=== PATIENT | female | born 1985 | race Two or more races ===

== ENCOUNTER 2024-11-30 10:13 | Outpatient (AMB) | payer OTHER, SELFPAY ==
--- NOTE | 2024-11-30 10:15 | A.OFFPC_ITS ---
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 Artist Color Separation Required: No Accompanied by: Self / Same As Patient Allergies No Known Allergies Allergy (Verified 11/30/24 10:16) Medication List - Last Reconciled 11/30/24 by Elier Borrero MD losartan 25 mg PO DAILY omeprazole 20 mg PO DAILY tramadol 100 mg PO Q6H PRN Tobacco use date assessed: 11/30/24 Dental Screening Dental Screen Date: 11/30/24 Did you have a dental visit in the last 12 months?: No Did you have a dental problem in the last 6 months where you did not have access to dental care?: No Was dental information given to patient?: No HPI HPI Comments History of Present Illness Details History of Present Illness The patient is a 39-year-old female presenting with chronic pain management and referral for neurosurgery. Cauda equina syndrome: - Diagnosed in 2020, with subsequent teddy k-to-back surgeries including L4-L5 fusion and C1-T1 repair. - Symptoms include worsening numbness an d tingling in the neck, with recent imaging suggesting possible nerve impingement. - Previous interventions include multipl e surgeries, with the last surgery exacerbating symptoms. - Recent imaging performed in [facility], awaiting records transfer for further evaluation. Hypertension: - Blood pressure recorded at 136/88 mmHg , managed with Losartan 25 mg. - Elevated blood pressure attributed to chronic pain. Vitamin D deficiency: - Previously prescribed Vitamin D, now t aking vxwi-sen-omaeslm supplements. Health Maintenance - Mammogram performed annually due to nik craft history of breast cancer. - Pap smear last performed in the previo us year, next due in January. Review of Systems - Neurological: Reports worsening numbne ss and tingling in the neck, arms falling asleep, and paresthesias. - Cardiovascular: Denies chest pain or p alpitations. - Respiratory: Denies dyspnea or cough. - Gastrointestinal: Denies abdominal licha n or changes in bowel habits. 10-point ROS reviewed and negative excep t as noted in HPI Allergies Medications - Losartan 25 mg for hypertension - Tramadol for pain management Medication History - Vitamin D prescribed previously, now t aking bwdp-cja-vliszli supplements. Current Substance Use - Smokes 3-4 cigarettes per day, started in 2019. Substance Use History - Began smoking in 2019 following surger ies and personal stressors. 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 - with two children, is from [place]. Physical Exam General: No apparent distress. Alert and oriented x 3. Head: Normocephalic, atraumatic Eyes: Pupils equal, round, and reactive to light. Extraocular movements intact Throat: Oropharynx clear. No tonsillar enlargement. ropharynx clear. Mucus membranes moist Neck: Supple. No lymphadenopathy. Thyroid non-tender. eft anterior descending artery distention. No jugular vein distention. No bruit. Cardiovascular: Regular rate and rhythm. Normal S1 and S2. No murmurs. murmurs, rubs, or gallops Lungs: Clear to auscultation bilaterally. Breath sounds equal bilaterally. No rales, ronchi, or wheezes. Abdomen: Non-tender. Non-distended. Bowel sounds auscultated. No hepatosplenomegaly. hepatosplenomegaly. No mass/rebound/guarding Extremities: No clubbing, cyanosis, or edema. lubbing, cyanosis, and edema. 2+ pulses Neuro: Central nerves II-XII grossly intact. Motor/sensory intact. Reflexes 2+. Gait normal. Reports tingling and paresthesias in arms. Skin: Warm, dry, and intact. No rash. Discussion Notes I discussed the patient's chronic pain management and the need for a neurosurgery referral. We reviewed the importance of obtaining previous imaging records for further evaluation. I also addressed the patient's hypertension management with Losartan and discussed the potential impact of chronic pain on blood pressure. We talked about the patient's Vitamin D deficiency and the current supplementation regimen. I encouraged the patient to consider smoking cessation and offered support for this. We planned follow-up appointments to review lab results and referrals. Plan 1. Cauda equina syndrome G83.4 H CC 72 - Referral to neurosurgery for further e valuation and management. Awaiting transfer of previous imaging records from [place] for comprehensive assessment. 2. Essential (primary) hypertension I10 - Continue management with Losartan 25 m g. Monitor blood pressure regularly, considering the impact of chronic pain on hypertension. 3. Vitamin D deficiency, unspecified E55.9 - Continue qtjp-dje-jaqbnoi Vitamin D rios pplementation. Monitor levels as part of routine lab work. Treatment Summary Anticapatory Guidance Patient Instructions - Continue taking Losartan 25 mg for blo od pressure management. - Take lnku-msg-hwyxuhx Vitamin D supple ments as directed. - Follow up with neurosurgery and physic al therapy as scheduled. - Consider smoking cessation options and discuss with the doctor if interested. - Return for follow-up in 1-2 weeks to akbar carbajal lab results and referrals. [facility] Surgical History (Updated 11/30/24 @ 10:42 by Elier Borrero MD) History of back surgery Family History (Updated 11/30/24 @ 10:25 by Carolyn Leal MA) Father Prostate cancer Mother Breast cancer Social History 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 1. Little interest or pleasure in doing things: several days 2. Feeling down, depressed, or hopeless: not at all 3. Trouble falling or staying asleep, or sleeping too much: more than half the days 4. Feeling tired or having little energy: nearly every day 5. Poor appetite or overeating: not at all 6. Feeling bad about yourself - or that you are a failure or have let yourself or your family down: not at all 7. Trouble concentrating on things, such as reading the newspaper or watching television: not at all 8. Moving or speaking so slowly that other people could have noticed. Or the opposite - being so fidgety or restless that you have been moving around a lot more than usual: not at all 9. Thoughts that you would be better off or of hurting yourself in some way: not at all Total score: 6 Depression Screening Interpretation: Positive Depression Screening Done: Yes 39260 - PHQ-9 Billing: Yes Source: Developed by Drs. Phu Sanders, Jasson Leiva and colleagues, with an educational letha from [employer]. Thrive Questionnaire Date Thrive assessed: 11/30/24 I am a: Patient What is your living situation today?: I have a steady place to live Within the past 12 months, did the food you bought not last and you didn't have the money to get more?: Never true Within the past 12 months, did you worry whether your food would run out before you got money to buy more?: Never true Do you have trouble paying for medicines?: No Do you have trouble getting transportation to medical appointments?: No Do you have trouble paying your heating and electricity bill?: No Do you have trouble taking care of your child, family member or friend?: No Are you currently unemployed and looking for a job?: No Are you interested in more education?: No Please select the resources that you would like help with: None Currently or been in a relationship where the following occur: I choose not to answer THRIVE Score: 0 AUDIT C Alcohol Use Questionnaire (AUDIT-C) 1. How often do you have a drink containing alcohol?: Never 3. How often do you have six or more drinks on one occasion?: Never Total Score: 0 EUGENIO-7 AMB Questionnaire EUGENIO-7 Date EUGENIO - 7 assessed: 11/30/24 Feeling nervous, anxious, or on edge: 0 = Not at all Not being able to stop or control worryin = Not at all Worrying too much about different things: 0 = Not at all Trouble relaxin = Not at all Being so restless that it is hard to sit still: 0 = Not at all Becoming easily annoyed or irritable: 0 = Not at all Feeling afraid as if something awful might happen: 0 = Not at all Total EUGENIO-7 score (0-4 normal; 5-9 mild; 10-14 moderate; 15-21 severe): 0 Source: Developed by Darcy Wade Kurt Kroenke and colleagues, with an educational letha from [employer]. Physical exam (Primary Care) Depression Screening Interpretation: Positive Currently or been in a relationship where the following occur: I choose not to answer Coding Level of Care Code New Pt Level 3 (35601) Diagnoses Encounter to establish care with new provider Z76.89 Routine lab draw Z01.89 Counseling, unspecified Z71.9 Screening for depression Z13.31 Encounter for screening, unspecified Z13.9 Screening for diabetes mellitus Z13.1 Screening for lipoid disorders Z13.220 Screening for HIV (human immunodeficiency virus) Z11.4 Adjustment disorder with depressed mood F43.21 Chronic lower back pain M54.50; G89.29 History of back surgery Z98.890 Low vitamin D level R79.89 Elevated alkaline phosphatase level R74.8 Cauda equina syndrome G83.4 Primary hypertension I10 Hypertension type: primary hypertension Nicotine use Z72.0 Additional Codes PHQ-9 - 72018 - PHQ-9 Billing: Yes ([id number]) Assessment & Plan Assessment & Plan (1) Encounter to establish care with new provider: Code(s): Z76.89 - Persons encountering health services in other specified circumstances (2) Routine lab draw: Code(s): Z01.89 - Encounter for other specified special examinations (3) Counseling, unspecified: Code(s): Z71.9 - Counseling, unspecified (4) Screening for depression: Code(s): Z13.31 - Encounter for screening for depression (5) Encounter for screening, unspecified: Code(s): Z13.9 - Encounter for screening, unspecified (6) Screening for diabetes mellitus: Code(s): Z13.1 - Encounter for screening for diabetes mellitus (7) Screening for lipoid disorders: Code(s): Z13.220 - Encounter for screening for lipoid disorders (8) Screening for HIV (human immunodeficiency virus): Code(s): Z11.4 - Encounter for screening for human immunodeficiency virus [HIV] (9) Adjustment disorder with depressed mood: Code(s): F43.21 - Adjustment disorder with depressed mood (10) Chronic lower back pain: Code(s): M54.50 - Low back pain, unspecified; G89.29 - Other chronic pain (11) History of back surgery: Code(s): Z98.890 - Other specified postprocedural states Category: Medical (12) Low vitamin D level: Code(s): R79.89 - Other specified abnormal findings of blood chemistry (13) Elevated alkaline phosphatase level: Code(s): R74.8 - Abnormal levels of other serum enzymes (14) Cauda equina syndrome: Code(s): G83.4 - Cauda equina syndrome (15) Hypertension: Code(s): I10 - Essential (primary) hypertension Qualifiers: Hypertension type: primary hypertension Qualified Code(s): I10 - Essential (primary) hypertension (16) Nicotine use: Code(s): Z72.0 - Tobacco use Plan Orders: Orders Hepatitis B Surface Antigen Today Z13.9 - Encounter for screening, unspecified, Z76.89 - Persons encountering health services in other specified circumstances HIV Ab/Ag Today Z13.9 - Encounter for screening, unspecified, Z76.89 - Persons encountering health services in other specified circumstances UA CC w/rflx Micro + Cult Today Z13.9 - Encounter for screening, unspecified, Z76.89 - Persons encountering health services in other specified circumstances Drug Screen Urine Today Z13.9 - Encounter for screening, unspecified, Z76.89 - Persons encountering health services in other specified circumstances Chlamydia Species Ab Panel Today Z13.9 - Encounter for screening, unspecified, Z76.89 - Persons encountering health services in other specified circumstances CT NG by PCR Urine Today Z13.9 - Encounter for screening, unspecified, Z76.89 - Persons encountering health services in other specified circumstances Syphilis Screen Today Z13.9 - Encounter for screening, unspecified, Z76.89 - Persons encountering health services in other specified circumstances Complete Blood Count Auto Diff Today Z13.9 - Encounter for screening, unspecified, Z76.89 - Persons encountering health services in other specified circumstances Comprehensive Met. Panel Today Z13.9 - Encounter for screening, unspecified, Z76.89 - Persons encountering health services in other specified circumstances Hemoglobin A1c Today Z13.9 - Encounter for screening, unspecified, Z76.89 - Persons encountering health services in other specified circumstances Hepatitis B Surface Antibody Today Z13.9 - Encounter for screening, unspecified, Z76.89 - Persons encountering health services in other specified circumstances Hepatitis C Antibody Today Z13.9 - Encounter for screening, unspecified, Z76.89 - Persons encountering health services in other specified circumstances Lipid Panel Today Z13.9 - Encounter for screening, unspecified, Z76.89 - Persons encountering health services in other specified circumstances Vitamin D 1,25 dihydroxy Today Z13.9 - Encounter for screening, unspecified, Z76.89 - Persons encountering health services in other specified circumstances Microalbumin, Random (w Creat) Today I10 - Essential (primary) hypertension PT Evaluation and Treatment Today G89.29 - Other chronic pain, M54.50 - Low back pain, unspecified, Z98.890 - Other specified postprocedural states Referrals Pain Management Referral G89.29 - Other chronic pain, M54.50 - Low back pain, unspecified, Z13.9 - Encounter for screening, unspecified, Z76.89 - Persons enco untering health services in other specified circumstances, Z98.890 - Other specified postprocedural states Neurosurgery Referral G89.29 - Other chronic pain, M54.50 - Low back pain, unspecified, Z98.890 - Other specified postprocedural states
[2024-11-30 10:26] VITALS: BP 136/88; PULSE 96; RESP 16; TEMP 36.8; O2SAT 98; BMI 35.7
== END 2024-11-30 11:00 | disposition home or self-care (01) ==
LOC: HO.HMCFMS 10:14
PROVIDERS: PCP Student in an Organized Health Care Education/Training Program; Visit Provider Student in an Organized Health Care Education/Training Program
DX: M54.50 Low back pain, unspecified (principal); G89.29 Other chronic pain; F43.21 Adjustment disorder with depressed mood; G83.4 Cauda equina syndrome; R79.89 Other specified abnormal findings of blood chemistry; R74.8 Abnormal levels of other serum enzymes; I10 Essential (primary) hypertension; Z72.0 Tobacco use

== ENCOUNTER 2024-11-30 10:13 | Outpatient (REF) | payer OTHER, SELFPAY ==
--- OUTSIDE RECORDS SUMMARY | 2024-11-30 15:24 | XMS_ITS | Encounter Summary ---
Author Organization [facility] Address [facility] [place] [address] Care Team Providers Care Damper Fitter Name Role Phone Grant Ac MD Primary Care Provider [phone] Encounter Details Date Type Department Care Team ([facility] st Contact Info) Description 10/16/2024 Results Follow-Up Primary Care at [address] [address] Jeni Butler, REAL ESTATE OPERATIONS MANAGER [address] [place] [address] CT Head wo Contrast (Standard), Vitamin D, 25-Hydroxy, Comprehensive metabolic panel Fasting required, MRI Brain wwo Contrast (Standard) Social History Tobacco Use Types Packs/Day Years Used Date Smoking Tobacco: Every Day Cigarettes Passive Smoke Exposure: Never Smokeless Tobacco: Never Alcohol Use Standard Drinks/Week Comments Never 1 (1 standard drink = 0.6 oz pur e alcohol) Overall Financial Resource Strain (CARDIA) Answe r Date Recorded How hard is it for you to pa y for the very basics like food, housing, medical care, and heating? Not hard at all 04/12/2022 Exercise Vital Sign Answer Date Recorde d On average, how many days pe r week do you engage in moderate to strenuous exercise (like a brisk walk)? 0 days 04/12/2022 On average, how many minutes do you engage in exercise at this level? 0 min 04/12/2022 Hunger Vital Sign Answer Date Recorded Within the past 12 months, y ou worried that your food would run out before you got the money to buy more. Never true 04/12/19 23 Within the past 12 months, t he food you bought just didn't last and you didn't have money to get more. Never true 04/12/2022 PRAPARE - Transportation Answer Date Re corded In the past 12 months, has l ack of transportation kept you from medical appointments or from getting medications? No 03/19 In the past 12 months, has l ack of transportation kept you from meetings, work, or from getting things needed for daily living? No 04/12/2022 Housing Stability Vital Sign Answer Raúl e Recorded In the last 12 months, was t here a time when you were not able to pay the mortgage or rent on time? No 04/12/2022 In the last 12 months, how many places have you lived? 1 04/12/2022 In the last 12 months, was t here a time when you did not have a steady place to sleep or slept in a long term (including now)? No 04/12/2022 DH IPV Inpatient Questions Answer Date Recorded Does Anyone Try to Keep You From Having Contact with Others or Doing Things Outside Your Home? no 03/14/2024 Feels Threatened by Someone no 02/16 Feels Unsafe at Home or Work/School no 03/14/2024 Physical Signs of Abuse Present no 03/14/2024 Comments No Sex and Gender Information Value Date Recorded Sex Assigned at Not on file Legal Sex Female 2:32 PM EDT Gender Identity Not on file Sexual Orientation Not on file documented as of this encounter Plan of Treatment Upcoming Encounters Date Type Department Care Team (Late st Contact Info) Description 02/01/2025 3:30 PM EST Office Visit Ophthalmology at [address] [address] Umair Chavez MD [address] [place] [address] [place] [address] documented as of this encounter Results * Vitamin B12 (10/16/2024 10:18 AM EDT) Vitamin B12 746 232 - 1,245 pg/mL 10/16/2024 4:26 PM EDT [facility] Blood VENOUS BLOOD SPECIMEN / Unknown Venipuncture / Unknown 10/16/2024 10:18 AM EDT 10/16/2024 10:18 AM EDT us Jeni Butler REAL ESTATE OPERATIONS MANAGER CHEMISTRY ORDERABLES Ivette l Result [facility] [address] [place] [address] documented in this encounter Visit Diagnoses Diagnosis Facial twitching- Primary Other facial nerve disorders Numbness Disturbance of skin sensation documented in this encounter Care Teams Damper Fitter Relationship Specialty Start Date End Date Grant Ac MD [address] [place] [address] PCP - General Family Medicine 07/02/17 documented as of this encounter
--- OUTSIDE RECORDS SUMMARY | 2024-11-30 15:24 | XMS_ITS | Encounter Summary ---
Author Organization [facility] [place] [address] Care Team Providers Care Manager Hematology Name Role Phone Grant Ac MD Primary Care Provider [phone]- [phone] Reason for Visit * Reason Onset Date Comments Medication Refill 02/10/2022 Encounter Details Date Type Department Care Team (Late Contact Info) Description 02/10/2022 Refill Primary Care at [address] [phone] Grant Ac MD [address] [place] [address] Social History Tobacco Use Types Packs/Day Years Used Date Smoking Tobacco: Every Day Cigarettes Smokeless Tobacco: Never Alcohol Use Standard Drinks/Week Comments Never 1 (1 standard drink = 0.6 oz pur e alcohol) Comments No Sex and Gender Information Value Date Recorded Sex Assigned at Not on file Legal Sex Female 2:32 PM EDT Gender Identity Not on file Sexual Orientation Not on file documented as of this encounter Plan of Treatment Upcoming Encounters Date Type Department Care Team (Late Contact Info) Description 02/01/2025 3:30 PM EST Office Visit Ophthalmology at [facility] [address] [place] [address] Umair Chavez MD [address] [facility] [place] [address] documented as of this encounter Visit Diagnoses Not on filedocumented in this encounter Additional Health Concerns Infection Onset Date Last Indicated Resolved Time Rule Out COVID-19 03/14/2024 03/14/2024 03/15/2024 12:01 AM EST documented as of this encounter Care Teams Manager Hematology Relationship Specialty Start Date End Date Grant Ac MD [address] [facility] [place] [address] PCP - General Family Medicine 07/02/17 documented as of this encounter
--- OUTSIDE RECORDS SUMMARY | 2024-11-30 15:24 | XMS_ITS | Encounter Summary ---
Author Organization [facility] [place] [address] Care Team Providers Care Auto Body Shop Manager Name Role Phone Grant Ac MD Primary Care Provider [phone]- [phone] Encounter Details Date Type Department Care Team (Late Contact Info) Description 08/15/2021 Refill Primary Care at [address] [phone] Grant Ac MD [address] [place] [address] Social History Tobacco Use Types Packs/Day Years Used Date Smoking Tobacco: Former Cigarettes Q uit: 03/01/2021 Smokeless Tobacco: Never Alcohol Use Standard Drinks/Week [...] 3:30 PM EST Office Visit Ophthalmology at [facility] [address] [place] [address] Umair Chavez MD [address] [facility] [place] [address] documented as of this encounter Visit Diagnoses Not on filedocumented in this encounter Additional Health Concerns Infection Onset Date Last Indicated Resolved Time Rule Out Respiratory 08/16/2021 08/16/20212 022 1:13 AM EDT Rule Out COVID-19 08/16/2021 08/16/2021 08/17/2021 1:13 AM EDT Rule Out COVID-19 03/14/2024 03/14/2024 03/15/2024 12:01 AM EST documented as of this encounter Care Teams Auto Body Shop Manager Relationship Specialty Start Date End Date Grant Ac MD [address] [place] [address] PCP - General Family Medicine 07/02/17 documented as of this encounter
--- OUTSIDE RECORDS SUMMARY | 2024-11-30 15:24 | XMS_ITS | Encounter Summary ---
Author Organization [facility] One [facility] [place] [address] Care Team Providers Care Pbx Teacher Name Role Phone Grant Ac MD Primary Care Provider [phone]- [phone] Reason for Visit * Reason Onset Date Comments Neck And Arm Pain 09/09/2024 Encounter Details Date Type Department Care Team (Late st Contact Info) Description 09/09/2024 Nurse Triage Primary Care at [address] [place] [address] Seth Rodríguez RN Neck And Arm Pain Social History Tobacco Use Types Packs/Day Years [...] place to sleep or slept in a usp (including now)? No 04/12/2022 [facility] IP[facility] Inpatient [...] on file documented as of this encounter Miscellaneous Notes * Telephone Encounter - Seth Rodríguez RN - 09/10/2024 1:49 PM EDT Left message to call back. [facility] Please send message for Team B nursing response, advise patient to be near phone with ringer and we will attempt to call back as soon as possible. * Telephone Encounter - Seth Rodríguez RN - 09/10/2024 1:49 PM EDT Copied from [facility] #[id number]. Topic: Generic Non-Symptom Based - Generic Call >> Sep 10, 2024 12:48 PM Osiel Christine wrote: Reason: patient calling back PCP: GRANT AC Reason for Call: patient is returning from nurse . Please call back with further assistance. * Telephone Encounter - Seth Rodríguez RN - 09/09/2024 5:22 PM EDT This is an ongoing concern for the patient, she was referred to PT in November 2023 for symptoms, did initial appt and no follow ups after, doing PT exercises at home. Left message to call back. [facility] Please send message for Team B nursing response, advise patient to be near phone with ringer and we will attempt to call back as soon as possible. Message sent to patient via [facility]. * Telephone Encounter - Seth Rodríguez RN - 09/09/2024 5:22 PM EDT Appointment Request From: Ivonne Andrade With Provider: Grant Ac MD [[facility] [place]] Preferred Date Range: 09/10/2024 - 09/14/2024 Preferred Times: Any Reason for visit: Neck and arms pain Health Maintenance Topic: Comments: Hello there I am really in lot of pain my neck and my arms are hurting so badly there getting numb more and more I can???t even vacuum one room with out being so much in pain I have been doing PT every morning and is not getting better my legs are weak now my arms two I am really struggling to get my personal tasks done. documented in this encounter Plan of Treatment Upcoming Encounters Date Type Department Care Team ([facility] st Contact Info) Description 02/01/2025 3:30 PM EST Office Visit Ophthalmology at [address] [phone] Umair Chavez MD [address] [place] [address] [place] [address] documented as of this encounter Visit Diagnoses Not on filedocumented in this encounter Care Teams Pbx Teacher Relationship Specialty Start Date End Date Grant Ac MD [address] [place] [id number] PCP - General Family Medicine 07/02/17 documented as of this encounter
--- OUTSIDE RECORDS SUMMARY | 2024-11-30 15:24 | XMS_ITS | Encounter Summary ---
Author Organization [facility] [place] [address] Care Team Providers Care Ditch Rider Name Role Phone Grant Ac MD Primary Care Provider +1- [phone] Reason for Visit * Reason Onset Date Comments Medication Refill 06/23/2021 Encounter Details Date Type Department Care Team (Late Contact Info) Description 06/23/2021 Refill Primary Care at [address] [phone] Grant Ac MD [address] [place] [address] Social History Tobacco Use Types Packs/Day Years Used Date Smoking Tobacco: Former Cigarettes Smokeless Tobacco: Never Alcohol Use Standard [...] 3:30 PM EST Office Visit Ophthalmology at [facility] [address] [place] [address] Umair Chavez MD [address] [facility] [address] documented as of this encounter Visit Diagnoses Not on filedocumented in this encounter Additional Health Concerns Infection Onset Date Last Indicated Resolved Time Rule Out Respiratory 08/16/2021 08/16/202108/17/2 022 1:13 AM EDT Rule Out COVID-19 08/16/2021 08/16/2021 08/17/2021 1:13 AM EDT Rule Out COVID-19 03/14/2024 03/14/2024 03/15/2024 12:01 AM EST documented as of this encounter Care Teams Ditch Rider Relationship Specialty Start Date End Date Grant Ac MD [address] [place] [address] [place] [address] PCP - General Family Medicine 07/02/17 documented as of this encounter
--- OUTSIDE RECORDS SUMMARY | 2024-11-30 15:24 | XMS_ITS | Encounter Summary ---
Author Organization [facility] Address [facility] [place] [address] Care Team Providers Care Crossing Gateman Name Role Phone Grant Ac MD Primary Care Provider +1- [phone] Reason for Visit * Reason Comments Medication Refill Encounter Details Date Type Department Care Team ([facility] Contact Info) Description 2022 Refill Otolaryngology at [address] [phone] Ninfa Julian PA [address] [place] [id number] Nasal obstruction; Chronic allergic rhinitis Social History Tobacco Use Types Packs/Day Years [...] place to sleep or slept in a correction (including now)? No 04/12/2022 Comments No Sex and Gender Information Value Date Recorded Sex Assigned at Not on file Legal Sex Female 2:32 PM EDT Gender Identity Not on file Sexual Orientation Not on file documented as of this encounter Plan of Treatment Upcoming Encounters Date Type Department Care Team ([facility] st Contact Info) Description 02/01/2025 3:30 PM EST Office Visit Ophthalmology at [address] [phone] Umair Chavez MD [address] [place] [address] [place] [address] documented as of this encounter Visit Diagnoses Diagnosis Nasal obstruction Other diseases of nasal cavity and sinuses Chronic allergic rhinitis Allergic rhinitis, cause unspecified documented in this encounter Additional Health Concerns Infection Onset Date Last Indicated Resolved Time Rule Out COVID-19 03/14/2024 03/14/2024 03/15/2024 12:01 AM EST documented as of this encounter Care Teams Crossing Gateman Relationship Specialty Start Date End Date Grant Ac MD [address] [place] [id number] PCP - General Family Medicine 07/02/17 documented as of this encounter
--- OUTSIDE RECORDS SUMMARY | 2024-11-30 15:24 | XMS_ITS | Clinical Summary ---
Author Organization [facility] Address [facility] [place] [address] Care Team Providers Care Finding Fastener Name Role Phone Grant Ac MD Primary Care Provider [phone] Allergies Active Allergy Reactions Criticality Noted Date Comments Lisinopril Other (See Comments) 02/28/2023 Cough Medications fluticasone propionate (Flonase) 50 mcg/actuation [place], SuspensionIndica tions:Acute non-recurrent frontal sinusitis 2 sprays by Each Nare route daily. 16 mL 11 01/20/2023 Active losartan (Cozaar) 25 mg tabletIndication s:Hypertension, unspecified type TAKE 1 TABLET BY MOUTH EVERY DAY 90 tablet 3 03/17/2024 Active venlafaxine XR (Effexor-XR) 150 mg ER 24 hr capsule Take 1 capsule by mouth daily. 90 capsule 3 04/07/2024 Active omeprazole (PriLOSEC) [address] capsule TAKE 1 CAPSULE BY MOUTH EVERY DAY 30 capsule 5 06/08/2024 Active traMADoL (Ultram) 50 mg tabletIndication s:Other chronic pain,Recurrent low back pain Take 2 tablets by mouth every 6 hours as needed for Pain. Must last 14 days 112 tablet 12/04/2024 Active Active Problems Patient Care Coordination No te Formatting of this note migh t be different from the original. CSA-OA with Dr. 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 Agreement Review/Update every year. Risk assessment completed on: 10/19/2019 ORT Risk Assessment: This SmartLink cannot be used in this activity. DAST-10 Risk Assessment: This SmartLink cannot be used in this activity. Urine Drug Screen (UDS): Yearly or at provider discretion- none on file Assessment & Plan (05/23/2020 2:16 PM EST): Patient Controlled Drug Refill Request Date of last controlled substance refill: 04/28/20 Controlled Substance Agreement on file yes. Is medication due: no- due 05/26/20 Last Urine Drug Screen: none Urine Consistent: none PDMP Consistent: yes Office visit within 6 months: Last visit with authorizing provider: Office Visit: 02/02/20 Next visits with authorizing provider: Visit date not found Assessment & Plan (04/26/2020 10:57 AM EST): Patient Controlled Drug Refill Request Date of last controlled substance refill: 03/31/20 Controlled Substance Agreement on file yes. Is medication due: no- due 04/28/20 Last Urine Drug Screen: none Urine Consistent: none PDMP Consistent: yes Office visit within 6 months: Last visit with authorizing provider: Office Visit: 02/02/20 Next visits with authorizing provider: Visit date not found Assessment & Plan (02/26/2020 4:01 PM EST): Patient Controlled Drug Refill Request Date of last controlled substance refill: 02/04/20 Controlled Substance Agreement on file yes. Is medication due: no- due 03/03/20 Last Urine Drug Screen: none Urine Consistent: none PDMP Consistent: yes Office visit within 6 months: Last visit with authorizing provider: Office Visit: 02/02/20 Next visits with authorizing provider: 03/01/2020 Assessment & Plan (01/04/2020 2:00 PM EDT): Patient Controlled Drug Refill Request Date of last controlled substance refill: 12/10/19 Controlled Substance Agreement on file yes. Is medication due: no- due 01/07/20 Last Urine Drug Screen: none Urine Consistent: none PDMP Consistent: yes Office visit within 6 months: Last visit with authorizing provider: Office Visit: 10/07/19 Next visits with authorizing provider: 01/08/2020 Assessment & Plan (12/07/2019 8:45 AM EDT): Patient Controlled Drug Refill Request Date of last controlled substance refill: 11/12/19 Controlled Substance Agreement on file yes. Is medication due: no- due 12/10/19 Last Urine Drug Screen: none Urine Consistent: none PDMP Consistent: yes Office visit within 6 months: Last visit with authorizing provider: Office Visit: 10/07/19 Next visits with authorizing provider: 01/08/2020 Lower extremity weakness 09/14/2019 s/p revision L4-L5 discectom y for cauda equina 04/21/19 (Dr. Cruz) 04/21/2019 Cauda equina syndrome s/p L4 -L5 laminectomy L4-L5 diskectomy 04/13/2019 (Dr. Cruz) 04/13/2019 Recurrent low back pain 03/22/2019 Plantar fasciitis of left foot 12/18/2017 Plantar wart 12/18/2017 Overview (12/18/2017): Right hallux Encounters Date Type Department Care Team Description 11/27/2024 Refill Primary Care at [address] [phone] Grant Ac MD Other chronic pain; Recurrent low back pain 11/16/2024 Refill Primary Care at [address] [phone] Grant Ac MD Other chronic pain; Recurrent low back pain 10/28/2024 Refill Primary Care at [address] [phone] Brian Horne PA Other chronic pain; Recurrent low back pain 10/23/2024 Telephone Primary Care at [address] [phone] Marcelle Lockhart LPN 10/19/2024 Refill Primary Care at [address] [phone] Grant Ac MD Other chronic pain; Recurrent low back pain; 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 10/17/2024 1:54 PM EDT - 10/17/2024 11:59 PM EDT Hospital Encounter MRI at [address] [phone] Jeni Butler APRN Slurred speech; Generalized weakness Discharge Disposition: Home 10/16/2024 10:30 AM EDT Laboratory Appointment Lab at [address] [address] Encounter for vitamin deficiency screening; Slurred speech; Generalized weakness; Vitamin D deficiency; Numbness; Facial twitching 10/16/2024 10:00 AM EDT - 10/16/2024 11:59 PM EDT Hospital Encounter CAT Scan at [address] [phone] Jeni Butler APRN Slurred speech; Generalized weakness Discharge Disposition: Home 10/16/2024 9:35 AM EDT Office Visit Primary Care at [address] [phone] Jeni Butler APRN Recurrent low back pain; Slurred speech; Facial twitching; Generalized weakness; Numbness; Encounter for vitamin deficiency screening 10/16/2024 Legacy Encounter Primary Care at [address] [phone] Jeni Butler APRN 10/16/2024 Results Follow-Up Primary Care at [address] [phone] Jeni Butler, ELECTRIC MOTOR AND GENERATOR ASSEMBLER CT Head wo Contrast (Standard), Vitamin D, 25-Hydroxy, Comprehensive metabolic panel Fasting required, MRI Brain wwo Contrast (Standard) 10/16/2024 Travel 10/05/2024 Telephone Primary Care at [address] [phone] Gali Carlson RN 10/04/2024 Refill Primary Care at [address] [phone] Grant Ac MD Other chronic pain; Recurrent low back pain 09/21/2024 Refill Primary Care at [address] [phone] Grant Ac MD Other chronic pain; Recurrent low back pain 09/09/2024 Nurse Triage Primary Care at [address] [phone] Seth Rodríguez RN Neck And Arm Pain 09/07/2024 Refill Primary Care at [address] [phone] Grant Ac MD Other chronic pain; Recurrent low back pain from Last 3 Months Immunizations Immunization Administration Dates Next Due Covid-19 Monovalent (Pfizer Comirnaty purple cap) 12yrs+ (5165-2255) 05/17/2020 Influenza Quadrivalent, Preservative Free 2022,03/13/2019 Influenza Trivalent, Preservative Free 2,12/26/2017 Pneumococcal 20-Valent Conjugate (Prevnar 20) Pneumococcal 23-Valent Polysaccharide (Pneumovax 23) 10/10/2020 Td Adult 12/30/2017 Tdap (Adacel, Boostrix) 10/10/2020 Family History Medical History Relation Comments Breast Cancer Maternal Aunt Breast Cancer Maternal Grandmother Ovarian Cancer Neg Hx Uterine Cancer Neg Hx Relation Status Comments Maternal Aunt Maternal Grandmother Social History Tobacco Use Types Packs/Day Years Used Date Smoking Tobacco: Every Day Cigarettes Passive Smoke Exposure: Never Smokeless Tobacco: Never Tobacco Cessation:Ready to Q uit: Not Asked; Counseling Given: Not Answered Alcohol Use Standard Drinks/Week Comments Never 1 [...] place to sleep or slept in a residential (including now)? No 04/12/2022 DH IPV Inpatient [...] on file Sexual Orientation Not on file Last Filed Vital Signs Vital Sign Reading Time Taken Comments Blood Pressure 148/78 10/16/2024 9:27 AM EDT Pulse 99 10/16/2024 9:27 AM EDT Temperature 36.4 C (97.5 F) 03/15/2024 2:00 AM EST Respiratory Rate 24 03/14/2024 10:00 PM EST Oxygen Saturation 98% 10/16/2024 9:27 AM EDT Inhaled Oxygen Concentration - - Weight 88.5 kg (195 lb) 10/16/2024 9:27 AM EDT Height 156 cm (5' 1.42 ) 10/16/2024 9:27 AM EDT Body Mass Index 36.35 10/16/2024 9:27 AM EDT Plan of Treatment Upcoming Encounters Date Type Department Care Team ([facility] st Contact Info) Description 02/01/2025 3:30 PM EST Office Visit Ophthalmology at [address] [phone] Umair Chavez MD [address] [place] [address] [place] [address] Health Maintenance Due Date Last Done Comments HIV screen 2004 Hepatitis C Screening 2004 Hepatitis B vaccine (0-59 yr s) and Risk (1) 2005 Covid-19 Vaccine (3 - 2024-2 6 season) 2024 06/15/2020, 05/17/2020 Influenza (Flu) vaccine (1 o f 1 - Influenza standard series) 11/16/2024 01/30/2023, 01/16/2022, 03/13/2019, Additional history exists HPV test 01/26/2026 01/26/2021 PAP Smear 01/26/2026 01/26/2021 Diabetes Screening (HgbA1C o r Glucose) 10/17/2027 10/16/2024, 03/14/2024, 03/13/2024, Additional history exists Lipid Screening 02/29/2028 02/28/2023 Tetanus/Diphtheria/Pertussis Vaccines (2 - Td or Tdap) 10/10/2030 10/10/2020, 12/30/2017 Pneumococcal Vaccine: At-Ris k 5-49yrs Completed 01/30/2023, 10/10/2020 Medical Devices Implanted Type Area Environmental Quality Analyst Device Identifier Shelf Expiration Date Model / Serial / Lot Seala,Dura,Spi ne,Ext,5ml ([id number]) - [id number] Implanted:Qty: 1 on 04/21/2019 by Kunal Cruz MD at [facility] IMPLANTS DO NOT USE [employer] ([employer]) - [employer]TE[employer] LI [id number] / / [id number] Procedures Procedure Name Priority Date/Time Associated Diagnosis Comments MRI BRAIN WWO CONTRAST (GENERIC) STAT 10/17/2024 2:56 PM EDT Slurred speech Generalized weakness CT HEAD WO CONTRAST (GENERIC) STAT 10/16/2024 10:37 AM EDT Slurred speech Generalized weakness VITAMIN B12 Add-On 10/16/2024 10:18 AM EDT Numbness Facial twitching COMPREHENSIVE METABOLIC PANEL Routine 10/16/2024 10:18 AM EDT Slurred speech Generalized weakness VITAMIN D, 25-HYDROXY Routine 10/16/2024 10:18 AM EDT Encounter for vitamin deficiency screening LIPID PANEL (REFLEX DIRECT LDL) Routine 02/28/2023 10:19 AM EST General medical exam HPV Routine 01/26/2021 11:18 AM EST GASOLINE FINISHER CYTOLOGY FINAL REPORT Routine 01/26/2021 11:18 AM EST from Last 3 Months or Most Recently Relevant to Health Maintenance Results * MRI Brain wwo Contrast (Standard) (10/17/2024 2:56 PM EDT) WORKSTATION ID [id number] DH RAD Anatomical Region Laterality Modality Head Magnetic Resonan ce Impressions 10/17/2024 4:31 PM EDT No acute intracranial abnormalities. No evidence for recent CVA. Subtle, likely chronic and benign white matter changes, as discussed above. Thank you for letting us participate in the care of this patient. If you are a health care provider and have any questions regarding this report, please contact the number below. For patients who have questions please contact the health adult care manager that requested your imaging first. Electronically signed by: ISAI INGRAM MD, [facility] ([phone]), at 10/17/2024 4:31 PM Narrative 10/17/2024 4:31 PM EDT EXAMINATION: MRI BRAIN WWO CONTRAST (STANDARD) CLINICAL HISTORY: slurred speech, weakness R47.81, Slurred speech - R53.1, Weakness TECHNIQUE: MRI of the brain was performed before and after the intravenous administration of 17cc Dotarem. COMPARISON: None FINDINGS: Brain: There are small subcortical white matter signal hyperintensities on T2 limited to the frontal lobes. There is no associated diffusion restriction nor postcontrast enhancement. These white matter findings, although nonspecific, typically reflect chronic microvascular ischemic foci or postinflammatory change. Post migrainous change, Lyme disease, and recreational drug use could look similarly. Intracranial structures are otherwise normal. No mass effect, extra-axial collections, nor infarcts. No abnormal postcontrast enhancement. Cerebral ventricles: Normal. No ventriculomegaly. Bones/joints: Unremarkable. Paranasal sinuses: Normal as visualized. No acute sinusitis. Mastoid air cells: Normal as visualized. No mastoid effusion. Orbits: Unremarkable. Soft tissues: Unremarkable. Procedure Note Isai Ingram MD - 10/17/2024 EXAMINATION: MRI BRAIN WWO CONTRAST (STANDARD) CLINICAL HISTORY: slurred speech, weakness R47.81, Slurred speech - R53.1, Weakness TECHNIQUE: MRI of the brain was performed before and after the intravenousadministration of 17cc Dotarem. COMPARISON: None FINDINGS: Brain: There are small subcortical white matter signal hyperintensities onT2 limited to the frontal lobes. There is no associated diffusion restrictionnor postcontrast enhancement. These white matter findings, althoughnonspecific, typically reflect chronic microvascular ischemic foci orpostinflammatory change. Post migrainous change, Lyme disease, and recreational drug usecould look similarly. Intracranial structures are otherwise normal. No mass effect,extra-axial collections, nor infarcts. No abnormal postcontrast enhancement. Cerebral ventricles: Normal. No ventriculomegaly. Bones/joints: Unremarkable. Paranasal sinuses: Normal as visualized. No acute sinusitis. Mastoid air cells: Normal as visualized. No mastoid effusion. Orbits: Unremarkable. Soft tissues: Unremarkable. IMPRESSION No acute intracranial abnormalities. No evidence for recent CVA. Subtle, likely chronic and benign white matter changes, as discussedabove. Thank you for letting us participate in the care of this patient. If youare a health care provider and have any questions regarding this report,please contact the number below. For patients who have questions please contactthe health adult care manager that requested your imaging first. Electronically signed by: ISAI INGRAM MD, [facility]([phone]), at 10/17/2024 4:31 PM us Jeni Butler APRN IM MRI ORDERABLES Final Result * CT Head wo Contrast (Standard) (10/16/2024 10:37 AM EDT) [employer] Signature WORKSTATION ID [id number] DH RAD Anatomical Region Laterality Modality Head Computed Tomogra phy Impressions 10/16/2024 10:39 AM EDT Negative, unenhanced head CT. I do note that an acute, nonhemorrhagic brain infarct may be missed initially by unenhanced CT. Follow-up [address] scanning or more near-term diffusion MRI should be considered, as clinically appropriate. Thank you for letting us participate in the care of this patient. If you are a health care provider and have any questions regarding this report, please contact the number below. For patients who have questions please contact the health adult care manager that requested your imaging first. Electronically signed by: ISAI INGRAM MD, [facility] ([phone]), at 10/16/2024 10:39 AM Narrative 10/16/2024 10:39 AM EDT EXAMINATION: CT HEAD WO CONTRAST (STANDARD) CLINICAL HISTORY: stroke like symptoms R47.81, Slurred speech - R53.1, Weakness TECHNIQUE: Transaxial images from the skull base to the vertex were acquired without contrast enhancement. MIPS: Unless otherwise stated or recommended, any incidental findings to not require imaging follow up. Dose control: Automated exposure control utilized. Patient had 5 CT scan(s) and 0 myocardial perfusion scan(s) in the past 12 months. COMPARISON: 03/06/2024 FINDINGS: Brain: The intracranial structures appear normal without evidence for mass effect, hemorrhage, or acute infarction. No extra-axial collections nor evidence for head trauma. Cerebral ventricles: Normal. Paranasal sinuses: Clear. Mastoid air cells: Clear. Bones: No significant abnormalities. Soft tissues: No significant abnormalities. Procedure Note Isai Ingram MD - 10/16/2024 EXAMINATION: CT HEAD WO CONTRAST (STANDARD) CLINICAL HISTORY: stroke like symptoms R47.81, Slurred speech - R53.1, Weakness TECHNIQUE: Transaxial images from the skull base to the vertex were acquiredwithout contrast enhancement. MIPS: Unless otherwise stated or recommended, any incidental findings to notrequire imaging follow up. Dose control: Automated exposure control utilized. Patient had 5 CT scan(s) and 0 myocardial perfusion scan(s) in the past12 months. COMPARISON: 03/06/2024 FINDINGS: Brain: The intracranial structures appear normal without evidence formass effect, hemorrhage, or acute infarction. No extra-axial collections norevidence for head trauma. Cerebral ventricles: Normal. Paranasal sinuses: Clear. Mastoid air cells: Clear. Bones: No significant abnormalities. Soft tissues: No significant abnormalities. IMPRESSION Negative, unenhanced head CT. I do note that an acute, nonhemorrhagic brain infarct may be missedinitially by unenhanced CT. Follow-up [address] scanning or more near-term diffusionMRI should be considered, as clinically appropriate. Thank you for letting us participate in the care of this patient. If youare a health care provider and have any questions regarding this report,please contact the number below. For patients who have questions please contactthe health adult care manager that requested your imaging first. Electronically signed by: ISAI INGRAM MD, [facility]([phone]), at 10/16/2024 10:39 AM us Jeni Butler APRN IMG CT ORDERABLES Final R esult * Vitamin D, 25-Hydroxy (10/16/2024 10:18 AM EDT) Vitamin D Total 25 OH 23 21 - 100 ng/ml 10/16/2024 1:17 PM EDT [facility] Vitamin D Total 25 OH Interp Insufficient 10/16/2024 1:17 PM EDT [facility] Blood VENOUS BLOOD SPECIMEN / Unknown Venipuncture / Unknown 10/16/2024 10:18 AM EDT 10/16/2024 10:18 AM EDT us Jeni S Butler ELECTRIC MOTOR AND GENERATOR ASSEMBLER CHEMISTRY ORDERABLES Ivette l Result Performing Organization Address [facility]/ZIP Co de Phone Number [facility] [address] [place] [address] * Vitamin B12 (10/16/2024 10:18 AM EDT) Vitamin B12 746 232 - 1,245 pg/mL 10/16/2024 4:26 PM EDT [facility] Blood VENOUS BLOOD SPECIMEN / Unknown Venipuncture / Unknown 10/16/2024 10:18 AM EDT 10/16/2024 10:18 AM EDT us Jeni S Butler ELECTRIC MOTOR AND GENERATOR ASSEMBLER CHEMISTRY ORDERABLES Ivette l Result Performing Organization Address [facility]/ZIP Co de Phone Number [facility] [address] [place] [address] * (ABNORMAL) Comprehensive metabolic panel Fasting required (10/16/2024 10:18 AM EDT) Glucose 91 65 - 99 mg/dL 10/16/2024 11:03 AM EDT [facility] Comment: Fasting Glucose Interpretive Criteria: Normal: 65-99 mg/dL Prediabetes: 100-125 mg/dL Consistent with Diabetes Mellitus: > or = 126 mg/dL Classification and Diagnosis of Diabetes: Standards of Care in Diabetes - 2022. Diabetes Care 202; 46:S19. Fasting is defined as no caloric intake for at least 8 hours. Blood Urea Nitrogen 7(L) 8 - 18 mg/dL 10/16/2024 11:03 AM [facility] Creatinine 0.48(L) 0.70 - 1.20 mg/dL 10/16/2024 11:03 AM [facility] Sodium 139 135 - 145 mMol/L 10/16/2024 11:03 AM [facility] Potassium 4.4 3.5 - 5.0 mMol/L 10/16/2024 11:03 AM [facility] Chloride 98 98 - 107 mMol/L 10/16/2024 11:03 AM [facility] Carbon Dioxide 27 22 - 31 mMol/L 10/16/2024 11:03 AM [facility] Anion Gap 14 5 - 15 mMol/L 10/16/2024 11:03 AM [facility] Calcium 9.5 8.5 - 10.5 mg/dL 10/16/2024 11:03 AM [facility] Protein, Total 6.9 6.1 - 8.0 g/dL 10/16/2024 11:03 AM [facility] Albumin 4.1 3.2 - 5.2 g/dL 10/16/2024 11:03 AM [facility] Aspartate Aminotransferase 21 <=30 unit/L 10/16/2024 11:03 AM [facility] Alanine Aminotransferase 20 0 - 30 unit/L 10/16/2024 11:03 AM [facility] Alkaline Phosphatase 125(H) 35 - 105 unit/L 10/16/2024 11:03 AM [facility] Bilirubin, Total 0.3 <=1.3 mg/dL 10/16/2024 11:03 AM [facility] Est Glomerular Filtration Rate - Female 125 >=90 mL/min/1. 73 m 10/16/2024 11:03 AM [facility] Comment: This patient's estimated GFR was calculated using the 2020 CKD-EPI equation. The estimated GFR can vary from the measured GFR by up to 30% in the absence of rapidly changing kidney function. Assessment of the estimated GFR is not appropriate when creatinine concentrations are rapidly changing. For clinical situations in which a more precise estimate of GFR is necessary, consider alternative methods of GFR estimation such as a 24-hour urine creatinine clearance. Assignment of CKD stage 1 - 5 for patients with an eGFR near the transition point between stages may be based on clinical assessment of muscle mass and symptoms in addition to eGFR. Link: eGFR Calculator [employer] Fasting Status Yes 10/16/2024 11:03 AM EDT [facility] Blood VENOUS BLOOD SPECIMEN / Unknown Venipuncture / Unknown 10/16/2024 10:18 AM EDT 10/16/2024 10:18 AM EDT us Jeni Butler ELECTRIC MOTOR AND GENERATOR ASSEMBLER CHEMISTRY ORDERABLES Ivette higuera Result [facility] [address] [place] [address] * Lipid Panel (Reflex Direct LDL) (02/28/2023 10:19 AM EST) [facility] Signature Cholesterol, Total 253 mg/dL [facility] Comment: Lower Risk: <200 mg/dL Average Risk: 200-239 mg/dL Higher Risk: >vr=943 mg/dL Triglyceride 194 mg/dL [facility] Comment: Average Risk/Lower Risk: <150 mg/dL Borderline High Risk: 150-199 mg/dL High Risk: 200-499 mg/dL Very High Risk: >ey=076 mg/dL HDL Cholesterol 48 mg/dL [facility] Comment: Males: Higher Risk: <40 mg/dL Females: Higher Risk: <50 mg/dL LDL Cholesterol 166 mg/dL [facility] Comment: Lowest Risk: <100 mg/dL Lower Risk: 100-129 mg/dL Borderline High Risk: 130-159 mg/dL High Risk: 160-189 mg/dL Very High Risk: >tw=009 mg/dL Cholesterol/HDL Ratio 5.[address] [facility] Lipid Interpretation See Note [facility] Comment: Lipid management should be guided by a patient s ASCVD risk, goals and preferences. ACC/AHA Guidelines recommend high intensity statin if clinical ASCVD or LDL greater than or equal to 190 mg/dL. http://tinyurl.com/ZUO-OSC-Jemrxtdek Adults aged 40-75 with LDL 70-189 mg/dL should have their 10 year ASCVD risk estimated with the ACC/AHA ASCVD risk millwork estimator http://tools.acc.org/YKMRL-Dqmy-Yhxsntqcb/ Statin should be discussed if risk greater than or equal to 7.5% in non-diabetics. With diabetes, moderate intensity statin is recommended if risk less than 7.5%, high intensity if risk greater than or equal to 7.5%. Annual lipid monitoring on statins is not necessary. Evaluate secondary causes of Triglycerides greater than 500 mg/dL or LDL greater than 190 mg/dL: See table 6 of ACC/AHA Guideline. Lifestyle modification is a critical component of ASCVD risk reduction. Blood 02/28/2023 10:1 9 AM EST 02/28/2023 10:20 AM EST Narrative Resulting Agency Comment Spec In Lab us Grant Ac MD CHEMISTRY ORDERABLES Final Result Performing Organization Address City/[facility] Co de Phone Number [facility] [address] [place] [phone] * HPV (01/26/2021 11:18 AM EST) HPV16 NEGATIVE NEGATIVE [facility] HPV 18 NEGATIVE NEGATIVE [facility] HPV Other HR NEGATIVE NEGATIVE [facility] HPV Interpretation See Comment [facility] Comment: NEGATIVE for high-risk HPV *. * Testing negative for high risk HPV means that the specimen is negative for the following 14 types tested: types 16, 18, 31, 33, 35, 39, 45, 51, 52, 56, 58, 59, 66, and 68. The test is not intended to detect low risk HPV types. Maddie Amado HPV test Specimen: HPV Testing - Cytology Liquid Based Prep Cervical 01/26/2021 11:1 8 AM EST 01/26/2021 10:29 PM EST Narrative Resulting Agency Comment Spec In Lab us Candace Garcia APRN PATHOLOGY/CYTOLOGY ORDERAB LES Final Result Performing Organization Address City/[facility] Co de Phone Number [facility] [place] [place] [address] * Project Assistant Cytology Final Report (01/26/2021 11:18 AM EST) Project Assistant Cytology Final Report [id number] Location: [facility] The signing pathologist has (i) examined the relevant preparation(s) for the specimen(s) and (ii) rendered or confirmed the diagnosis(es). . Project Assistant Final DIAGNOSIS Normal Negative for intraepithelial lesion or malignancy (NILM). For consensus guidelines for the management of cervical cancer screening test results, please see: http://www.asccp. org . Electronically signed by: Ravindra RYAN(ASCP)Asuncion Verified: 02/10/2021 15:07 Embroidery Patternmaker Performed at: -[facility] Dept. of Pathology, [place], [place] HPV RESULTS HPV16 (Result) Negative HPV18 (Result) Negative HPVOHR (Result) Negative HPV (Interpretation) See Below HPV (Interpretation) Text: NEGATIVE for high-risk HPV *. *Testing negative for high risk HPV means that the specimen is negative for the following 14 types tested: types 16, 18, 31, 33, 35, 39, 45, 51, 52, 56, 58, 59, 66, and 68. The test is not intended to detect low risk HPV types. Maddie amado HPV test Specimen: HPV Testing - Cytology Liquid Based Prep The Maddie amado HPV test was validated, performed and results reported through the [facility] ([facility]) at [facility]. - Jose Carlos Bain, PhD, [facility], Director-[facility] STATEMENT OF ADEQUACY Specimen submitted is satisfactory for evaluation. No endocervical component present. Note: Initial cross-sectional studies suggested that STAR cells were more commonly identified when an endocervical component was present, however subsequent longitudinal studies fail to show that women lacking an endocervical component in a Pap smear are at increased risk for STAR. CLINICAL INFORMATION HPV Option: Concurrent HPV and Pap CT/NG Option: No Preparation: Liquid based Pap Specimen Source: Cervical/Endocerv ical LMP: 01/12/21 Hysterectomy: No : No : No I.U.D.: No Pelvic Radiation: No Hist Abnl Pap/Biopsy: Yes, history of previous abnormal Pap Prior GASOLINE FINISHER Therapy: No Hist of HPV Vaccine: No ICD Diagnosis: Z12.4 Encounter for screening for malignant neoplasm of cervix . CLINICAL INFORMATION Clinical Data, Significant Therapy and Clinical Impression : _ This Pap Test has been evaluated with the assistance of the ThinPrep Pap Test Imaging System. Note: The Pap test is a screening test for cervical cancer with an inherent false-negative rate dependent upon several variables. For further information please contact the [facility] Laboratory. Reference: Ruma MATT. Medical Record Librarian of Pap Smear Results. In: Cely BS, Conrad HH, ed. The Pap Smear. [facility] [place]: Jayson, 2002: 71-77. [facility] 01/26/2021 11:1 8 AM EST us Cnadace Garcia APRN PATHOLOGY/CYTOLOGY ORDERAB LES Final Result [facility] [place] [address] from Last 3 Months or Most Recently Relevant to Health Maintenance Insurance [place] [employer] Advance Directives Documents on File Type Date Recorded Patient Nutrition Helper Expl anation Personal Nutrition Helper 12/03/2019 8:36 AM * Attempt Cardiopulmonary Resuscitation - Inpatient (Latest Code Status on File) Date Activated Date Inactivated Comments 11/28/2022 6:38 PM 11/29/2022 2:31 PM Question Answer Comments Code Status decision made by: Patient * Attempt Cardiopulmonary Resuscitation - Inpatient Date Activated Date Inactivated Comments 11/28/2022 5:48 PM 11/28/2022 6:38 PM Question Answer Comments Code Status decision made by: Patient * Partial Code. Date Activated Date Inactivated Comments 09/14/2019 10:20 AM 09/14/2019 7:12 PM Question Answer Comments Does patient have capacity to make decision: Yes Code Limitations: Do not intubate * Full Code Date Activated Date Inactivated Comments 04/21/2019 4:12 AM 04/22/2019 1:38 PM Question Answer Comments Does patient have capacity to make decision: Yes * Full Code Date Activated Date Inactivated Comments 04/21/2019 12:54 AM 04/21/2019 4:12 AM Question Answer Comments Does patient have capacity to make decision: Yes Care Teams Finding Fastener Relationship Specialty Start Date End Date Grant Ac MD [address] [place] [id number] PCP - General Family Medicine 07/02/17
--- OUTSIDE RECORDS SUMMARY | 2024-11-30 15:24 | XMS_ITS | Encounter Summary ---
Author Organization [facility] Address One [facility] [place] [address] Care Team Providers Care Hospital Supervisor Name Role Phone Grant Ac MD Primary Care Provider +1- [phone] Reason for Visit * Reason Comments Medication Refill Encounter Details Date Type Department Care Team ([facility] Contact Info) Description 08/27/2023 Refill Otolaryngology at [address] [phone] Ninfa Julian PA [address] [place] [address] [phone] Nasal obstruction; Chronic allergic rhinitis Social History [...] place to sleep or slept in a longterm (including now)? No 04/12/2022 DH IPV Inpatient Questions Answer Date Recorded Does Anyone Try to Keep You From Having Contact with Others or Doing Things Outside Your Home? no 05/04/2023 Feels Threatened by Someone no 04/18 Feels Unsafe at Home or Work/School no 05/04/2023 Physical Signs of Abuse Present no 05/04/2023 Comments No Sex and Gender Information Value Date Recorded Sex Assigned at Not on file Legal Sex Female 2:32 PM EDT Gender Identity Not on file Sexual Orientation Not on file documented as of this encounter Plan of Treatment Upcoming Encounters Date Type Department Care Team (Late st Contact Info) Description 02/01/2025 3:30 PM EST Office Visit Ophthalmology at [address] [phone] Umair Chavez MD [address] [place] [address] [place] [address] documented as of this encounter Visit Diagnoses Diagnosis Nasal obstruction Other diseases of nasal cavity and sinuses Chronic allergic rhinitis Allergic rhinitis, cause unspecified documented in this encounter Additional Health Concerns Infection Onset Date Last Indicated Resolved Time Rule Out COVID-19 03/14/2024 03/14/2024 03/15/2024 12:01 AM EST documented as of this encounter Care Teams Hospital Supervisor Relationship Specialty Start Date End Date Grant Ac MD [address] [place] [address] PCP - General Family Medicine 07/02/17 documented as of this encounter
--- OUTSIDE RECORDS SUMMARY | 2024-11-30 15:24 | XMS_ITS | Encounter Summary ---
Author Organization [facility] Address One [facility] [place] [address] Care Team Providers Care Fur Grader Name Role Phone Grant Ac MD Primary Care Provider +1- [phone] Reason for Visit * Reason Onset Date Comments Medication Refill 11/27/2024 Encounter Details Date Type Department Care Team ([facility] st Contact Info) Description 11/27/2024 Refill Primary Care at [address] [place] [phone] Grant Ac MD [address] [place] [address] [phone] Other chronic pain; Recurrent low back pain Social History Tobacco Use Types Packs/Day Years [...] place to sleep or slept in a long-term (including now)? No 04/12/2022 DH IPV Inpatient [...] encounter Miscellaneous Notes * Telephone Encounter - Marcelle Lockhart LPN - 11/30/2024 8:10 AM EDT Controlled substance Refill Request Requested Prescriptions Pending Prescriptions Disp Refills traMADoL (Ultram) 50 mg tablet 112 tablet 0 Sig: Take 2 tablets by mouth every 6 hours as needed for Pain. Must last 14 days Date of last controlled substance refill: 11/20/24 CSA on file yes. CSA Mailed: Opioid Date: 08/31/24 Is medication due: 12/04/24 11/27/2024 11/16/2024 06/01/2024 05/18/2024 12/04/2023 09/20/2023 09/05/2023 Opioid PDMP [place] PDMP Query Date 11/30/2024 11/16/2024 06/04/2024 05/18/2024 12/04/2023 09/21/2023 09/07/2023 [place] PDMP Query Date 06/04/2024 12/04/2023 [place] PDMP Query Date 06/04/2024 12/04/2023 Last Urine Drug Screen: 11/04/2023 Urine Consistent: yes PDMP Consistent: yes Office visit within 6 months: 10/16/24 Next ROV: Visit date not found Comments: Please sign if appropriate documented in this encounter Plan of Treatment Upcoming Encounters Date Type Department Care Team ([facility] st Contact Info) Description 02/01/2025 3:30 PM EST Office Visit Ophthalmology at [address] [phone] Umair Chavez MD [address] [place] [address] [place] [address] documented as of this encounter Visit Diagnoses Diagnosis Other chronic pain Recurrent low back pain Lumbago documented in this encounter Care Teams Fur Grader Relationship Specialty Start Date End Date Grant Ac MD [address] [place] [id number] PCP - General Family Medicine 07/02/17 documented as of this encounter
--- OUTSIDE RECORDS SUMMARY | 2024-11-30 15:24 | XMS_ITS | Encounter Summary ---
Author Organization [facility] Address One [facility] [place] [address] Care Team Providers Care Garment Cutter Name Role Phone Grant Ac MD Primary Care Provider +1- [phone] Reason for Visit * Reason Comments Medication Refill Encounter Details Date Type Department Care Team ([facility] Contact Info) Description 12/22/2022 Refill Primary Care at [address] [place] [phone] Grant Ac MD [address] [place] [address] [phone] Acute non-recurrent frontal sinusitis Social History Tobacco Use Types Packs/Day Years [...] place to sleep or slept in a [place] facility (including now)? No 04/12/2022 Comments No Sex and Gender Information Value Date Recorded Sex Assigned at Not on file Legal Sex Female 2:32 PM EDT Gender Identity Not on file Sexual Orientation Not on file documented as of this encounter Plan of Treatment Upcoming Encounters Date Type Department Care Team (Late st Contact Info) Description 02/01/2025 3:30 PM EST Office Visit Ophthalmology at [address] [phone] Umair Chavez MD [address] [place] [address] [place] [address] documented as of this encounter Visit Diagnoses Diagnosis Acute non-recurrent frontal sinusitis documented in this encounter Additional Health Concerns Infection Onset Date Last Indicated Resolved Time Rule Out COVID-19 03/14/2024 03/14/2024 03/15/2024 12:01 AM EST documented as of this encounter Care Teams Garment Cutter Relationship Specialty Start Date End Date Grant Ac MD [address] [place] [address] [place] [address] PCP - General Family Medicine 07/02/17 documented as of this encounter
--- OUTSIDE RECORDS SUMMARY | 2024-11-30 15:24 | XMS_ITS | Encounter Summary ---
Author Organization [facility] Address One [facility] [place] [address] Care Team Providers Care Community Development Technician Name Role Phone Grant Ac MD Primary Care Provider +1- [phone] Reason for Visit * Reason Comments Medication Refill Encounter Details Date Type Department Care Team ([facility] Contact Info) Description 06/04/2023 Refill Otolaryngology at [address] [phone] Ninfa Julian PA [address] [place] [address] [phone] Nasal obstruction; Chronic allergic rhinitis Social History [...] place to sleep or slept in a care home (including now)? No 04/12/2022 DH IPV Inpatient [...] 3:30 PM EST Office Visit Ophthalmology at [address] [phone] Umair Chavez MD [address] [place] [address] [place] [address] documented as of this encounter Visit Diagnoses Diagnosis Nasal obstruction Other diseases of nasal cavity and sinuses Chronic allergic rhinitis Allergic rhinitis, cause unspecified documented in this encounter Additional Health Concerns Infection Onset Date Last Indicated Resolved Time Rule Out COVID-19 03/14/2024 03/14/2024 03/15/2024 12:01 AM EST documented as of this encounter Care Teams Community Development Technician Relationship Specialty Start Date End Date Grant Ac MD [address] [place] [address] PCP - General Family Medicine 07/02/17 documented as of this encounter
--- OUTSIDE RECORDS SUMMARY | 2024-11-30 15:24 | XMS_ITS | Encounter Summary ---
Author Organization [facility] Address One [facility] [place] [address] Care Team Providers Care Social And Human Services Assistant Name Role Phone Grant Ac MD Primary Care Provider +1- [phone] Encounter Details Date Type Department Care Team (Late st Contact Info) Description 10/05/2024 Telephone Primary Care at [place] [address] [facility] [place] [phone] Gali Carlson, RN Social History Tobacco Use Types Packs/Day Years [...] place to sleep or slept in a penitentiary (including now)? No 04/12/2022 DH IPV Inpatient [...] encounter Miscellaneous Notes * Telephone Encounter - Gali Carlson RN - 10/05/2024 11:19 AM EDT Patient due for a 6 month chronic pain visit - please not to renew contract at visit - thanks documented in this encounter Plan of Treatment Upcoming Encounters Date Type Department Care Team (Late st Contact Info) Description 02/01/2025 3:30 PM EST Office Visit Ophthalmology at [address] [phone] Umair Chavez MD [address] [place] [address] [place] [address] documented as of this encounter Visit Diagnoses Not on filedocumented in this encounter Care Teams Social And Human Services Assistant Relationship Specialty Start Date End Date Grant Ac MD [address] [facility] [place] [address] PCP - General Family Medicine 07/02/17 documented as of this encounter
--- OUTSIDE RECORDS SUMMARY | 2024-11-30 15:24 | XMS_ITS | Encounter Summary ---
Author Organization [facility] [place] [address] Care Team Providers Care Casting Room Helper Name Role Phone Grant Ac MD Primary Care Provider +1- [phone] Reason for Visit * Reason Onset Date Comments Medication Refill 01/03/2021 Encounter Details Date Type Department Care Team (Late Contact Info) Description 01/03/2021 Refill Primary Care at [address] [phone] Grant Ac MD [address] [place] [address] Low back pain Social History Tobacco Use Types Packs/Day Years Used Date Smoking Tobacco: Every Day Cigarettes Smokeless Tobacco: Never Comments:once in a while. No t every day anymore for about 6 weeks Alcohol Use Standard Drinks/Week Comments Never 1 [...] 3:30 PM EST Office Visit Ophthalmology at [address] [phone] Umair Chavez MD [address] [place] [address] [place] [address] documented as of this encounter Visit Diagnoses Diagnosis Low back pain Lumbago documented in this encounter Additional Health Concerns Infection Onset Date Last Indicated Resolved Time Rule Out Respiratory 08/16/2021 08/16/2021 022 1:13 AM EDT Rule Out COVID-19 08/16/2021 08/16/2021 08/17/2021 1:13 AM EDT Rule Out COVID-19 03/14/2024 03/14/2024 03/15/2024 12:01 AM EST documented as of this encounter Care Teams Casting Room Helper Relationship Specialty Start Date End Date Grant Ac MD [address] [place] [address] PCP - General Family Medicine 07/02/17 documented as of this encounter
--- OUTSIDE RECORDS SUMMARY | 2024-11-30 15:24 | XMS_ITS | Encounter Summary ---
Author Organization [facility] Address One [facility] [place] [address] Care Team Providers Care Banquet Food Server Name Role Phone Grant Ac MD Primary Care Provider +1- [phone] Reason for Visit * Reason Comments Medication Refill Encounter Details Date Type Department Care Team ([facility] Contact Info) Description 04/09/2023 Refill Otolaryngology at [address] [phone] Ninfa Julian PA [address] [place] [address] [phone] Nasal obstruction; Chronic allergic rhinitis Social History [...] in a penitentiary (including now)? No 04/12/2022 Comments No Sex and Gender Information Value Date Recorded Sex Assigned at Not on file Legal Sex Female 2:32 PM EDT Gender Identity Not on file Sexual Orientation Not on file documented as of this encounter Miscellaneous Notes * Telephone Encounter - Ninfa Julian PA - 04/10/2023 11:04 AM EST Since patient has not followed up with the ENT clinic moving forward this is certainly something that PCP can handle. In the interim, I sent in the prescription with 1 refill. * Telephone Encounter - Drea Moulton LPN - 04/10/2023 9:21 AM EST Prescription Renewal Request Name: Purvi Piotrjocelyn : 1985 Prescription(s) Requested: Requested Prescriptions Pending Prescriptions Disp Refills cetirizine (ZyrTEC) 10 mg tablet [Pharmacy Med Name: CETIRIZINE HCL 10 MG TABLET] 30 tablet 5 Sig: TAKE 1 TABLET BY MOUTH EVERY DAY Date of Encounter last in This Dept (If need an appointment send to secretaries to schedule): Next Encounter in This Dept: Visit date not found Date of Last Refill (for each medication): 2022 Medication category requirements (labs etc): n/a Status of request: Pended Allergies Allergen Reactions Lisinopril Other (See Comments) Cough Drea Moulton LPN 04/10/23 9:21 AM documented in this encounter Plan of Treatment Upcoming Encounters Date Type Department Care Team (Late st Contact Info) Description 02/01/2025 3:30 PM EST Office Visit Ophthalmology at [address] [phone] Umair Chavez MD [address] [place] [address] [place] [address] documented as of this encounter Visit Diagnoses Diagnosis Nasal obstruction Other diseases of nasal cavity and sinuses Chronic allergic rhinitis Allergic rhinitis, cause unspecified documented in this encounter Additional Health Concerns Infection Onset Date Last Indicated Resolved Time Rule Out COVID-19 03/14/2024 03/14/2024 03/15/2024 12:01 AM EST documented as of this encounter Care Teams Banquet Food Server Relationship Specialty Start Date End Date Grant Ac MD [address] [place] [address] PCP - General Family Medicine 07/02/17 documented as of this encounter
[2024-11-30 17:40] LABS: MANUAL DIFF FLAG NO
[2024-11-30 17:50] LABS: Hematocrit 39.5 % (37.0-47.0); Hemoglobin 11.9 g/dl (12.0-16.0); Imm Gran Abs Auto 0.05 X10*3/uL (0.00-0.03); Imm Gran Pct Auto 0.4 % (0.0-0.4); Lymphocytes Absolute Auto 3.8 X10*3/uL (1.2-4.9); Mean Corpuscular HGB Conc 30.1 g/dl (31.0-35.0); Mean Corpuscular Hemoglobin 23.8 pg (27.0-33.0); Mean Corpuscular Volume 79.0 fL (80.0-98.0); NRBC Abs Auto 0.000 X10*3/uL (0.0-0.012); NRBC Pct Auto 0.0 /100WBC (0.0-0.2); Platelet Count 344 X10*3/uL (160-400); Red Blood Count 5.00 X10*6/uL (4.20-5.50); White Blood Count 12.5 X10*3/uL (4.8-10.8)
[2024-11-30 17:51] LABS: Appearance Urine Cloudy; Glucose Urine UA Negative (Negative); PH 5.5 (5.0-9.0); Specific Gravity - Urine 1.020 (1.005-1.025)
[2024-11-30 18:06] LABS: Cannabinoid Screen Urine Not Detected (Not Detect)
[2024-11-30 18:08] LABS: Alanine Aminotransferase 28 U/L (0-31); Albumin Level 4.7 g/dL (3.5-5.0); Alkaline Phosphatase 111 U/L (39-117); Anion Gap 12 (12-20); Aspartate Amino Transferase 36 U/L (5-31); Blood Urea Nitrogen 7 mg/dL (9-16); Calcium 9.6 mg/dL (8.4-10.2); Carbon Dioxide 26 mmol/L (22-29); Chloride 108 mmol/L (96-108); Cholesterol 208 mg/dL (<200); Estimated Glomerular Filt Rate > 60; HDL Cholesterol 49 mg/dL (>40); Potassium 4.8 mmol/L (3.3-5.1); Sodium 141 mmol/L (135-145); Total Protein 7.8 g/dL (6.5-8.0); Triglycerides 130 mg/dL (<150)
[2024-11-30 18:28] LABS: Microalbum/Creatinine Ratio Ur 9.2 ug/mg cr (<30)
[2024-12-01 07:25] LABS: Hemoglobin A1C 109.4421 umol/L
[2024-12-01 08:47] LABS: HBS Num1 0.17 mIU/mL (0-7.99); HBsAGNum1 0.48 S/CO (0.00-0.99); HIV Num 1 0.04 S/CO (0.00-0.99); Hepatitis B Surface Antigen Negative (Negative); ~HepC Num1 0.06 S/CO (0.00-0.79); ~Hepatitis B Surface Antibody NONREACTIVE (Nonreactive); ~Hepatitis C Antibody Nonreactive (Nonreactive)
[2024-12-01 09:04] LABS: Syphilis Screen Nonreactive (Nonreactive)
[2024-12-01 10:46] LABS: CT PCR Urine NOT DETECTED (Not Detect.); NG PCR Urine NOT DETECTED (Not Detect.)
[2024-12-07 15:59] LABS: VITAMIN D (1,25 OH) D3 40 pg/mL; Vit D (1,25-Dihydroxy) Total 40 pg/mL (18-72); Vitamin D (1,25 OH) D2 <8 pg/mL
[2024-12-08 13:24] LABS: Chlamydia Pneumoniae Interp. Past Infection; Chlamydia Trachomatis IgA <1:16 titer (<1:16)
== END 2024-11-30 10:14 | disposition home or self-care (01) ==
LOC: HO.HKASLDS 10:13
PROVIDERS: Visit Provider Student in an Organized Health Care Education/Training Program
DX: Z76.89 Persons encountering health services in other specified circumstances (principal); Z01.89 Encounter for other specified special examinations; Z71.9 Counseling, unspecified; Z13.31 Encounter for screening for depression; Z13.9 Encounter for screening, unspecified; Z13.1 Encounter for screening for diabetes mellitus; Z13.220 Encounter for screening for lipoid disorders; Z11.4 Encounter for screening for human immunodeficiency virus [HIV]; F43.21 Adjustment disorder with depressed mood; G83.4 Cauda equina syndrome; M54.50 Low back pain, unspecified; G89.29 Other chronic pain; R79.89 Other specified abnormal findings of blood chemistry; R74.8 Abnormal levels of other serum enzymes; I10 Essential (primary) hypertension; F17.210 Nicotine dependence, cigarettes, uncomplicated; Z79.899 Other long term (current) drug therapy; Z98.890 Other specified postprocedural states
CPT/HCPCS: 80053; 80061; 80307; 81003; 82043; 82570; 82652; 83036; 85025; 86631; 86632; 86706; 86780; 86803; 87340; 87389; 87491; 87591; 96127; 99202

== ENCOUNTER 2024-12-07 09:38 | Outpatient (AMB) | payer OTHER, SELFPAY ==
--- NOTE | 2024-12-07 09:39 | A.OFFPC_ITS ---
Vital Signs 12/07/24 09:40 Height 5 ft 2.6 in Weight 200 lb BMI 35.9 BP 132/78 Blood Pressure Location Lt brachial Position Sitting Respiration 16 Pulse 95 Pulse Source Pulse Oximeter Temp 97.8 F Temp Source Oral Pulse Oximetry (%) 97 Oxygen Delivery Method Room Air Intake Visit Reasons: 1 week follow up Intake Note: establish pcp and back pain lower back pain. Fire Hose Curer Required: No Accompanied by: Self / Same As Patient Allergies No Known Allergies Allergy (Verified 12/07/24 09:43) Tobacco use date assessed: 11/30/24 Dental Screening Dental Screen Date: 11/30/24 Did you have a dental visit in the last 12 months?: No Did you have a dental problem in the last 6 months where you did not have access to dental care?: No Was dental information given to patient?: No HPI HPI Comments History of Present Illness Details History of Present Illness The patient is a 39-year-old female presenting with evaluation of blood test results and management of symptoms including dizziness and fatigue. Leukocytosis: - The patient had a white blood cell cou nt of 12.5, above the normal cutoff of 10, possibly due to a viral infection experienced over the past 2 weeks Iron deficiency anemia: - The patient has low hemoglobin and MCV , indicating iron deficiency anemia, with symptoms of dizziness, hair loss, and palpitations. - Menstrual cycles have become more freq uent, occurring sometimes less than two weeks apart, contributing to the anemia. Elevated AST: - The patient's AST level is slightly el evated at 36, with a normal cutoff of 31, possibly related to fatty liver due to high cholesterol levels. Hypercholesterolemia: - The patient's total cholesterol is 208 mg/dL, and LDL cholesterol is 133 mg/dL, both above the recommended levels. - There is a family history of hyperchol esterolemia, with a brother on medication since a young age. Fatty liver: - The elevated AST and cholesterol level s suggest a diagnosis of fatty liver, with dietary modifications recommended to manage the condition. Review of Systems - General: Reports dizziness and fatigue . - Cardiovascular: Reports palpitations. - Dermatological: Reports hair loss. - Neurological: Reports dizziness, espec ially when standing up. - Gastrointestinal: Denies nausea or vom iting. 10-point ROS reviewed and negative excep t as noted in HPI Past Medical History - No history of ASCVD or diabetes. - Family history of hypercholesterolemia . Health Maintenance - Discussed dietary modifications to man age cholesterol levels, including r educing cheese and egg intake. - Discussed the importance of avoiding s moking to manage cholesterol levels. - Hepatitis B vaccination series discuss ed for future administration. Physical Exam General: Well-appearing, in no acute distress. Vital signs: Blood pressure 132/70. HEENT: Normocephalic, atraumatic. PERRLA, EOMI. Conjunctiva clear, sclera anicteric. Oropharynx clear, mucous membranes moist. TMs intact bilaterally. Neck: Supple, no lymphadenopathy, no thyromegaly, no JVD or carotid bruits. Cardiovascular: RRR, normal S1/S2, no murmurs, rubs, or gallops. Peripheral pulses 2+ and symmetric. No edema. Respiratory: Lungs clear to auscultation bilaterally, no wheezes, rales, or rhonchi. Normal effort. Abdomen: Soft, non-tender, non-distended. Normoactive bowel sounds. No hepatosplenomegaly, no masses. MSK: Full range of motion, no joint swelling or deformity. Normal gait. Skin: Warm, dry, intact. No rashes, lesions, or pallor. Neuro: Alert and oriented x3. Cranial nerves II-XII intact. Strength 5/5 throughout. Sensation intact. Reflexes 2+ symmetric. Normal coordination and gait. Psych: Appropriate mood and affect. Normal judgment and insight. Plan 1. Leukocytosis - Monitor white blood cell count and ass ess for any ongoing or new infections. 2. Iron Deficiency Anemia - Prescribe iron supplements to be taken with vitamin C to enhance absorption. - Advise on dietary intake of iron-rich foods and monitor for constipation as a side effect. 3. Elevated Ast - Monitor liver function tests and recom mend dietary changes to manage fatty liver. 4. Hypercholesterolemia - Recommend dietary modifications to red uce cholesterol levels and re-evaluate in three to six months. ASCVD (Atherosclerotic Cardiovascular Disease) Risk Algorithm including Known ASCVD from AHA/ACC from [email or web address] on 12/07/2024 RESULT SUMMARY: 0.8-0.7 % Risk of cardiovascular event (coronary or stroke or non-fatal VT or stroke) in next 10 years. No statin recommended because age <40; always encourage healthy cardiovascular lifestyle choices. Some patients with other high risk features may still be appropriate for treatment. 5. Fatty Liver - Recommend lifestyle changes, including diet modifications, to manage fatty liver. Discussion Notes I discussed with the patient the presence of leukocytosis, likely due to a recent viral infection, and the need to monitor it. We addressed her iron deficiency anemia, recommending iron supplements with vitamin C for better absorption and dietary changes to increase iron intake. I explained the slightly elevated AST level, likely due to fatty liver, and advised dietary modifications to manage cholesterol levels. We discussed the absence of an immediate need for statin therapy, given her age and cholesterol levels, and planned to re-evaluate in three to six months. I also mentioned the pending vitamin D levels and the good status of her urine test. We talked about the importance of lifestyle changes, including diet and avoiding smoking, to manage her cholesterol and liver health. Lastly, we discussed the future administration of the hepatitis B vaccine series. Patient Instructions - Take iron supplements with vitamin C d aily to improve absorption. - Eat iron-rich foods and be aware of po tential constipation from iron supplements. - Reduce intake of high-cholesterol food s like cheese and eggs. - Avoid smoking to help manage cholester ol levels. - Plan for a follow-up in [facility] reass[facility] levels. - Consider hepatitis B vaccination serie s when available. 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 1. Little interest or pleasure in doing things: several days 2. Feeling down, depressed, or hopeless: not at all 3. Trouble falling or staying asleep, or sleeping too much: more than half the days 4. Feeling tired or having little energy: nearly every day 5. Poor appetite or overeating: not at all 6. Feeling bad about yourself - or that you are a failure or have let yourself or your family down: not at all 7. Trouble concentrating on things, such as reading the newspaper or watching television: not at all 8. Moving or speaking so slowly that other people could have noticed. Or the opposite - being so fidgety or restless that you have been moving around a lot more than usual: not at all 9. Thoughts that you would be better off or of hurting yourself in some way: not at all Total score: 6 Depression Screening Interpretation: Positive Depression Screening Done: Yes [id number] - PHQ-9 Billing: Yes Source: Developed by Drs. Phu Sanders, Darcy Langley, Jasson Ricardo and colleagues, with an educational letha from [employer]. Thrive Questionnaire Date Thrive assessed: 11/30/24 I am a: Patient What is your living situation today?: I have a steady place to live Within the past 12 months, did the food you bought not last and you didn't have the money to get more?: Never true Within the past 12 months, did you worry whether your food would run out before you got money to buy more?: Never true Do you have trouble paying for medicines?: No Do you have trouble getting transportation to medical appointments?: No Do you have trouble paying your heating and electricity bill?: No Do you have trouble taking care of your child, family member or friend?: No Do you have trouble with day-to-day activities such as bathing, preparing meals, shopping, managing finances, etc.?: No Are you currently unemployed and looking for a job?: No Are you interested in more education?: No Please select the resources that you would like help with: None Currently or been in a relationship where the following occur: I choose not to answer THRIVE Score: 0 AUDIT C Alcohol Use Questionnaire (AUDIT-C) 1. How often do you have a drink containing alcohol?: Never 3. How often do you have six or more drinks on one occasion?: Never Total Score: 0 EUGENIO-7 AMB Questionnaire EUGENIO-7 Date EUGENIO - 7 assessed: 11/30/24 Feeling nervous, anxious, or on edge: 0 = Not at all Not being able to stop or control worryin = Not at all Worrying too much about different things: 0 = Not at all Trouble relaxin = Not at all Being so restless that it is hard to sit still: 0 = Not at all Becoming easily annoyed or irritable: 0 = Not at all Feeling afraid as if something awful might happen: 0 = Not at all Total EUGENIO-7 score (0-4 normal; 5-9 mild; 10-14 moderate; 15-21 severe): 0 Source: Developed by Drs. Phu Sanders, Darcy Langley, Jasson Ricardo and colleagues, with an educational letha from [employer]. Physical exam (Primary Care) Vital Signs: Last Vital Signs Temp 97.8 F 12/07/24 09:40 Pulse 95 12/07/24 09:40 Resp 16 12/07/24 09:40 BP 132/78 12/07/24 09:40 Pulse Ox 97 12/07/24 09:40 Oxygen Delivery Method Room Air 12/07/24 09:40 BMI result Body Mass Index 35.9 Tobacco/Smoking Status: Tobacco use Status Tobacco use date assessed 11/30/24 12/07/24 09:44 Patient Tobacco Use Status Current everyday Tobacco 12/07/24 09:44 Tobacco use type Cigarette 12/07/24 09:44 PHQ-9: PHQ-9 Score PHQ-9: Total score 6 12/07/24 09:44 Depression Screening Interpretation: Positive Thrive Assessment: Date of Thrive Assessment Date Thrive assessed 11/30/24 12/07/24 09:44 Currently or been in a relationship where the following occur: I choose not to answer Coding Level of Care Code Est Pt Level 3 (11756) Diagnoses Encounter to discuss test results Z71.2 Leukocytosis D72.829 Iron deficiency anemia D50.9 Elevated AST (SGOT) R74.01 Hypercholesterolemia E78.00 Fatty liver K76.0 Additional Codes PHQ-9 - 03623 - PHQ-9 Billing: Yes ([id number]) Assessment & Plan Assessment & Plan (1) Encounter to discuss test results: Code(s): Z71.2 - Person consulting for explanation of examination or test findings (2) Leukocytosis: Code(s): D72.829 - Elevated white blood cell count, unspecified (3) Iron deficiency anemia: Code(s): D50.9 - Iron deficiency anemia, unspecified (4) Elevated AST (SGOT): Code(s): R74.01 - Elevation of levels of liver transaminase levels (5) Hypercholesterolemia: Code(s): E78.00 - Pure hypercholesterolemia, unspecified (6) Fatty liver: Code(s): K76.0 - Fatty (change of) liver, not elsewhere classified Plan
[2024-12-07 09:40] VITALS: BP 132/78; PULSE 95; RESP 16; TEMP 36.6; O2SAT 97; BMI 35.9
== END 2024-12-07 09:59 | disposition home or self-care (01) ==
LOC: HO.HMCFMS 09:38
PROVIDERS: PCP Student in an Organized Health Care Education/Training Program; Visit Provider Student in an Organized Health Care Education/Training Program
DX: D50.9 Iron deficiency anemia, unspecified (principal); D72.829 Elevated white blood cell count, unspecified; R74.01 Elevation of levels of liver transaminase levels; E78.00 Pure hypercholesterolemia, unspecified; K76.0 Fatty (change of) liver, not elsewhere classified; Z71.2 Person consulting for explanation of examination or test findings

== ENCOUNTER → 2024-12-07 09:38 | Outpatient (BNVA) | payer OTHER, SELFPAY | PROVIDERS: PCP Student in an Organized Health Care Education/Training Program; Visit Provider Student in an Organized Health Care Education/Training Program | DX: Z71.2 Person consulting for explanation of examination or test findings (principal); D72.829 Elevated white blood cell count, unspecified; D50.9 Iron deficiency anemia, unspecified; R74.01 Elevation of levels of liver transaminase levels; E78.00 Pure hypercholesterolemia, unspecified; K76.0 Fatty (change of) liver, not elsewhere classified; Z13.31 Encounter for screening for depression | CPT/HCPCS: 96127; 99212 ==

== ENCOUNTER 2024-12-14 11:52 | Emergency (ER) | payer OTHER, SELFPAY ==
--- NOTE | ~2024-12-14 | MR_ITS ---
CLINICAL HISTORY: low back pain worsening bilateral leg numbness --- Additional Notes or Special Instructions: hx of L3-L4 fusion , h/o cauda equina MR lumbar spine without gadolinium Comparison: None Findings: Evidence of postsurgical changes with multiple foci susceptibility artifact and linear midline scar tissue, likely related to posterior decompression at L4-L5 with bilateral laminectomies. There is prominent marrow edema of the adjoining endplates of the L4-L5 with trace retrolisthesis, presumably degenerative related, type 1 Modic endplate changes. Disc desiccation and height loss noted at L5-S1. No acute fracture or pathologic bone lesion. Multilevel facet arthropathy. Small left subarticular disc protrusion at L1-L2 No high-grade spinal canal narrowing or foraminal stenoses. Mild disc bulge at L2-L3, with mild spinal canal narrowing and mild left foraminal stenoses. Mild disc bulge at L3-L4, with mild spinal canal narrowing and mild left foraminal stenoses. [id number] left and mild right bilateral foraminal stenoses at L4-L5. No high-grade spinal canal narrowing. Prominent ventral epidural lipomatosis at L5-S1, with varying degrees of spinal canal narrowing, most severe noted on series 9, image 42. Moderate to severe bilateral foraminal stenoses. Paraspinous musculature intact. IMPRESSION: 1. Evidence of prior posterior decompression at L4-L5. 2. Multifactorial multilevel disc bulges with varying degrees of spinal canal narrowing/foraminal stenoses, severe at L5-S1. This document has been electronically signed by: Omkar Feliz MD on 12/14/2024 19:45:08
[2024-12-14 12:06] VITALS: BP 122/78; PULSE 103; RESP 16; TEMP 36.2; O2SAT 99; BMI 35.2
--- NOTE | 2024-12-14 12:08 | ED_ITS ---
HPI - General Adult General Chief complaint: Back Pain/Injury Stated complaint: back/neck pain Time Seen by Provider: 12/14/24 13:08 Source: patient, family, old records reviewed and other Mode of arrival: ambulatory Limitations: no limitations History of Present Illness ED Provider: HAIM ACE narrative: 39 yo female with PMH of fusion of L3-L4 not on blood thinners who was working the [employer] this week with lifting and leaning over. Now she has pain in low back intermittent tingling in upper thighs when she remains in one position but no saddle anesthesia or b/b incontinence. She is not on thinners and no IVDA. She reports hx of cauda equina in the past. She also notes her neck is sore and her R side trapezius has burning in it but no UE weakness. She has been taking tramadol but no relief. She saw Grant Matos today from neuro spine he referred her for non emergent MRI for her symptoms. She came to ED stating she needed MRI per her spine doctor but I discussed with her that this was not indicated and Carlo CORDOBA recommended outpatient MRI to her at the visit. complaint: low back pain Onset (ago): day(s) (2) Location: neck and back Radiation: extremity Severity: severe Quality: stabbing, aching and constant Pain Consistency: constant Relieving factors: immobilization Exacerbating factors: movement Associated symptoms: denies other symptoms Treatments prior to arrival: none Related Data Home Medications ?Medication ?Instructions ?Recorded ?Confirmed losartan 25 mg tablet 25 mg PO DAILY 11/30/2411/16 omeprazole 20 mg capsule,delayed 20 mg PO DAILY 11/30/24 release Previous Rx's ?Medication ?Instructions ?Recorded ascorbic acid (vitamin C) 500 mg 500 mg PO DAILY #90 t abs 12/11/24 tablet ferrous sulfate 325 mg (65 mg 325 mg PO DAILY #90 tabs 12/11/24 iron) tablet (iron) tramadol 50 mg tablet 100 mg (2 x 50 mg) PO Q6H HI N pain 12/11/24 #30 tabs cyclobenzaprine 10 mg tablet 10 mg PO TID PRN muscle s pasm #20 12/14/24 tabs hydrocodone 5 mg-acetaminophen 325 1 tab PO Q6H PRN pa in #14 tabs 12/14/24 mg tablet ibuprofen 600 mg tablet 600 mg PO Q6H PRN pain #30 t abs 12/14/24 lidocaine 5 % topical patch 1 patch topical DAILY #30 ea 12/14/24 prednisone 20 mg tablet 40 mg (2 x 20 mg) PO DAILY 4 days 12/14/24 #8 tabs Allergies Allergy/AdvReac Type Severity Reaction Status Date / Time No Known Allergies Allergy Verified 12/14/24 12:08 Review of Systems Review of Systems: Constitutional : No Weight loss, No Fever, No Chills, ENT/Mouth : No Hearing loss, No Ear Pain, No Nasal Congestion, No Sinus Pain, No Hoarseness, No sore throat, No Rhinorrhea, No Swallowing Difficulty Cardiovascular : No Chest Pain, No SOB Respiratory : No Cough, No Dyspnea Gastrointestinal : No Nausea, No Vomiting, No Diarrhea, No abdominal Pain, No Hematochezia, No Melena Genitourinary : No Dysuria, No Urinary Frequency, No Hematuria, No Urinary Incontinence, Musculoskeletal : positive back pain Skin : No Skin Lesions, No rash Neuro : No Weakness, pos Numbness, No Paresthesias, no loss of bowel or bladder incontinence, no saddle anesthesia Yes all other systems are reviewed and are negative [facility] Past Medical History Attestation statement: The following information was validated with the patient. 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 (walker) Hearing needs: No Vision needs: No Physical Exam ED Vital Signs: Vital Signs - 24 hr 12/14/24 12:06 12/14/24 15:28 12/14/24 16:44 Temperature 97.1 F 97.8 F Pulse Rate 103 H 84 67 Respiratory Rate 16 18 Blood Pressure 122/78 128/70 115/88 Pulse Oximetry 99 100 100 Oxygen Delivery Method Room Air Room Air Room Air 12/14/24 17:46 12/14/24 19:26 12/14/24 20:32 Temperature 98.2 F 98.4 F 98.4 F Pulse Rate 89 90 90 Respiratory Rate 18 18 18 Blood Pressure 146/77 H 139/81 139/81 Pulse Oximetry 98 97 97 Oxygen Delivery Method Room Air Room Air Room Air BMI result Body Mass Index 35.2 Appearance: Alert. Oriented X3. No acute distress. Eyes: Pupils equal, round and reactive to light. ENT: Pharynx normal. Neck: ttp along R lateral and left lateral area as well as trapezius ttp both UE intact CVS: Pulses normal. Respiratory: No respiratory distress. Abdomen: Soft and nontender. Back: lower lumbar spine and paraspinals ttp Skin: Skin warm and dry. Normal skin color. Normal skin turgor. Extremities: No lower extremity edema. No calf ttp Neuro: Oriented X 3. No motor deficit. No sensory deficit. CN2-12 intact L5 5/5 bilaterally SILT inner thigh, 2+ DTR in achilles and patella. Course Course Course Narrative: Rapid medical examination performed in triage by Tootie Gorman PA-C. Patient is a 39 year old assigned female at presenting to the emergency department with neck and back pain. Patient states she has known neck and back pain but it has been getting much worse. 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 Detailed physical exam and review of systems are deferred to the assistant inventory manager. Patient placed back in the waiting room pending room availability. Reevaluation(s) Reevaluation #1: walking around pain is somewhat improved but now she states both thighs are numb at this time MRI ordered. 525pm Medications Administered Discontinued Medications Generic Name Dose Route Start Last Admin Trade Name Freq PRN Reason Stop Dose Admin Dexamethasone Sodium Phosphate 6 mg 12/14/24 14:01 12/14/24 14:28 Dexamethasone Sod Phosphate 4 Mg/Ml Vial IVPUSH 12/14/24 14:02 6 mg ONCE ONE Administration Diazepam 2.5 mg 12/14/24 14:01 12/14/24 14:28 Diazepam 10 Mg/2 Ml Cartridge IVPUSH 12/14/24 14:02 2.5 mg STAT STA Administration Hydromorphone HCl 1 mg 12/14/24 15:27 12/14/24 15:44 Hydromorphone Hcl 1 Mg/Ml Syringe IVPUSH 12/14/24 15:28 1 mg ONCE ONE Administration Protocol Hydromorphone HCl 1 mg 12/14/24 19:43 12/14/24 19:58 Hydromorphone Hcl 1 Mg/Ml Syringe IVPUSH 12/14/24 19:44 1 mg ONCE ONE Administration Protocol Ketorolac Tromethamine 15 mg 12/14/24 14:01 12/14/24 14:28 Ketorolac Tromethamine 15 Mg/Ml Vial IVPUSH 12/14/24 14:02 15 mg ONCE ONE Administration Medical Decision Making Medical Decision Making MDM Narrative: 39 yo female with PMH of fusion of L3-L4 not on blood thinners she is NV intact now with c/o low back pain and neck pain she is 5/5 in strenght her pulses are intact, she has normal sensation on exam and no b/b incontinenc or saddle anesthesia. At this time will need pain control and start on steroids. I spoke to her spine proider who agrees with outpatient MRI Differential Diagnosis Differential Diagnoses: The differential diagnosis associated with the present ation includes disc herniation, spasm,strain Admission/Observation Consideration of admission/observation: Escalation of care including admission/observation considered no cauda equina symptoms can be managed as outpatient MRI no cord compression and no exiting nerve root compression reported to suggest cauda equina she is up and walking she has no findings on clinical exam other than back pain Consult Healthcare Provider Management of the patient was discussed with: Educational Specialist Independent Interpretation I performed an independent interpretation of an: MRI Radiology Impression Discussion of test interpretation with radiology: I have reviewed the radiologist's reading. External Record Review External record reviewed: Outpatient record Prescription Management I considered prescription management with: Pain Medication and Other Discharge Plan Discharge Clinical Impression: Strain of lumbar region, Cervical radiculopathy Patient Disposition: Home, Self-Care Instructions: Cervical Radiculopathy (ED), Back Pain (ED) Additional Instructions: please follow up with your doctor as recommended by your spine provider in the next week return for numbness in private area, loss of control of bowel or bladder or any other concerns no lifting more than 10lbs for 2 weeks. HOLD TRAMADOL WHILE ON HYDROCODONE Prescriptions: New cyclobenzaprine 10 mg tablet 10 mg PO TID PRN (Reason: muscle spasm) Qty: 20 0RF hydrocodone-acetaminophen 5-325 mg tablet 1 tab PO Q6H PRN (Reason: pain) Qty: 14 0RF Rx Instructions: partial fill okay; Partial Fill upon patient request. prednisone 20 mg tablet 40 mg PO DAILY 4 Days Qty: 8 0RF lidocaine 5 % adhesive patch,medicated 1 patch topical DAILY Qty: 30 0RF Rx Instructions: leave on most painful area for up to 12 hrs ibuprofen 600 mg tablet 600 mg PO Q6H PRN (Reason: pain) Qty: 30 0RF No Action losartan 25 mg tablet 25 mg PO DAILY omeprazole 20 mg capsule,delayed release(DR/EC) 20 mg PO DAILY ascorbic acid (vitamin C) 500 mg tablet 500 mg PO DAILY Qty: 90 0RF ferrous sulfate [iron] 325 mg (65 mg iron) tablet 325 mg PO DAILY Qty: 90 0RF tramadol 50 mg tablet 100 mg PO Q6H PRN (Reason: pain) Qty: 30 0RF Referrals: [facility] [Provider Group, Neurosurgery] Interventions: ED Discharge Assessment Last Done: 12/14/24 20:32 Discharge Date/Time: 12/14/24 20:33 Print Language: Vincentian
[2024-12-14] MEDS: diazePAM 10 MG/2 ML CARTRIDGE 2.5 MG IVPUSH (14:28)
[2024-12-14 15:28] VITALS: BP 128/70; PULSE 84; RESP 18; TEMP 36.6; O2SAT 100
[2024-12-14 16:44] VITALS: BP 115/88; PULSE 67; O2SAT 100
[2024-12-14 17:46] VITALS: BP 146/77; PULSE 89; RESP 18; TEMP 36.8; O2SAT 98
--- NOTE | 2024-12-14 18:31 | PC.NURSE ---
Patient leaving to MRI
[2024-12-14 19:26] VITALS: BP 139/81; PULSE 90; RESP 18; TEMP 36.9; O2SAT 97
[2024-12-14 20:32] VITALS: BP 139/81; PULSE 90; RESP 18; TEMP 36.9; O2SAT 97
== END 2024-12-14 20:33 | disposition home or self-care (01) ==
PROVIDERS: Emergency Provider Emergency Medicine; PCP Student in an Organized Health Care Education/Training Program
DX: S33.5XXA Sprain of ligaments of lumbar spine, initial encounter (principal); M54.12 Radiculopathy, cervical region; X50.1XXA Overexertion from prolonged static or awkward postures, initial encounter; Y93.89 Activity, other specified; Y92.89 Other specified places as the place of occurrence of the external cause; Y99.8 Other external cause status
CPT/HCPCS: 72148; 96374; 96375; 96376; 99284; J1100; J1171; J1885; J3360

== ENCOUNTER → 2024-12-14 17:24 | Outpatient (BNV) | payer OTHER, SELFPAY | PROVIDERS: Emergency Provider Emergency Medicine; PCP Student in an Organized Health Care Education/Training Program; Visit Provider Radiology Diagnostic Radiology | DX: M48.061 Spinal stenosis, lumbar region without neurogenic claudication (principal); M54.50 Low back pain, unspecified | CPT/HCPCS: 72148 ==

== ENCOUNTER 2024-12-17 12:59 | Outpatient (AMB) | payer OTHER, SELFPAY ==
--- NOTE | 2024-12-17 13:01 | HO.SPINEOV ---
Intake Visit Reasons: ED F/U Intake Note: Ms. Andrade is here today for an ED F/u for back pain. 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 She is a 39-year-old female with a previous history of an L4-5 surgery done in 2019 in [place], sounds like she presented with cauda equina syndrome, had to have a reoperation done within 24 hours secondary to retained disc fragment. Her initial presenting symptoms were paraparesis and bladder incontinence. She continued to have numbness throughout her whole legs even after surgery. She did regain the ability to walk again and became very active. She did have day-to-day back pain and discomfort which was manageable until about 9 or 10 days ago. She can not recall any specific event but she felt acute onset of pain in her back as well as in her neck. She feels burning down the back of her thighs ends at about her hamstring as well as feelings of numbness all along her left arm. She was doing some work at the [employer] but not enough lifting or anything that she thought it would generate these kind of symptoms. She ended up in the emergency room yesterday getting an MRI showing degenerative changes at L4-5 with foraminal stenosis. She is on prednisone, tramadol, hydrocodone and ibuprofen. These things seem to be helping her pain but she is still generally miserable when she is up moving around or sitting for any length of time. She has done no other conservative treatment. PMH: She denies any other medical history, she has the back surgery not a than that denies any medical problems at all. She takes no daily medications. Social hx: She smokes cigarettes, but does not smoke marijuana or use any alcohol Medications: Tramadol, ibuprofen, hydrocodone, cyclobenzaprine and more recently prednisone Allergies: None Physical exam: Awake alert oriented no acute distress, gait is normal, strength in the upper and lower extremities is normal. She has a well healed midline incision on her lower back. Slightly brisk reflexes on the left with possibly it beat of clonus in the left ankle. Negative Beth's sign. Imaging review: Lumbar MRI done at [place] shows postsurgical changes at L4-5 with strange streak artifact seen in the posterior soft tissues, there is decompression of the L4-5 space, there severe disc collapse at L4-5 with Modic type 3 endplate changes in bilateral neuroforaminal narrowing. There is no residual central canal stenosis. Impression: 39-year-old female with cauda equina syndrome 5 years ago, who underwent 2 successive microdiskectomies within 24 hours, who had residual postoperative issues with bladder incontinence and numbness of her legs diffusely, who was more less functional and living an active life, until about 9 or 10 days ago when she felt acute onset of pain in her low back radiating down the back of her legs into her hamstrings. She could not recall any specific provocative event that is sent this off. She also was experiencing left-sided neck pain with numbness in her left arm as well. Her exam demonstrates a little bit of hyperreflexia on the left side with other than that her strength and gait are normal. Her lumbar MRI shows severe disc collapse at L4-5 with Modic endplate changes type 3 with neuroforaminal narrowing but no central canal narrowing. I will send her for flexion-extension x-rays. I did review the case with Dr. Anguiano, the best surgical approach would be a left-sided L4-5 transforaminal lumbar interbody fusion if she ends up needing it. For now since she has only had the pain for 9 or 10 days, I will recommend she continue on with conservative treatment in the form of physical therapy, and possibly a cortisone injection. We will also order cervical spine MRI because of the numbness of her left arm in the hyperreflexia on the left side. Thank you for allowing us to care for your patient. The total time spent with this visit with this patient was 45 minutes reviewing history, physical exam, lumbar imaging review, and implementation of treatment plan or further diagnostic testing Grant Anguiano MD,PhD [facility] Orders: Orders XR cervical spine 4V Today M50.90 - Cervical disc disorder, unspecified, unspecified cervical region PT Evaluation and Treatment Today M43.16 - Spondylolisthesis, lumbar region, M50.90 - Cervical disc disorder, unspecified, unspecified cervical region XR lumbar spine 4V min Today M43.16 - Spondylolisthesis, lumbar region, Z98.890 - Other specified postprocedural states MR cervical spine wo con Today M50.90 - Cervical disc disorder, unspecified, unspecified cervical region Referrals Pain Management Referral M43.16 - Spondylolisthesis, lumbar region Coding Level of Care Code New Pt Level 4 (73097) Diagnoses Cervical disc disorder M50.90 History of back surgery Z98.890 Spondylolisthesis, lumbar region M43.16
--- OUTSIDE RECORDS SUMMARY | 2024-12-17 14:28 | XMS_ITS | Encounter Summary ---
Author Organization [facility] [place] [address] Care Team Providers Care Sausage Cutter Name Role Phone Grant Ac MD Primary Care Provider +1- [phone] Reason for Visit * Reason Onset Date Comments Medication Refill 06/23/2021 Encounter Details Date Type Department Care Team (Late Contact Info) Description 06/23/2021 Refill Primary Care at [address] [phone] Grant Ac MD [address] [place] [address] Social History Tobacco Use Types Packs/Day [...] PM EST Office Visit Ophthalmology at [facility] [address] [place] [address] Umair Chavez MD [address] [facility] [address] documented as of this encounter Visit Diagnoses Not on filedocumented in this encounter Additional Health Concerns Infection Onset Date Last Indicated Resolved Time Rule Out Respiratory 08/16/2021 08/16/202108/17/2 022 1:13 AM EDT Rule Out COVID-19 08/16/2021 08/16/2021 08/17/2021 1:13 AM EDT Rule Out COVID-19 03/14/2024 03/14/2024 03/15/2024 12:01 AM EST documented as of this encounter Care Teams Sausage Cutter Relationship Specialty Start Date End Date Grant Ac MD [address] [place] [address] [place] [address] PCP - General Family Medicine 07/02/17 documented as of this encounter
--- OUTSIDE RECORDS SUMMARY | 2024-12-17 14:28 | XMS_ITS | Encounter Summary ---
Author Organization [facility] [place] [address] Care Team Providers Care Diffusion Operator Name Role Phone Grant Ac MD Primary Care Provider +1- [phone] Reason for Visit * Reason Onset Date Comments Neck And Arm Pain 09/09/2024 Encounter Details Date Type Department Care Team (Late st Contact Info) Description 09/09/2024 Nurse Triage Primary Care at [address] [place] [address] Seth Rodríguez RN Neck And Arm [...] PM EDT Left message to call back. [facility] Please send message for Team B nursing response, advise patient to be near phone with ringer and we will attempt to call back as soon as possible. * Telephone Encounter - Seth Rodríguez RN - 09/10/2024 1:49 PM EDT Copied from [facility] #[id number]. Topic: Generic Non-Symptom Based - Generic Call [...] as possible. Message sent to patient via [employer]. * Telephone Encounter - Seth Rodríguez RN - 09/09/2024 5:22 PM EDT Appointment Request From: Ivonne Andrade With Provider: Grant Ac MD [Primary Care at [place]] Preferred Date Range: 09/10/2024 - 09/14/2024 Preferred [...] Upcoming Encounters Date Type Department Care Team ([facility] st Contact Info) Description 02/01/2025 3:30 PM EST Office Visit Ophthalmology at [address] [phone] Umair Chavez MD [address] [place] [address] [place] [address] documented as of this encounter Visit Diagnoses Not on filedocumented in this encounter Care Teams Diffusion Operator Relationship Specialty Start Date End Date Grant Ac MD [address] [place] [address] PCP - General Family Medicine 07/02/17 documented as of this encounter
--- OUTSIDE RECORDS SUMMARY | 2024-12-17 14:28 | XMS_ITS | Encounter Summary ---
Author Organization [facility] Address [facility] [place] [address] Care Team Providers Care Consulting Services Project Manager Name Role Phone Grant Ac MD Primary Care Provider +1- [phone] Reason for Visit * Reason Comments Medication Refill Encounter Details Date Type Department Care Team ([facility] Contact Info) Description 04/09/2023 Refill Otolaryngology at [address] [phone] Ninfa Julian PA [address] [place] [address] [phone] Nasal obstruction; Chronic allergic rhinitis Social History [...] place to sleep or slept in a nursing home (including now)? No 04/12/2022 Comments No Sex [...] 3:30 PM EST Office Visit Ophthalmology at [address] [phone] Umair Chavez MD [address] [place] [address] [place] [address] documented as of this encounter Visit Diagnoses Diagnosis Nasal obstruction Other diseases of nasal cavity and sinuses Chronic allergic rhinitis Allergic rhinitis, cause unspecified documented in this encounter Additional Health Concerns Infection Onset Date Last Indicated Resolved Time Rule Out COVID-19 03/14/2024 03/14/2024 03/15/2024 12:01 AM EST documented as of this encounter Care Teams Consulting Services Project Manager Relationship Specialty Start Date End Date Grant Ac MD [address] [place] [address] PCP - General Family Medicine 07/02/17 documented as of this encounter
--- OUTSIDE RECORDS SUMMARY | 2024-12-17 14:28 | XMS_ITS | Encounter Summary ---
Author Organization [facility] Address [facility] [place] [place] [address] Care Team Providers Care Lime Spreader Name Role Phone Grant Ac MD Primary Care Provider +1- [phone] Reason for Visit * Reason Comments Medication Refill Encounter Details Date Type Department Care Team ([facility] Contact Info) Description 2022 Refill Otolaryngology at [address] [phone] Ninfa Julian PA [address] [place] [address] [phone] Nasal obstruction; Chronic allergic rhinitis Social History [...] place to sleep or slept in a senior care (including now)? No 04/12/2022 Comments No Sex and Gender Information Value Date Recorded Sex Assigned at Not on file Legal Sex Female 2:32 PM EDT Gender Identity Not on file Sexual Orientation Not on file documented as of this encounter Plan of Treatment Upcoming Encounters Date Type Department Care Team ([facility] st Contact Info) Description 02/01/2025 3:30 PM EST Office Visit Ophthalmology at [address] [phone] Umair Chavez MD [address] [place] [address] [place] [address] documented as of this encounter Visit Diagnoses Diagnosis Nasal obstruction Other diseases of nasal cavity and sinuses Chronic allergic rhinitis Allergic rhinitis, cause unspecified documented in this encounter Additional Health Concerns Infection Onset Date Last Indicated Resolved Time Rule Out COVID-19 03/14/2024 03/14/2024 03/15/2024 12:01 AM EST documented as of this encounter Care Teams Lime Spreader Relationship Specialty Start Date End Date Grant Ac MD [address] [place] [address] PCP - General Family Medicine 07/02/17 documented as of this encounter
--- OUTSIDE RECORDS SUMMARY | 2024-12-17 14:28 | XMS_ITS | Encounter Summary ---
Author Organization [facility] [address] Care Team Providers Care Flight Attendant Name Role Phone Grant Ac MD Primary Care Provider +1- [phone] Reason for Visit * Reason Onset Date Comments Medication Refill 01/03/2021 Encounter Details Date Type Department Care Team (Late Contact Info) Description 01/03/2021 Refill Primary Care at [address] [phone] Grant Ac MD [address] [place] [address] Low back pain Social History Tobacco [...] 3:30 PM EST Office Visit Ophthalmology at [address] [phone] Umair Chavez MD [address] [place] [address] [place] [address] documented as of this encounter Visit Diagnoses Diagnosis Low back pain Lumbago documented in this encounter Additional Health Concerns Infection Onset Date Last Indicated Resolved Time Rule Out Respiratory 08/16/2021 08/16/2021 022 1:13 AM EDT Rule Out COVID-19 08/16/2021 08/16/2021 08/17/2021 1:13 AM EDT Rule Out COVID-19 03/14/2024 03/14/2024 03/15/2024 12:01 AM EST documented as of this encounter Care Teams Flight Attendant Relationship Specialty Start Date End Date Grant Ac MD [address] [place] [address] PCP - General Family Medicine 07/02/17 documented as of this encounter
--- OUTSIDE RECORDS SUMMARY | 2024-12-17 14:28 | XMS_ITS | Encounter Summary ---
Author Organization [facility] Address One [facility] [place] [address] Care Team Providers Care Salvage Determiner Name Role Phone Grant Ac MD Primary Care Provider +1- [phone] Reason for Visit * Reason Comments Medication Refill Encounter Details Date Type Department Care Team ([facility] Contact Info) Description 12/22/2022 Refill Primary Care at [address] [place] [phone] Grant Ac MD [address] [place] [address] [phone] Acute non-recurrent frontal sinusitis Social History Tobacco [...] place to sleep or slept in a prison (including now)? No 04/12/2022 Comments No Sex and Gender Information Value Date Recorded Sex Assigned at Not on file Legal Sex Female 2:32 PM EDT Gender Identity Not on file Sexual Orientation Not on file documented as of this encounter Plan of Treatment Upcoming Encounters Date Type Department Care Team (Late st Contact Info) Description 02/01/2025 3:30 PM EST Office Visit Ophthalmology at [address] [phone] Umair Chavez MD [address] [place] [address] [place] [address] documented as of this encounter Visit Diagnoses Diagnosis Acute non-recurrent frontal sinusitis documented in this encounter Additional Health Concerns Infection Onset Date Last Indicated Resolved Time Rule Out COVID-19 03/14/2024 03/14/2024 03/15/2024 12:01 AM EST documented as of this encounter Care Teams Salvage Determiner Relationship Specialty Start Date End Date Grant Ac MD [address] [place] [address] [place] [address] PCP - General Family Medicine 07/02/17 documented as of this encounter
--- OUTSIDE RECORDS SUMMARY | 2024-12-17 14:28 | XMS_ITS | Encounter Summary ---
Author Organization [facility] [place] [address] Care Team Providers Care Staffing Account Manager Name Role Phone Grant Ac MD Primary Care Provider +1- [phone] Encounter Details Date Type Department Care Team (Late Contact Info) Description 08/15/2021 Refill Primary Care at [address] [phone] Grant Ac MD [address] [place] [address] Social History Tobacco Use Types Packs/Day [...] 3:30 PM EST Office Visit Ophthalmology at [facility] [address] [place] [address] Umair Chavez MD [address] [facility] [place] [address] documented as of this encounter Visit Diagnoses Not on filedocumented in this encounter Additional Health Concerns Infection Onset Date Last Indicated Resolved Time Rule Out Respiratory 08/16/2021 08/16/20212 022 1:13 AM EDT Rule Out COVID-19 08/16/2021 08/16/2021 08/17/2021 1:13 AM EDT Rule Out COVID-19 03/14/2024 03/14/2024 03/15/2024 12:01 AM EST documented as of this encounter Care Teams Staffing Account Manager Relationship Specialty Start Date End Date Grant Ac MD [address] [place] [address] PCP - General Family Medicine 07/02/17 documented as of this encounter
--- OUTSIDE RECORDS SUMMARY | 2024-12-17 14:28 | XMS_ITS | Encounter Summary ---
Author Organization [facility] Address One [facility] [place] [address] Care Team Providers Care Grounds/Maintenance Specialist Name Role Phone Grant Ac MD Primary Care Provider +1- [phone] Reason for Visit * Reason Comments Medication Refill Encounter Details Date Type Department Care Team ([facility] Contact Info) Description 06/04/2023 Refill Otolaryngology at [address] [phone] Ninfa Julian PA [address] [place] [address] [phone] Nasal obstruction; Chronic allergic rhinitis Social History [...] place to sleep or slept in a fci (including now)? No 04/12/2022 DH IPV Inpatient [...] PM EST Office Visit Ophthalmology at [address] [phone] Umair Chavez MD [address] [place] [address] [place] [address] documented as of this encounter Visit Diagnoses Diagnosis Nasal obstruction Other diseases of nasal cavity and sinuses Chronic allergic rhinitis Allergic rhinitis, cause unspecified documented in this encounter Additional Health Concerns Infection Onset Date Last Indicated Resolved Time Rule Out COVID-19 03/14/2024 03/14/2024 03/15/2024 12:01 AM EST documented as of this encounter Care Teams Grounds/Maintenance Specialist Relationship Specialty Start Date End Date Grant Ac MD [address] [place] [address] PCP - General Family Medicine 07/02/17 documented as of this encounter
--- OUTSIDE RECORDS SUMMARY | 2024-12-17 14:28 | XMS_ITS | Encounter Summary ---
Author Organization [facility] [place] [address] Care Team Providers Care Pattern Cutter Name Role Phone Grant Ac MD Primary Care Provider +1- [phone] Reason for Visit * Reason Onset Date Comments Medication Refill 02/10/2022 Encounter Details Date Type Department Care Team (Late Contact Info) Description 02/10/2022 Refill Primary Care at [address] [phone] Grant Ac MD [address] [place] [address] Social History Tobacco Use Types Packs/Day [...] 3:30 PM EST Office Visit Ophthalmology at [facility] [address] [place] [address] Umair Chavez MD 149 [facility] [place] [address] documented as of this encounter Visit Diagnoses Not on filedocumented in this encounter Additional Health Concerns Infection Onset Date Last Indicated Resolved Time Rule Out COVID-19 03/14/2024 03/14/2024 03/15/2024 12:01 AM EST documented as of this encounter Care Teams Pattern Cutter Relationship Specialty Start Date End Date Grant Ac MD [address] [facility] [place] [address] PCP - General Family Medicine 07/02/17 documented as of this encounter
--- OUTSIDE RECORDS SUMMARY | 2024-12-17 14:28 | XMS_ITS | Clinical Summary ---
Author Organization [facility] Address One [facility] [place] [address] Care Team Providers Care Buttonholer Name Role Phone Grant Ac MD Primary Care Provider [phone]- [phone] Allergies Active Allergy Reactions Criticality Noted Date Comments Lisinopril Other (See Comments) 02/28/2023 Cough Medications fluticasone propionate (Flonase) 50 mcg/actuation [place], SuspensionIndica tions:Acute non-recurrent frontal sinusitis 2 sprays [...] - Signed DPR Vinicio Gunn () permenant [phone] Problem Noted Date Diagnosed Date Right arm numbness 11/19/2023 Depression 08/30/2023 Lumbar disc herniation 11/28/2022 Snoring 05/11/2022 Nasal obstruction 05/11/2022 Chronic allergic rhinitis 05/11/2022 Frontal headache 05/11/2022 Herniation of lumbar intervertebral disc with ra diculopathy 01/08/2022 Radiculopathy of cervical region 08/17/2021 Numbness 06/16/2021 Pain of left sacroiliac joint 06/16/2021 Tendinitis of right rotator cuff 06/30/2020 residential 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 2019 Overview [...] Team Description 11/27/2024 Refill Primary Care at [address] [phone] Grant Ac MD Other chronic pain; Recurrent low back pain 11/16/2024 Refill Primary Care at [address] [phone] Grant Ac MD Other chronic pain; Recurrent low back pain 10/28/2024 Refill Primary Care at [address] [phone] Brian Horne PA Other chronic pain; Recurrent low back pain 10/23/2024 Telephone Primary Care at [address] [phone] Marcelle Lockhart LPN 10/19/2024 Refill Primary Care at [address] [phone] Grant Ac MD Other chronic pain; Recurrent low back pain; residential 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 10/17/2024 1:54 PM EDT - 10/17/2024 11:59 PM EDT Hospital Encounter MRI at [address] [phone] Jeni Butler APRN Slurred speech; Generalized weakness Discharge Disposition: Home 10/16/2024 10:30 AM EDT Laboratory Appointment Lab at [address] [phone] Encounter for vitamin deficiency screening; Slurred speech; Generalized weakness; Vitamin D deficiency; Numbness; Facial twitching 10/16/2024 10:00 AM EDT - 10/16/2024 11:59 PM EDT Hospital Encounter CAT Scan at [address] [phone] Jeni Butler APRN Slurred speech; Generalized weakness Discharge Disposition: Home 10/16/2024 9:35 AM EDT Office Visit Primary Care at [address] [phone] Jeni Butler APRN Recurrent low back pain; Slurred speech; Facial twitching; Generalized weakness; Numbness; Encounter for vitamin deficiency screening 10/16/2024 Legacy Encounter Primary Care at [address] [phone] Jeni Butler APRN 10/16/2024 Results Follow-Up Primary Care at [address] [phone] Jeni Butler, MECHANICAL MAINTENANCE CT Head wo Contrast (Standard), Vitamin D, 25-Hydroxy, Comprehensive metabolic panel Fasting required, MRI Brain wwo Contrast (Standard) 10/16/2024 Travel 10/05/2024 Telephone Primary Care at [address] [phone] Gali Carlson RN 10/04/2024 Refill Primary Care at [address] [phone] Grant Ac MD Other chronic pain; Recurrent low back pain 09/21/2024 Refill Primary Care at [address] [phone] Grant Ac MD Other chronic pain; Recurrent low back pain from Last 3 Months Immunizations Immunization Administration Dates Next Due Covid-19 Monovalent (Pfizer Comirnaty purple cap) 12yrs+ (6955-1906) 05/17/2020 Influenza (Flucelvax) Trival ent Preservative Free, Egg Free Madin [place] Canine Kidney 12/04/2024 Influenza Quadrivalent, Preservative Free 2022,03/13/2019 Influenza Trivalent, [...] place to sleep or slept in a intermediate (including now)? No 04/12/2022 DH IPV Inpatient [...] 3:30 PM EST Office Visit Ophthalmology at [address] [phone] Umair Chavez MD [address] [place] [address] [place] [address] Health Maintenance Due Date Last Done Comments HIV screen 2004 Hepatitis C Screening 2004 Hepatitis B vaccine (0-59 yr s) and Risk (1) 2005 Covid-19 Vaccine (2024-2 6 season) 2024 06/15/2020, 05/17/2020 HPV test 01/26/2026 01/26/2021 PAP Smear 01/26/2026 01/26/2021 Diabetes Screening (HgbA1C o r Glucose) 10/17/2027 10/16/2024, 03/14/2024, 03/13/2024, Additional history exists Lipid Screening 02/29/2028 02/28/2023 Tetanus/Diphtheria/Pertussis Vaccines (2 - Td or Tdap) 10/10/2030 10/10/2020, 12/30/2017 Pneumococcal Vaccine: At-Ris k 5-49yrs Completed 01/30/2023, 10/10/2020 Influenza (Flu) vaccine Completed 12/05/19 25, 01/30/2023, 01/16/2022, Additional history exists Medical Devices Implanted Type Area Surgical Appliance Fitter Device Identifier Shelf Expiration Date Model / Serial / Lot Seala,Dura,Spi ne,Ext,5ml ([id number]) - [id number] Implanted:Qty: 1 on 04/21/2019 by Kunal Cruz MD at [facility] IMPLANTS DO NOT USE Cell Genesys - INTEGRA LI [id number] / / [id number] Procedures Procedure Name Priority Date/Time Associated Diagnosis [...] exam HPV Routine 01/26/2021 11:18 AM EST CHARACTER ACTOR CYTOLOGY FINAL REPORT Routine 01/26/2021 11:18 AM EST from Last 3 Months or Most Recently Relevant to Health Maintenance Results * MRI Brain wwo Contrast (Standard) (10/17/2024 2:56 PM EDT) WORKSTATION ID [id number] DH RAD Anatomical Region Laterality Modality Head [...] who have questions please contact the health transitional care nurse that requested your imaging first. Electronically signed by: ISAI INGRAM MD, [facility] ([phone]), at 10/17/2024 4:31 PM Narrative 10/17/2024 4:31 [...] patients who have questions please contactthe health transitional care nurse that requested your imaging first. Electronically signed by: ISAI INGRAM MD, [facility]([phone]), at 10/17/2024 4:31 PM Jeni Mccormick Carrie WALTERS IMG MRI ORDERABLES Final Result * CT Head wo Contrast (Standard) (10/16/2024 10:37 AM EDT) [employer] WORKSTATION ID [id number] DH RAD Anatomical Region Laterality Modality Head [...] who have questions please contact the health transitional care nurse that requested your imaging first. Electronically signed by: ISAI INGRAM MD, [facility] ([phone]), at 10/16/2024 10:39 AM Narrative 10/16/2024 10:39 [...] patients who have questions please contactthe health transitional care nurse that requested your imaging first. Electronically signed by: ISAI INGRAM MD, [facility]([phone]), at 10/16/2024 10:39 AM Jeni Butler APRN IMG CT ORDERABLES Final R esult * Vitamin D, 25-Hydroxy (10/16/2024 10:18 AM EDT) Vitamin D Total 25 OH 23 21 - 100 ng/ml 10/16/2024 1:17 PM EDT [facility] Vitamin D Total 25 OH Interp Insufficient 10/16/2024 1:17 PM EDT [facility] Blood VENOUS BLOOD SPECIMEN / Unknown Venipuncture / Unknown 10/16/2024 10:18 AM EDT 10/16/2024 10:18 AM EDT MD Lingo Jeni S [employer] MECHANICAL MAINTENANCE CHEMISTRY ORDERABLES Ivette l Result Performing Organization Address [facility]/ZIP Co de Phone Number [facility] [address] [place] [address] * Vitamin B12 (10/16/2024 10:18 AM EDT) Vitamin B12 746 232 - 1,245 pg/mL 10/16/2024 4:26 PM EDT [facility] Blood VENOUS BLOOD SPECIMEN / Unknown Venipuncture / Unknown 10/16/2024 10:18 AM EDT 10/16/2024 10:18 AM EDT us Jeni S [employer] MECHANICAL MAINTENANCE CHEMISTRY ORDERABLES Ivette l Result Performing Organization Address [facility] Co de Phone Number [facility] [address] [place] [address] * (ABNORMAL) Comprehensive metabolic panel Fasting required (10/16/2024 10:18 AM EDT) Glucose 91 65 - 99 mg/dL 10/16/2024 11:03 AM EDT [facility] Comment: Fasting Glucose Interpretive Criteria: Normal: 65-99 mg/dL Prediabetes: 100-125 mg/dL Consistent with Diabetes Mellitus: > or = 126 mg/dL Classification and Diagnosis of Diabetes: Standards of Care in Diabetes - 2022. Diabetes Care 2022; 46:S19. Fasting is defined as no caloric intake for at least 8 hours. Blood Urea Nitrogen 7(L) 8 - 18 mg/dL 10/16/2024 11:03 AM EDT [facility] Creatinine 0.48(L) 0.70 - 1.20 mg/dL 10/16/2024 11:03 AM EDT [facility] Sodium 139 135 - 145 mMol/L 10/16/2024 11:03 AM [facility] Potassium 4.4 3.5 - 5.0 mMol/L 10/16/2024 11:03 AM [facility] Chloride 98 98 - 107 mMol/L 10/16/2024 11:03 AM [facility] Carbon Dioxide 27 22 - 31 mMol/L 10/16/2024 11:03 AM [facility] Anion Gap 14 5 - 15 mMol/L 10/16/2024 11:03 AM [facility] Calcium 9.5 8.5 - 10.5 mg/dL 10/16/2024 11:03 AM [facility] Protein, Total 6.9 6.1 - 8.0 g/dL 10/16/2024 11:03 AM [facility] Albumin 4.1 3.2 - 5.2 g/dL 10/16/2024 11:03 AM [facility] Aspartate Aminotransferase 21 <=30 unit/L 10/16/2024 11:03 AM [facility] Alanine Aminotransferase 20 0 - 30 unit/L 10/16/2024 11:03 AM [facility] Alkaline Phosphatase 125(H) 35 - 105 unit/L 10/16/2024 11:03 AM [facility] Bilirubin, Total 0.3 <=1.3 mg/dL 10/16/2024 11:03 AM [facility] Est Glomerular Filtration Rate - Female 125 >=90 mL/min/1. 73 m 10/16/2024 11:03 AM [facility] Comment: This patient's estimated GFR was [...] Fasting Status Yes 10/16/2024 11:03 AM EDT [facility] Blood VENOUS BLOOD SPECIMEN / Unknown Venipuncture / Unknown 10/16/2024 10:18 AM EDT 10/16/2024 10:18 AM EDT us Jeni S Butler MECHANICAL MAINTENANCE CHEMISTRY ORDERABLES Ivette davida Result [facility] [address] [place] [address] * Lipid Panel (Reflex Direct LDL) (02/28/2023 10:19 AM EST) Cholesterol, Total 253 mg/dL C [facility] Comment: Lower Risk: <200 mg/dL Average Risk: 200-239 mg/dL Higher Risk: >ni=733 mg/dL Triglyceride 194 mg/dL [facility] Comment: Average Risk/Lower Risk: <150 mg/dL Borderline High Risk: 150-199 mg/dL High Risk: 200-499 mg/dL Very High Risk: >dt=051 mg/dL HDL Cholesterol 48 mg/dL [facility] Comment: Males: Higher Risk: <40 mg/dL Females: Higher Risk: <50 mg/dL LDL Cholesterol 166 mg/dL [facility] Comment: Lowest Risk: <100 mg/dL Lower Risk: 100-129 mg/dL Borderline High Risk: 130-159 mg/dL High Risk: 160-189 mg/dL Very High Risk: >oe=636 mg/dL Cholesterol/HDL Ratio 5.3 ratio [facility] Lipid Interpretation See Note [facility] Comment: Lipid management should be guided by a patient s ASCVD risk, goals and preferences. ACC/AHA Guidelines recommend high intensity statin if clinical ASCVD or LDL greater than or equal to 190 mg/dL. http://tinyurl.com/PZL-JPP-Altfhzlzs Adults aged 40-75 with LDL 70-189 mg/dL should have their 10 year ASCVD risk estimated with the ACC/AHA ASCVD risk junior estimator http://tools.acc.org/ENBZN-Yrcs-Qztyhcacv/ Statin should be discussed if risk greater [...] CHEMISTRY ORDERABLES Final Result Performing Organization Address City/[facility]/ZIP Co de Phone Number [facility] [address] [place] [id number] * HPV (01/26/2021 11:18 AM EST) HPV16 NEGATIVE NEGATIVE [facility] HPV 18 NEGATIVE NEGATIVE [facility] HPV Other HR NEGATIVE NEGATIVE [facility] HPV Interpretation See Comment [facility] Comment: NEGATIVE for high-risk HPV *. [...] Comment Spec In Lab us Candace Garcia MECHANICAL MAINTENANCE PATHOLOGY/CYTOLOGY ORDERAB LES Final Result Performing Organization Address [facility] Co de Phone Number [facility] [place] [address] * Cable Ferryboat Operator Cytology Final Report (01/26/2021 11:18 AM EST) Cable Ferryboat Operator Cytology Final Report [id number] Location: [facility] The signing pathologist has (i) examined the relevant preparation(s) for the specimen(s) and (ii) rendered or confirmed the diagnosis(es). . Cable Ferryboat Operator Final DIAGNOSIS Normal Negative for intraepithelial lesion or malignancy (NILM). For consensus guidelines for the management of cervical cancer screening test results, please see: http://www.asccp. org . Electronically signed by: Ravindra RYAN(ASCP) Asuncion Mccall Verified: 02/10/2021 15:07 Job Press Feeder Performed at: -[facility] Dept. of Pathology, [place], [place] HPV RESULTS HPV16 (Result) Negative HPV18 [...] Testing - Cytology Liquid Based Prep The Maddei amado HPV test was validated, performed and results reported through the [facility] Gen[facility] ([facility]) at [facility]. - Jose Carlos Bain, PhD, [facility], Director-[facility] STATEMENT OF ADEQUACY Specimen submitted is [...] Yes, history of previous abnormal Pap Prior CHARACTER ACTOR Therapy: No Hist of HPV Vaccine: No ICD Diagnosis: Z12.4 Encounter for screening for malignant neoplasm of cervix . CLINICAL INFORMATION Clinical Data, Significant Therapy and Clinical Impression : _ This Pap Test has been evaluated with the assistance of the MoSyncPrep Pap Test Imaging System. Note: The Pap test is a screening test for cervical cancer with an inherent false-negative rate dependent upon several variables. For further information please contact the [facility] Laboratory. Reference: Ruma MATT. Lamp Wirer of Pap Smear Results. In: Cely BS, Conrad HH, ed. The Pap Smear. [place]: Jayson, 2002: 71-77. [facility] 01/26/2021 11:1 8 AM EST us Candace Willsonasya MECHANICAL MAINTENANCE PATHOLOGY/CYTOLOGY ORDERAB LES Final Result [facility] [place] [address] from Last 3 Months or Most Recently Relevant to Health Maintenance Insurance [place] [employer] Advance Directives Documents on File Type Date Recorded Patient Dial Polisher Expl anation Personal Dial Polisher 12/03/2019 8:36 AM * Attempt Cardiopulmonary Resuscitation [...] capacity to make decision: Yes Care Teams Buttonholer Relationship Specialty Start Date End Date Grant Ac MD [address] [place] [id number] PCP - General Family Medicine 07/02/17
--- OUTSIDE RECORDS SUMMARY | 2024-12-17 14:28 | XMS_ITS | Encounter Summary ---
Author Organization [facility] Address [facility] [place] [address] Care Team Providers Care Needle Process Felt Goods Supervisor Name Role Phone Grant Ac MD Primary Care Provider [phone]- [phone] Encounter Details Date Type Department Care Team ([facility] st Contact Info) Description 10/16/2024 Results Follow-Up Primary Care at [address] [address] Jeni Butler, CODING COMPLIANCE AUDITOR [address] [place], [place] [id number] CT Head wo Contrast (Standard), Vitamin D, [...] place to sleep or slept in a custodial (including now)? No 04/12/2022 DH IPV Inpatient [...] 3:30 PM EST Office Visit Ophthalmology at [address] [phone] Umair Chavez MD [address] [place] [address] [place] [address] documented as of this encounter Results * Vitamin B12 (10/16/2024 10:18 AM EDT) Vitamin B12 746 232 - 1,245 pg/mL 10/16/2024 4:26 PM EDT [facility] Blood VENOUS BLOOD SPECIMEN / Unknown Venipuncture / Unknown 10/16/2024 10:18 AM EDT 10/16/2024 10:18 AM EDT us Jeni Butler CODING COMPLIANCE AUDITOR CHEMISTRY ORDERABLES Ivette l Result [facility] [address] [place] [address] documented in this encounter Visit Diagnoses Diagnosis Facial twitching- Primary Other facial nerve disorders Numbness Disturbance of skin sensation documented in this encounter Care Teams Needle Process Felt Goods Supervisor Relationship Specialty Start Date End Date Grant Ac MD [address] [place] [id number] PCP - General Family Medicine 07/02/17 documented as of this encounter
--- OUTSIDE RECORDS SUMMARY | 2024-12-17 14:28 | XMS_ITS | Encounter Summary ---
Author Organization [facility] Address One [facility] [place] [address] Care Team Providers Care Paint Line Supervisor Name Role Phone Grant Ac MD Primary Care Provider [phone]- [phone] Reason for Visit * Reason Comments Medication Refill Encounter Details Date Type Department Care Team ([facility] Contact Info) Description 08/27/2023 Refill Otolaryngology at [address] [phone] Ninfa Julian PA [address] [place] [address] [phone] Nasal obstruction; Chronic allergic rhinitis Social History [...] place to sleep or slept in a retirement (including now)? No 04/12/2022 DH IPV Inpatient [...] 3:30 PM EST Office Visit Ophthalmology at [address] [phone] Umair Chavez MD [address] [place] [address] [place] [address] documented as of this encounter Visit Diagnoses Diagnosis Nasal obstruction Other diseases of nasal cavity and sinuses Chronic allergic rhinitis Allergic rhinitis, cause unspecified documented in this encounter Additional Health Concerns Infection Onset Date Last Indicated Resolved Time Rule Out COVID-19 03/14/2024 03/14/2024 03/15/2024 12:01 AM EST documented as of this encounter Care Teams Paint Line Supervisor Relationship Specialty Start Date End Date Grant Ac MD [address] [place] [address] PCP - General Family Medicine 07/02/17 documented as of this encounter
== END 2024-12-17 14:27 | disposition home or self-care (01) ==
LOC: HO.HNS 13:00
PROVIDERS: PCP Student in an Organized Health Care Education/Training Program; Visit Provider Physician Assistant
DX: M50.90 Cervical disc disorder, unspecified, unspecified cervical region (principal); Z98.890 Other specified postprocedural states; M43.16 Spondylolisthesis, lumbar region
CPT/HCPCS: 99204

== ENCOUNTER 2024-12-17 12:59 | Outpatient (REF) | payer OTHER, SELFPAY | END 2024-12-17 13:00 | disposition home or self-care (01) | LOC: HO.HOSX 12:59 | PROVIDERS: PCP Student in an Organized Health Care Education/Training Program; Visit Provider Physician Assistant | DX: Z47.89 Encounter for other orthopedic aftercare (principal); M50.90 Cervical disc disorder, unspecified, unspecified cervical region; M43.16 Spondylolisthesis, lumbar region; Z98.890 Other specified postprocedural states | CPT/HCPCS: 99202 ==

== ENCOUNTER 2024-12-17 13:29 | Outpatient (REF) | payer OTHER, SELFPAY ==
--- NOTE | ~2024-12-17 | XR_ITS ---
EXAMINATION: XR LUMBOSACRAL SPINE CLINICAL INFORMATION: Z98.890 - Other specified postprocedural states COMPARISON: Correlated to MRI dated December 14, 2024. TECHNIQUE: AP and lateral views FINDINGS: Endplate sclerosis, marginal osteophyte formation, decreased intervertebral disc height and grade 1 retrolisthesis at L4-5. No lytic or blastic lesions. XR/XR lumbar spine 4V min IMPRESSION: Spondylosis resulting in grade 1 retrolisthesis L4-5. Superimposed acute inflammatory versus infectious process cannot be excluded. Electronically signed by: Javi Khan MD 12/17/2024 02:21 PM EDT
--- NOTE | ~2024-12-17 | XR_ITS ---
EXAMINATION: XR CERVICAL SPINE CLINICAL INFORMATION: M50.90 - Cervical disc disorder, unspecified, unspecified cervical region COMPARISON: October 06, 2012 x-rays is not available on PACS system. TECHNIQUE: Lateral views in neutral, flexion and extension position. AP view. FINDINGS: Status post anterior intervertebral body disc spacer placement C4-5 with arthrodesis demonstrated no gross malalignment in neutral or flexion nor extension position. No acute cortical disruption. No lytic or blastic lesions. Marginal osteophyte formation and decreased intervertebral disc height and endplate sclerosis C5-6 and C6-7 levels. Prevertebral soft tissues demonstrated no subcutaneous emphysema. Upper airways patent. Craniocervical junction is intact. XR/XR cervical spine 4V IMPRESSION: Status post arthrodesis and anterior intervertebral disc spacer placement C4-5 without acute fracture or listhesis nor instability. Spondylosis C5-6 and C6-7. Electronically signed by: Javi Khan MD 12/17/2024 02:24 PM EDT
== END 2024-12-17 13:30 | disposition home or self-care (01) ==
LOC: HO.XRAY 13:29
PROVIDERS: PCP Student in an Organized Health Care Education/Training Program; Visit Provider Physician Assistant
DX: M43.16 Spondylolisthesis, lumbar region (principal); M50.90 Cervical disc disorder, unspecified, unspecified cervical region; Z98.890 Other specified postprocedural states
CPT/HCPCS: 72050; 72110

== ENCOUNTER → 2024-12-17 13:35 | Outpatient (BNV) | payer OTHER, SELFPAY | PROVIDERS: PCP Student in an Organized Health Care Education/Training Program; Visit Provider Radiology Diagnostic Radiology | DX: M47.812 Spondylosis without myelopathy or radiculopathy, cervical region (principal); M43.16 Spondylolisthesis, lumbar region | CPT/HCPCS: 72050; 72110 ==

== ENCOUNTER 2024-12-21 10:53 | Outpatient (AMB) | payer OTHER, SELFPAY ==
[2024-12-21 11:02] VITALS: BP 140/78; PULSE 105; RESP 16; TEMP 36.6; O2SAT 98; BMI 35.7
--- NOTE | 2024-12-21 11:02 | A.OFFPC_ITS ---
Vital Signs 12/21/24 11:02 Height 5 ft 2.6 in Weight 199 lb 4 oz BMI 35.7 BP 140/78 H Blood Pressure Location Lt brachial Position Sitting Respiration 16 Pulse 105 H Pulse Source Pulse Oximeter Temp 97.9 F Temp Source Oral Pulse Oximetry (%) 98 Oxygen Delivery Method Room Air Intake Visit Reasons: ER follow up Intake Note: establish pcp and back pain lower back pain. 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 Chronic back pain: - History of L4-L5 and cervical spine rios rgeries with persistent pain despite conservative management. - Pain exacerbated by physical activity and not relieved by rest. - Recent emergency department visit due to increased pain severity. - reviewed MRI discussed with patient, chad cain next steps as far as Neurosurgery evaluation -she has an upcoming pain management kassi ointment Cervical disc disease: - Previous cervical disc surgery with on going symptoms. - Conservative management recommended by neurosurgery. Balance disorder: - Episodes of losing balance and falls, described as legs getting stuck. - No clear inciting events identified. Gastroesophageal reflux disease (GERD): - Symptoms include nausea and vomiting, possibly exacerbated by medication. - Managed with omeprazole. Viral upper respiratory infection: - Symptoms include chest congestion and cold-like symptoms. - Advised to increase vitamin C intake a nd use Tylenol for fever. Review of Systems - Musculoskeletal: Reports chronic back pain exacerbated by activity. - Neurological: Reports episodes of losi ng balance and falls. - Gastrointestinal: Reports nausea and v omiting, possibly related to medication. - Respiratory: Reports chest congestion and cold-like symptoms. 10-point ROS reviewed and negative excep t as noted in HPI Past Medical History - L4-L5 spinal surgery - Cervical spine surgery - History of multiple falls Health Maintenance Physical Exam General: Well-appearing, in no acute distress. Vital signs: Within normal limits. HEENT: Normocephalic, atraumatic. PERRLA, EOMI. Conjunctiva clear, sclera anicteric. Oropharynx clear, mucous membranes moist. TMs intact bilaterally. Neck: Supple, no lymphadenopathy, no thyromegaly, no JVD or carotid bruits. Cardiovascular: RRR, normal S1/S2, no murmurs, rubs, or gallops. Peripheral pulses 2+ and symmetric. No edema. Respiratory: Lungs clear to auscultation bilaterally, no wheezes, rales, or rhonchi. Normal effort. Abdomen: Soft, non-tender, non-distended. Normoactive bowel sounds. No hepatosplenomegaly, no masses. MSK: Full range of motion, no joint swelling or deformity. Normal gait. Skin: Warm, dry, intact. No rashes, lesions, or pallor. Neuro: Alert and oriented x3. Cranial nerves II-XII intact. Strength 5/5 throughout. Sensation intact. Reflexes 2+ symmetric. Normal coordination and gait. Psych: Appropriate mood and affect. Normal judgment and insight. Plan 1. Chronic Back Pain - Continue conservative management with pain management and physical therapy. - Consider surgical intervention if symp toms worsen. 2. Cervical Disc Disease - Follow neurosurgery's recommendation f or conservative management. 3. Balance Disorder - No specific intervention discussed. 4. Gastroesophageal Reflux Disease (Gerd ) - Continue omeprazole for management of symptoms. 5. Viral Upper Respiratory Infection - Increase vitamin C intake and use Tyle nol for fever management. Discussion Notes I discussed with the patient the importance of continuing conservative management for her chronic back pain and cervical disc disease, as recommended by neurosurgery. We also talked about the potential need for surgical intervention if her symptoms worsen. I advised her to manage her GERD symptoms with omeprazole and to increase vitamin C intake for her viral upper respiratory infection. We discussed the risks of long-term medication use and the importance of follow-up with pain management specialists. Patient was informed and verbally consented to the use of an ambient scribe for clinic note documentation during this visit. Patient Instructions - Continue taking omeprazole as prescrib ed for GERD. - Increase vitamin C intake and use Tyle nol for fever management. - Follow up with pain management special ists as advised. Total time spent caring for the patient today was 45 minutes. This includes time spent before the visit reviewing the chart, time spent documenting, and time spent reviewing laboratory results, diagnostic imaging, medications, performing a medically necessary evaluation, counseling on diagnoses, care co ordination, ordering appropriate tests, ordering appropriate medications, review of tests performed by other providers, reporting test results with the patient, [facility] Surgical History History of back surgery Family History Father Prostate cancer Mother Breast cancer Social [facility] Alcohol intake: current Alcohol intake frequency: does not drink Patient Tobacco Use Status: Current everyday Tobacco user Tobacco use type: Cigarette Cigarettes Per Day: 3 service: No Current occupational status: employed 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 1. Little interest or pleasure in doing things: several days 2. Feeling down, depressed, or hopeless: not at all 3. Trouble falling or staying asleep, or sleeping too much: more than half the days 4. Feeling tired or having little energy: nearly every day 5. Poor appetite or overeating: not at all 6. Feeling bad about yourself - or that you are a failure or have let yourself or your family down: not at all 7. Trouble concentrating on things, such as reading the newspaper or watching television: not at all 8. Moving or speaking so slowly that other people could have noticed. Or the opposite - being so fidgety or restless that you have been moving around a lot more than usual: not at all 9. Thoughts that you would be better off or of hurting yourself in some way: not at all Total score: 6 Depression Screening Interpretation: Positive Depression Screening Done: Yes 40241 - PHQ-9 Billing: Yes Source: Developed by Drs. Phu Sanders, Darcy Langley, Jasson Ricardo and colleagues, with an educational letha from [employer]. Thrive Questionnaire Date Thrive assessed: 11/30/24 I am a: Patient What is your living situation today?: I have a steady place to live Within the past 12 months, did the food you bought not last and you didn't have the money to get more?: Never true Within the past 12 months, did you worry whether your food would run out before you got money to buy more?: Never true Do you have trouble paying for medicines?: No Do you have trouble getting transportation to medical appointments?: No Do you have trouble paying your heating and electricity bill?: No Do you have trouble taking care of your child, family member or friend?: No Do you have trouble with day-to-day activities such as bathing, preparing meals, shopping, managing finances, etc.?: No Are you currently unemployed and looking for a job?: No Are you interested in more education?: No Please select the resources that you would like help with: None Currently or been in a relationship where the following occur: I choose not to answer THRIVE Score: 0 AUDIT C Alcohol Use Questionnaire (AUDIT-C) 1. How often do you have a drink containing alcohol?: Never 3. How often do you have six or more drinks on one occasion?: Never Total Score: 0 EUGENIO-7 AMB Questionnaire EUGENIO-7 Date EUGENIO - 7 assessed: 11/30/24 Feeling nervous, anxious, or on edge: 0 = Not at all Not being able to stop or control worryin = Not at all Worrying too much about different things: 0 = Not at all Trouble relaxin = Not at all Being so restless that it is hard to sit still: 0 = Not at all Becoming easily annoyed or irritable: 0 = Not at all Feeling afraid as if something awful might happen: 0 = Not at all Total EUGENIO-7 score (0-4 normal; 5-9 mild; 10-14 moderate; 15-21 severe): 0 Source: Developed by Drs. Phu Sanders, Darcy Langley, Jasson Ricardo and colleagues, with an educational letha from [employer]. Physical exam (Primary Care) Vital Signs: Last Vital Signs Temp 97.9 F 12/21/24 11:02 Pulse 105 H 12/21/24 11:02 Resp 16 12/21/24 11:02 BP 140/78 H 12/21/24 11:02 Pulse Ox 98 12/21/24 11:02 Oxygen Delivery Method Room Air 10/06/25 11:02 BMI result Body Mass Index 35.7 Tobacco/Smoking Status: Tobacco use Status Tobacco use date assessed 11/30/24 12/21/24 11:03 Patient Tobacco Use Status Current everyday Tobacco 12/21/24 11:03 Tobacco use type Cigarette 12/21/24 11:03 PHQ-9: PHQ-9 Score PHQ-9: Total score 6 12/21/24 11:09 Depression Screening Interpretation: Positive Thrive Assessment: Date of Thrive Assessment Date Thrive assessed 11/30/24 12/21/24 11:03 Currently or been in a relationship where the following occur: I choose not to answer Coding Level of Care Code Est Pt Level 4 (40015) Diagnoses Cervical disc disorder M50.90 Spondylolisthesis, lumbar region M43.16 Chronic lower back pain M54.50; G89.29 Balance disorder R26.89 GERD (gastroesophageal reflux disease) K21.9 Viral upper respiratory infection J06.9 Hypertension I10 Additional Codes PHQ-9 - 49347 - PHQ-9 Billing: Yes ([id number]) Assessment & Plan Assessment & Plan (1) Cervical disc disorder: Code(s): M50.90 - Cervical disc disorder, unspecified, unspecified cervical region Category: Medical (2) Spondylolisthesis, lumbar region: Code(s): M43.16 - Spondylolisthesis, lumbar region Category: Medical (3) Chronic lower back pain: Code(s): M54.50 - Low back pain, unspecified; G89.29 - Other chronic pain (4) Balance disorder: Code(s): R26.89 - Other abnormalities of gait and mobility (5) GERD (gastroesophageal reflux disease): Code(s): K21.9 - Gastro-esophageal reflux disease without esophagitis (6) Viral upper respiratory infection: Code(s): J06.9 - Acute upper respiratory infection, unspecified (7) Hypertension: Code(s): I10 - Essential (primary) hypertension Plan
--- OUTSIDE RECORDS SUMMARY | 2024-12-21 13:15 | XMS_ITS | Encounter Summary ---
Author Organization [facility] [place] [address] Care Team Providers Care Collection Systems Technician Name Role Phone Grant Ac MD Primary Care Provider [phone]- [phone] Encounter Details Date Type Department Care Team (Late Contact Info) Description 08/15/2021 Refill Primary Care at [address] [phone] Grant Ac MD [address] [place] [phone] Social History Tobacco Use Types Packs/Day [...] 3:30 PM EST Office Visit Ophthalmology at [facility] [address] [place] [address] Umair Chavez MD [address] [facility] [place] [address] documented as of this encounter Visit Diagnoses Not on filedocumented in this encounter Additional Health Concerns Infection Onset Date Last Indicated Resolved Time Rule Out Respiratory 08/16/2021 08/16/20212 022 1:13 AM EDT Rule Out COVID-19 08/16/2021 08/16/2021 08/17/2021 1:13 AM EDT Rule Out COVID-19 03/14/2024 03/14/2024 03/15/2024 12:01 AM EST documented as of this encounter Care Teams Collection Systems Technician Relationship Specialty Start Date End Date Grant Ac MD [address] [place] [id number] PCP - General Family Medicine 07/02/17 documented as of this encounter
--- OUTSIDE RECORDS SUMMARY | 2024-12-21 13:15 | XMS_ITS | Encounter Summary ---
Author Organization [facility] Address [facility] [place] [address] Care Team Providers Care Accounts Payable Assistant Name Role Phone Grant Ac MD Primary Care Provider +1- [phone] Reason for Visit * Reason Comments Medication Refill Encounter Details Date Type Department Care Team ([facility] Contact Info) Description 2022 Refill Otolaryngology at [address] [phone] Ninfa Julian PA [address] [place] [address] [phone] Nasal obstruction; Chronic allergic rhinitis Social History [...] a long term (including now)? No 04/12/2022 Comments No Sex and Gender Information Value Date Recorded Sex Assigned at Not on file Legal Sex Female 2:32 PM EDT Gender Identity Not on file Sexual Orientation Not on file documented as of this encounter Plan of Treatment Upcoming Encounters Date Type Department Care Team ([facility] st Contact Info) Description 02/01/2025 3:30 PM EST Office Visit Ophthalmology at [address] [phone] Umair Chavez MD [address] [place] [address] [place] [address] documented as of this encounter Visit Diagnoses Diagnosis Nasal obstruction Other diseases of nasal cavity and sinuses Chronic allergic rhinitis Allergic rhinitis, cause unspecified documented in this encounter Additional Health Concerns Infection Onset Date Last Indicated Resolved Time Rule Out COVID-19 03/14/2024 03/14/2024 03/15/2024 12:01 AM EST documented as of this encounter Care Teams Accounts Payable Assistant Relationship Specialty Start Date End Date Grant Ac MD [address] [place] [address] PCP - General Family Medicine 07/02/17 documented as of this encounter
--- OUTSIDE RECORDS SUMMARY | 2024-12-21 13:15 | XMS_ITS | Clinical Summary ---
Author Organization [facility] Address One [facility] [place] [address] Care Team Providers Care Blade Groover Name Role Phone Grant Ac MD Primary Care Provider +1- [phone] Allergies Active Allergy Reactions Criticality Noted Date Comments Lisinopril Other (See Comments) 02/28/2023 Cough Medications fluticasone propionate (Flonase) 50 mcg/actuation [place], SuspensionIndica tions:Acute non-recurrent frontal sinusitis 2 sprays [...] - Signed DPR Vinicio Gunn () permenant [phone] Problem Noted Date Diagnosed Date Right arm numbness 11/19/2023 Depression 08/30/2023 Lumbar disc herniation 11/28/2022 Snoring 05/11/2022 Nasal obstruction 05/11/2022 Chronic allergic rhinitis 05/11/2022 Frontal headache 05/11/2022 Herniation of lumbar intervertebral disc with ra diculopathy 01/08/2022 Radiculopathy of cervical region 08/17/2021 Numbness 06/16/2021 Pain of left sacroiliac joint 06/16/2021 Tendinitis of right rotator cuff 06/30/2020 jail 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 2019 Overview [...] Team Description 11/27/2024 Refill Primary Care at [address] [phone] Grant Ac MD Other chronic pain; Recurrent low back pain 11/16/2024 Refill Primary Care at [address] [phone] Grant Ac MD Other chronic pain; Recurrent low back pain 10/28/2024 Refill Primary Care at [address] [phone] Brian Horne PA Other chronic pain; Recurrent low back pain 10/23/2024 Telephone Primary Care at [address] [phone] Marcelle Lockhart LPN 10/19/2024 Refill Primary Care at [address] [phone] Grant Ac MD Other chronic pain; Recurrent low back pain; jail 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 10/17/2024 1:54 PM EDT - 10/17/2024 11:59 PM EDT Hospital Encounter MRI at [address] [phone] Jeni Butler APRN Slurred speech; Generalized weakness Discharge Disposition: Home 10/16/2024 10:30 AM EDT Laboratory Appointment Lab at [address] [address] Encounter for vitamin deficiency screening; Slurred speech; Generalized weakness; Vitamin D deficiency; Numbness; Facial twitching 10/16/2024 10:00 AM EDT - 10/16/2024 11:59 PM EDT Hospital Encounter CAT Scan at [address] [phone] Jeni Butler APRN Slurred speech; Generalized weakness Discharge Disposition: Home 10/16/2024 9:35 AM EDT Office Visit Primary Care at [address] [phone] Jeni Butler APRN Recurrent low back pain; Slurred speech; Facial twitching; Generalized weakness; Numbness; Encounter for vitamin deficiency screening 10/16/2024 Legacy Encounter Primary Care at [address] [phone] Jeni Butler APRN 10/16/2024 Results Follow-Up Primary Care at [address] [phone] Jeni Butler, MONTESSORI LEAD TEACHER CT Head wo Contrast (Standard), Vitamin D, 25-Hydroxy, Comprehensive metabolic panel Fasting required, MRI Brain wwo Contrast (Standard) 10/16/2024 Travel 10/05/2024 Telephone Primary Care at [address] [phone] Gali Carlson RN 10/04/2024 Refill Primary Care at [address] [phone] Grant Ac MD Other chronic pain; Recurrent low back pain 09/21/2024 Refill Primary Care at [address] [phone] Grant Ac MD Other chronic pain; Recurrent low back pain from Last 3 Months Immunizations Immunization Administration Dates Next Due Covid-19 Monovalent (Pfizer Comirnaty purple cap) 12yrs+ (0148-3808) 05/17/2020 Influenza (Flucelvax) Trival ent Preservative Free, Egg Free Madin [place] Canine Kidney 12/04/2024 Influenza Quadrivalent, Preservative Free [...] in a prison (including now)? No 04/12/2022 DH IPV Inpatient [...] 3:30 PM EST Office Visit Ophthalmology at [address] [address] Umair Chavez MD [address] [place] [address] [place] [address] Health Maintenance Due Date Last [...] history exists Medical Devices Implanted Type Area Ware Finisher Device Identifier Shelf Expiration Date Model / Serial / Lot Seala,Dura,Spi ne,Ext,5ml ([id number]) - [id number] Implanted:Qty: 1 on 04/21/2019 by Kunal Cruz MD at [facility] IMPLANTS DO NOT USE [employer] - [employer] LI [id number] / / [id number] Procedures Procedure Name Priority Date/Time Associated Diagnosis [...] exam HPV Routine 01/26/2021 11:18 AM EST MACHINE PRINTER CYTOLOGY FINAL REPORT Routine 01/26/2021 11:18 AM EST from Last 3 Months or Most Recently Relevant to Health Maintenance Results * MRI Brain wwo Contrast (Standard) (10/17/2024 2:56 PM EDT) WORKSTATION ID [id number] DH RAD Anatomical Region Laterality Modality Head [...] who have questions please contact the health resident care technician that requested your imaging first. Narrative 10/17/2024 4:31 PM EDT EXAMINATION: MRI [...] patients who have questions please contactthe health resident care technician that requested your imaging first. Jeni Mccormick Carrie WALTERS IMG MRI ORDERABLES Final Result * CT Head wo Contrast (Standard) (10/16/2024 10:37 AM EDT) [employer] WORKSTATION ID [id number] DH RAD Anatomical Region Laterality Modality Head [...] who have questions please contact the health resident care technician that requested your imaging first. Narrative 10/16/2024 10:39 AM EDT EXAMINATION: CT [...] patients who have questions please contactthe health resident care technician that requested your imaging first. Jeni Butler APRN IMG CT ORDERABLES Final R esult * Vitamin D, 25-Hydroxy (10/16/2024 10:18 AM EDT) Vitamin D Total 25 OH 23 21 - 100 ng/ml 10/16/2024 1:17 PM EDT [facility] Vitamin D Total 25 OH Interp Insufficient 10/16/2024 1:17 PM EDT [facility] Blood VENOUS BLOOD SPECIMEN / Unknown Venipuncture / Unknown 10/16/2024 10:18 AM EDT 10/16/2024 10:18 AM EDT Hypecal Jeni S Football Meister MONTESSORI LEAD TEACHER CHEMISTRY ORDERABLES Ivette l Result Performing Organization Address [facility]/ZIP Co de Phone Number [facility] [address] [place] [address] * Vitamin B12 (10/16/2024 10:18 AM EDT) Vitamin B12 746 232 - 1,245 pg/mL 10/16/2024 4:26 PM EDT [facility] Blood VENOUS BLOOD SPECIMEN / Unknown Venipuncture / Unknown 10/16/2024 10:18 AM EDT 10/16/2024 10:18 AM EDT us Jeni S Football Meister MONTESSORI LEAD TEACHER CHEMISTRY ORDERABLES Ivette l Result Performing Organization Address [facility] Co de Phone Number [facility] [address] [place] [address] * (ABNORMAL) Comprehensive metabolic panel Fasting required (10/16/2024 10:18 AM EDT) Glucose 91 65 - 99 mg/dL 10/16/2024 11:03 AM EDT [facility] Comment: Fasting Glucose Interpretive Criteria: Normal: 65-99 mg/dL Prediabetes: 100-125 mg/dL Consistent with Diabetes Mellitus: > or = 126 mg/dL Classification and Diagnosis of Diabetes: Standards of Care in Diabetes - 2022. Diabetes Care 2022; 46:S19. Fasting is defined as no caloric intake for at least 8 hours. Blood Urea Nitrogen 7(L) 8 - 18 mg/dL 10/16/2024 11:03 AM EDT [facility] Creatinine 0.48(L) 0.70 - 1.20 mg/dL 10/16/2024 11:03 AM EDT [facility] Sodium 139 135 - 145 mMol/L 10/16/2024 11:03 AM [facility] Potassium 4.4 3.5 - 5.0 mMol/L 10/16/2024 11:03 AM [facility] Chloride 98 98 - 107 mMol/L 10/16/2024 11:03 AM [facility] Carbon Dioxide 27 22 - 31 mMol/L 10/16/2024 11:03 AM [facility] Anion Gap 14 5 - 15 mMol/L 10/16/2024 11:03 AM [facility] Calcium 9.5 8.5 - 10.5 mg/dL 10/16/2024 11:03 AM [facility] Protein, Total 6.9 6.1 - 8.0 g/dL 10/16/2024 11:03 AM [facility] Albumin 4.1 3.2 - 5.2 g/dL 10/16/2024 11:03 AM [facility] Aspartate Aminotransferase 21 <=30 unit/L 10/16/2024 11:03 AM [facility] Alanine Aminotransferase 20 0 - 30 unit/L 10/16/2024 11:03 AM [facility] Alkaline Phosphatase 125(H) 35 - 105 unit/L 10/16/2024 11:03 AM [facility] Bilirubin, Total 0.3 <=1.3 mg/dL 10/16/2024 11:03 AM [facility] Est Glomerular Filtration Rate - Female 125 >=90 mL/min/1. 73 m 10/16/2024 11:03 AM [facility] Comment: This patient's estimated GFR [...] Fasting Status Yes 10/16/2024 11:03 AM EDT [facility] Blood VENOUS BLOOD SPECIMEN / Unknown Venipuncture / Unknown 10/16/2024 10:18 AM EDT 10/16/2024 10:18 AM EDT us Jeni S Butler MONTESSORI LEAD TEACHER CHEMISTRY ORDERABLES Ivette davida Result [facility] [address] [place] [address] * Lipid Panel (Reflex Direct LDL) (02/28/2023 10:19 AM EST) Cholesterol, Total 253 mg/dL [facility] Comment: Lower Risk: <200 mg/dL Average Risk: 200-239 mg/dL Higher Risk: >ks=617 mg/dL Triglyceride 194 mg/dL [facility] Comment: Average Risk/Lower Risk: <150 mg/dL Borderline High Risk: 150-199 mg/dL High Risk: 200-499 mg/dL Very High Risk: >jp=630 mg/dL HDL Cholesterol 48 mg/dL [facility] Comment: Males: Higher Risk: <40 mg/dL Females: Higher Risk: <50 mg/dL LDL Cholesterol 166 mg/dL [facility] Comment: Lowest Risk: <100 mg/dL Lower Risk: 100-129 mg/dL Borderline High Risk: 130-159 mg/dL High Risk: 160-189 mg/dL Very High Risk: >ab=236 mg/dL Cholesterol/HDL Ratio 5.3 ratio [facility] Lipid Interpretation See Note [facility] Comment: Lipid management should be guided by a patient s ASCVD risk, goals and preferences. ACC/AHA Guidelines recommend high intensity statin if clinical ASCVD or LDL greater than or equal to 190 mg/dL. http://tinyurl.com/GKP-YFO-Dhzfybwnv Adults aged 40-75 with LDL 70-189 mg/dL should have their 10 year ASCVD risk estimated with the ACC/AHA ASCVD risk panel cutter http://tools.acc.org/LFBKN-Sdgk-Ovtjlffyl/ Statin should be discussed if risk greater [...] CHEMISTRY ORDERABLES Final Result Performing Organization Address City/[facility]/ZIP Co de Phone Number [facility] [address] [place] [phone] * HPV (01/26/2021 11:18 AM EST) HPV16 [...] Comment Spec In Lab us Candace Garcia MONTESSORI LEAD TEACHER PATHOLOGY/CYTOLOGY ORDERAB LES Final Result Performing Organization Address [facility] Co de Phone Number [facility] [place] [address] * Nylon Operator Cytology Final Report (01/26/2021 11:18 AM EST) Nylon Operator Cytology Final Report [id number] Location: [facility] The signing pathologist has (i) examined the relevant preparation(s) for the specimen(s) and (ii) rendered or confirmed the diagnosis(es). . Nylon Operator Final DIAGNOSIS Normal Negative for intraepithelial lesion or malignancy (NILM). For consensus guidelines for the management of cervical cancer screening test results, please see: http://www.asccp. org . Electronically signed by: Ravindra RYAN(ASCP) Asuncion Mccall Verified: 02/10/2021 15:07 Evidence Custodian Performed at: -[facility] Dept. of Pathology, [place], [place] HPV RESULTS HPV16 (Result) Negative HPV18 [...] Clinical Genomics and Advanced Technology (CGAT) at [facility]. - Jose Carlos Bain, PhD, [facility], Director-CGAT STATEMENT OF ADEQUACY Specimen [...] Yes, history of previous abnormal Pap Prior MACHINE PRINTER Therapy: No Hist of HPV Vaccine: No ICD Diagnosis: Z12.4 Encounter for screening for malignant neoplasm of cervix . CLINICAL INFORMATION Clinical Data, Significant Therapy and Clinical Impression : _ This Pap Test has been evaluated with the assistance of the K-MOTION InteractivePrep Pap Test Imaging System. Note: The Pap test is a screening test for cervical cancer with an inherent false-negative rate dependent upon several variables. For further information please contact the [facility] Laboratory. Reference: Ruma MATT. Research And Evaluation Manager of Pap Smear Results. In: Cely BS, Conrad HH, ed. The Pap Smear. [place]: Jayson, 2002: 71-77. [facility] 01/26/2021 11:1 8 AM EST us Candace Willsonasya MONTESSORI LEAD TEACHER PATHOLOGY/CYTOLOGY ORDERAB LES Final Result [facility] [place] [place] [address] from Last 3 Months or Most Recently Relevant to Health Maintenance Insurance [place] [employer] Advance Directives Documents on File Type Date Recorded Patient Java Programming Professor Expl anation Personal Java Programming Professor 12/03/2019 8:36 AM * Attempt Cardiopulmonary Resuscitation [...] capacity to make decision: Yes Care Teams Blade Groover Relationship Specialty Start Date End Date Grant Ac MD [address] [place] [address] PCP - General Family Medicine 07/02/17
--- OUTSIDE RECORDS SUMMARY | 2024-12-21 13:15 | XMS_ITS | Encounter Summary ---
Author Organization [facility] [place] [address] Care Team Providers Care Bulk Station Agent Name Role Phone Grant Ac MD Primary Care Provider +1- [phone] Reason for Visit * Reason Onset Date Comments Medication Refill 02/10/2022 Encounter Details Date Type Department Care Team (Late Contact Info) Description 02/10/2022 Refill Primary Care at [address] [phone] Grant Ac MD [address] [place] [address] Social History Tobacco Use Types Packs/Day [...] Ophthalmology at [facility] [address] [place] [address] Umair Chavez MD [address] [facility] [place] [address] documented as of this encounter Visit Diagnoses Not on filedocumented in this encounter Additional Health Concerns Infection Onset Date Last Indicated Resolved Time Rule Out COVID-19 03/14/2024 03/14/2024 03/15/2024 12:01 AM EST documented as of this encounter Care Teams Bulk Station Agent Relationship Specialty Start Date End Date Grant Ac MD [address] [facility] [place] [address] PCP - General Family Medicine 07/02/17 documented as of this encounter
--- OUTSIDE RECORDS SUMMARY | 2024-12-21 13:15 | XMS_ITS | Encounter Summary ---
Author Organization [facility] Address [address] [facility] [place] [address] Care Team Providers Care Administrative Services Manager Name Role Phone Grant Ac MD Primary Care Provider +1- [phone] Reason for Visit * Reason Comments Medication Refill Encounter Details Date Type Department Care Team ([facility] Contact Info) Description 08/27/2023 Refill Otolaryngology at [address] [phone] Ninfa Julian PA [address] [place] [address] [phone] Nasal obstruction; Chronic allergic rhinitis Social History [...] place to sleep or slept in a jail (including now)? No 04/12/2022 DH IPV Inpatient [...] PM EST Office Visit Ophthalmology at [address] [phone] Umair Chavez MD [address] [place] [address] [place] [address] documented as of this encounter Visit Diagnoses Diagnosis Nasal obstruction Other diseases of nasal cavity and sinuses Chronic allergic rhinitis Allergic rhinitis, cause unspecified documented in this encounter Additional Health Concerns Infection Onset Date Last Indicated Resolved Time Rule Out COVID-19 03/14/2024 03/14/2024 03/15/2024 12:01 AM EST documented as of this encounter Care Teams Administrative Services Manager Relationship Specialty Start Date End Date Grant Ac MD [address] [place] [address] PCP - General Family Medicine 07/02/17 documented as of this encounter
--- OUTSIDE RECORDS SUMMARY | 2024-12-21 13:15 | XMS_ITS | Encounter Summary ---
Author Organization [facility] Address One [facility] [place] [address] Care Team Providers Care Meat Supervisor Name Role Phone Grant Ac MD Primary Care Provider +1- [phone] Reason for Visit * Reason Comments Medication Refill Encounter Details Date Type Department Care Team ([facility] Contact Info) Description 12/22/2022 Refill Primary Care at [address] [place] [phone] Grant Ac MD [address] [place] [address] [phone] Acute non-recurrent frontal sinusitis Social History Tobacco [...] 3:30 PM EST Office Visit Ophthalmology at [address] [phone] Umair Chavez MD [address] [place] [address] [place] [address] documented as of this encounter Visit Diagnoses Diagnosis Acute non-recurrent frontal sinusitis documented in this encounter Additional Health Concerns Infection Onset Date Last Indicated Resolved Time Rule Out COVID-19 03/14/2024 03/14/2024 03/15/2024 12:01 AM EST documented as of this encounter Care Teams Meat Supervisor Relationship Specialty Start Date End Date Grant Ac MD [address] [place] [address] [place] [address] PCP - General Family Medicine 07/02/17 documented as of this encounter
--- OUTSIDE RECORDS SUMMARY | 2024-12-21 13:15 | XMS_ITS | Encounter Summary ---
Author Organization [facility] Address One [facility] [place] [address] Care Team Providers Care Drafter Structural Name Role Phone Grant Ac MD Primary Care Provider +1- [phone] Encounter Details Date Type Department Care Team ([facility] st Contact Info) Description 10/16/2024 Results Follow-Up Primary Care at [address] [address] Jeni Butler, POWER PLANT OPERATIONS MANAGER [address] [place], [place] [phone] CT Head wo Contrast (Standard), Vitamin D, [...] place to sleep or slept in a halfway (including now)? No 04/12/2022 DH IPV Inpatient [...] 3:30 PM EST Office Visit Ophthalmology at [address] [phone] Umair Chavez MD [address] [place] [address] [place] [address] documented as of this encounter Results * Vitamin B12 (10/16/2024 10:18 AM EDT) Vitamin B12 746 232 - 1,245 pg/mL 10/16/2024 4:26 PM EDT [facility] Blood VENOUS BLOOD SPECIMEN / Unknown Venipuncture / Unknown 10/16/2024 10:18 AM EDT 10/16/2024 10:18 AM EDT us Jeni Butler POWER PLANT OPERATIONS MANAGER CHEMISTRY ORDERABLES Ivette l Result [facility] [address] [place] [address] documented in this encounter Visit Diagnoses Diagnosis Facial twitching- Primary Other facial nerve disorders Numbness Disturbance of skin sensation documented in this encounter Care Teams Drafter Structural Relationship Specialty Start Date End Date Grant Ac MD [address] [place] [address] PCP - General Family Medicine 07/02/17 documented as of this encounter
--- OUTSIDE RECORDS SUMMARY | 2024-12-21 13:15 | XMS_ITS | Encounter Summary ---
Author Organization [facility] Address One [facility] [place] [address] Care Team Providers Care Software Consultant Name Role Phone Grant Ac MD Primary Care Provider +1- [phone] Reason for Visit * Reason Comments Medication Refill Encounter Details Date Type Department Care Team ([facility] Contact Info) Description 04/09/2023 Refill Otolaryngology at [address] [phone] Ninfa Julian PA [address] [place] [address] [phone] Nasal obstruction; Chronic allergic rhinitis Social History [...] place to sleep or slept in a detention (including now)? No 04/12/2022 Comments No Sex [...] PM EST Office Visit Ophthalmology at [address] [phone] Umair Chavez MD [address] [place] [address] [place] [address] documented as of this encounter Visit Diagnoses Diagnosis Nasal obstruction Other diseases of nasal cavity and sinuses Chronic allergic rhinitis Allergic rhinitis, cause unspecified documented in this encounter Additional Health Concerns Infection Onset Date Last Indicated Resolved Time Rule Out COVID-19 03/14/2024 03/14/2024 03/15/2024 12:01 AM EST documented as of this encounter Care Teams Software Consultant Relationship Specialty Start Date End Date Grant Ac MD [address] [place] [address] PCP - General Family Medicine 07/02/17 documented as of this encounter
--- OUTSIDE RECORDS SUMMARY | 2024-12-21 13:15 | XMS_ITS | Encounter Summary ---
Author Organization [facility] [place] [address] Care Team Providers Care Dehydrating Press Operator Name Role Phone Grant Ac MD Primary Care Provider +1- [phone] Reason for Visit * Reason Onset Date Comments Neck And Arm Pain 09/09/2024 Encounter Details Date Type Department Care Team (Late st Contact Info) Description 09/09/2024 Nurse Triage Primary Care at [address] [place] [address] Seth Rodríguez RN Neck And Arm [...] EDT Left message to call back. [facility] Please send message for Team B nursing response, advise patient to be near phone with ringer and we will attempt to call back as soon as possible. * Telephone Encounter - Seth Rodríguez RN - 09/10/2024 1:49 PM EDT Copied from [facility] #[id number]. Topic: Generic Non-Symptom Based - Generic Call >> Sep 10, 2024 12:48 PM Osiel Christine wrote: Reason: patient calling back PCP: GRANT AC Reason for Call: patient is returning from nurse . Please call back with further assistance. * Telephone Encounter - Seth Rodríguze RN - 09/09/2024 5:22 PM EDT This [...] as possible. Message sent to patient via [employer]. * Telephone Encounter - Seth Rodríguez RN - 09/09/2024 5:22 PM EDT Appointment Request From: Ivonne Andrade With Provider: Grant Ac MD [Primary Care at [facility]] Preferred Date Range: 09/10/2024 - 09/14/2024 Preferred [...] Upcoming Encounters Date Type Department Care Team ([facility] st Contact Info) Description 02/01/2025 3:30 PM EST Office Visit Ophthalmology at [address] [phone] Umair Chavez MD [address] [place] [address] [place] [address] documented as of this encounter Visit Diagnoses Not on filedocumented in this encounter Care Teams Dehydrating Press Operator Relationship Specialty Start Date End Date Grant Ac MD [address] [place] [address] PCP - General Family Medicine 07/02/17 documented as of this encounter
--- OUTSIDE RECORDS SUMMARY | 2024-12-21 13:16 | XMS_ITS | Encounter Summary ---
Author Organization [facility] [place] [address] Care Team Providers Care Painter And Body Work Name Role Phone Grant Ac MD Primary Care Provider +1- [phone] Reason for Visit * Reason Onset Date Comments Medication Refill 01/03/2021 Encounter Details Date Type Department Care Team (Late Contact Info) Description 01/03/2021 Refill Primary Care at [address] [phone] Grant Ac MD [address] [place] [address] Low back pain Social History Tobacco [...] 3:30 PM EST Office Visit Ophthalmology at [address] [phone] Umair Chavez MD [address] [place] [address] [place] [address] documented as of this encounter Visit Diagnoses Diagnosis Low back pain Lumbago documented in this encounter Additional Health Concerns Infection Onset Date Last Indicated Resolved Time Rule Out Respiratory 08/16/2021 08/16/2021 022 1:13 AM EDT Rule Out COVID-19 08/16/2021 08/16/2021 08/17/2021 1:13 AM EDT Rule Out COVID-19 03/14/2024 03/14/2024 03/15/2024 12:01 AM EST documented as of this encounter Care Teams Painter And Body Work Relationship Specialty Start Date End Date Grant Ac MD [address] [place] [address] PCP - General Family Medicine 07/02/17 documented as of this encounter
--- OUTSIDE RECORDS SUMMARY | 2024-12-21 13:16 | XMS_ITS | Encounter Summary ---
Author Organization [facility] [place] [address] Care Team Providers Care Welder Oxyhydrogen Name Role Phone Grant Ac MD Primary Care Provider +1- [phone] Reason for Visit * Reason Onset Date Comments Medication Refill 06/23/2021 Encounter Details Date Type Department Care Team (Late Contact Info) Description 06/23/2021 Refill Primary Care at [address] [phone] Grant Ac MD [address] [place] [address] Social History Tobacco Use Types Packs/Day [...] 3:30 PM EST Office Visit Ophthalmology at [facility] [address] [place] [address] Umair Chavez MD 149 [facility] [place] [address] documented as of this encounter Visit Diagnoses Not on filedocumented in this encounter Additional Health Concerns Infection Onset Date Last Indicated Resolved Time Rule Out Respiratory 08/16/2021 08/16/202108/17/2 022 1:13 AM EDT Rule Out COVID-19 08/16/2021 08/16/2021 08/17/2021 1:13 AM EDT Rule Out COVID-19 03/14/2024 03/14/2024 03/15/2024 12:01 AM EST documented as of this encounter Care Teams Welder Oxyhydrogen Relationship Specialty Start Date End Date Grant Ac MD [address] [place] [address] [place] [address] PCP - General Family Medicine 07/02/17 documented as of this encounter
--- OUTSIDE RECORDS SUMMARY | 2024-12-21 13:16 | XMS_ITS | Encounter Summary ---
Author Organization [facility] Address One [facility] [place] [address] Care Team Providers Care Stock Car Driver Name Role Phone Grant Ac MD Primary Care Provider +1- [phone] Reason for Visit * Reason Comments Medication Refill Encounter Details Date Type Department Care Team ([facility] Contact Info) Description 06/04/2023 Refill Otolaryngology at [address] [phone] Ninfa Julian PA [address] [place] [address] [phone] Nasal obstruction; Chronic allergic rhinitis Social History [...] place to sleep or slept in a chcf (including now)? No 04/12/2022 DH IPV Inpatient [...] 3:30 PM EST Office Visit Ophthalmology at [address] [phone] Umair Chavez MD [address] [place] [address] [place] [address] documented as of this encounter Visit Diagnoses Diagnosis Nasal obstruction Other diseases of nasal cavity and sinuses Chronic allergic rhinitis Allergic rhinitis, cause unspecified documented in this encounter Additional Health Concerns Infection Onset Date Last Indicated Resolved Time Rule Out COVID-19 03/14/2024 03/14/2024 03/15/2024 12:01 AM EST documented as of this encounter Care Teams Stock Car Driver Relationship Specialty Start Date End Date Grant Ac MD [address] [place] [address] PCP - General Family Medicine 07/02/17 documented as of this encounter
== END 2024-12-21 11:28 | disposition home or self-care (01) ==
LOC: HO.HMCFMS 10:54
PROVIDERS: PCP Student in an Organized Health Care Education/Training Program; Visit Provider Student in an Organized Health Care Education/Training Program
DX: M50.90 Cervical disc disorder, unspecified, unspecified cervical region (principal); M43.16 Spondylolisthesis, lumbar region; M54.50 Low back pain, unspecified; G89.29 Other chronic pain; R26.89 Other abnormalities of gait and mobility; K21.9 Gastro-esophageal reflux disease without esophagitis; J06.9 Acute upper respiratory infection, unspecified; I10 Essential (primary) hypertension

== ENCOUNTER → 2024-12-21 10:53 | Outpatient (BNVA) | payer OTHER, SELFPAY | PROVIDERS: PCP Student in an Organized Health Care Education/Training Program; Visit Provider Student in an Organized Health Care Education/Training Program | DX: M43.16 Spondylolisthesis, lumbar region (principal); M50.90 Cervical disc disorder, unspecified, unspecified cervical region; R26.89 Other abnormalities of gait and mobility; K21.9 Gastro-esophageal reflux disease without esophagitis; J06.9 Acute upper respiratory infection, unspecified; M54.50 Low back pain, unspecified; I10 Essential (primary) hypertension; G89.29 Other chronic pain | CPT/HCPCS: 96127; 99212 ==

== ENCOUNTER 2025-01-01 16:28 | Outpatient (AMB) | payer OTHER, SELFPAY ==
[2025-01-01 16:31] VITALS: BP 137/75; PULSE 103; RESP 16; TEMP 36.5; O2SAT 99; BMI 36.1
--- NOTE | 2025-01-01 16:31 | A.OFFPC_ITS ---
Vital Signs 01/01/25 16:31 Height 5 ft 2.6 in Weight 201 lb 8 oz BMI 36.1 BP 137/75 Blood Pressure Location Rt brachial Position Sitting Respiration 16 Pulse 103 H Pulse Source Pulse Oximeter Temp 97.7 F Temp Source Oral Pulse Oximetry (%) 99 Oxygen Delivery Method Room Air Intake Visit Reasons: Back and neck pain Intake Note: establish pcp and back pain lower back pain. Feeder Operator Automatic Required: No Accompanied by: Self / Same As Patient Allergies No Known Allergies Allergy (Verified 12/14/24 12:08) Tobacco use date assessed: 01/01/25 Dental Screening Dental Screen Date: 01/01/25 Did you have a dental visit in the last 12 months?: No Did you have a dental problem in the last 6 months where you did not have access to dental care?: No Was dental information given to patient?: No HPI HPI Comments History of Present Illness Details Consent Patient was informed and verbally consented to the use of an ambient scribe for clinic note documentation during this visit. History of Present Illness The patient is a 39-year-old female presenting with chronic pain syndrome. Chronic pain syndrome: The patient reports worsening pain, with a history of disc herniation and spondylosis, and has undergone back surgery. The pain has been persistent, and she has been prescribed tramadol and hydrocodone, with hydrocodone providing more relief but causing concern due to its strength and potential side effects. She has an upcoming appointment with pain management on the and is considering a second opinion for potential back surgery. The patient has experienced urinary symptoms, needing to remind herself to urinate, but denies incontinence. She has a history of back surgery and has been taking tramadol for years without issues, but hydrocodone has caused respiratory concerns. 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 - Family: The patient has a and has placed her sister in charge of the restaurant during her absence. Review of Systems - Musculoskeletal: Reports chronic pain and muscle spasms. - Neurological: Reports needing to remin d herself to urinate, denies incontinence. - Respiratory: Reports difficulty catchi ng breath when taking hydrocodone. 10-point ROS reviewed and negative excep t as noted in HPI Past Medical History - Chronic pain syndrome - Disc herniation - Spondylosis - Post-supraspinatus surgery Health Maintenance Physical Exam General: Well-appearing, in no acute distress. Vital signs: Within normal limits. HEENT: Normocephalic, atraumatic. PERRLA, EOMI. Conjunctiva clear, sclera anicteric. Oropharynx clear, mucous membranes moist. TMs intact bilaterally. Neck: Supple, no lymphadenopathy, no thyromegaly, no JVD or carotid bruits. Cardiovascular: RRR, normal S1/S2, no murmurs, rubs, or gallops. Peripheral pulses 2+ and symmetric. No edema. Respiratory: Lungs clear to auscultation bilaterally, no wheezes, rales, or rhonchi. Normal effort. Abdomen: Soft, non-tender, non-distended. Normoactive bowel sounds. No hepatosplenomegaly, no masses. MSK: Full range of motion, no joint swelling or deformity. Normal gait. Skin: Warm, dry, intact. No rashes, lesions, or pallor. Neuro: Alert and oriented x3. Cranial nerves II-XII intact. Strength 5/5 throu ghout. Sensation intact. Reflexes 2+ symmetric. Normal coordination and gait. Psych: Appropriate mood and affect. Normal judgment and insight. Plan 1. Chronic Pain Syndrome - Continue tramadol 100 mg every 6 hours as needed for pain management until the pain management appointment on the . - Follow up with pain management for fur ther evaluation and management options. - Consideration of a second opinion for potential back surgery. Discussion Notes During the visit, I discussed with the patient the management of her chronic pain syndrome, emphasizing the importance of adhering to the prescribed tramadol regimen until her pain management appointment. We reviewed the risks associated with hydrocodone, including respiratory depression, and the patient expressed a preference to continue with tramadol due to previous positive experiences. I advised her to follow up with pain management and consider a second opinion for potential back surgery. Patient Instructions - Take tramadol 100 mg every 6 hours as needed for pain. - Follow up with pain management on the for further evaluation. - Consider seeking a second opinion for back surgery options. Medical Decision Making The patient's chronic pain syndrome is managed with tramadol, which she tolerates well. Hydrocodone was considered but poses a risk of respiratory depression, which the patient experienced. The plan includes continuing tramadol and consulting with pain management for further options. A second opinion for back surgery is also considered due to persistent symptoms and previous surgical history. Total time spent caring for the patient today was 30 minutes. This includes time spent before the visit reviewing the chart, time spent documenting, and time spent reviewing laboratory results, diagnostic imaging, medications, performing a medically necessary evaluation, counseling on diagnoses, care coordination. [facility] Medical History (Updated 12/22/24 @ 14:22 by Tootie Cole LPN) History of fall long-term prescription opiate use Chronic pain syndrome Lumbar disc herniation Cervical vertebral fusion Surgical History History of back surgery Family History Father Prostate cancer Mother Breast cancer Social History Housing: Condominium Alcohol intake: current Alcohol intake frequency: does not drink Patient Tobacco Use Status: Current everyday Tobacco user Tobacco use type: Cigarette Cigarettes Per Day: 3 service: No Current occupational status: employed Cognitive needs: Yes (walker) Hearing needs: No Vision needs: No Questionnaire Thrive Questionnaire Date Thrive assessed: 01/01/25 I am a: Patient What is your living situation today?: I have a steady place to live Within the past 12 months, did the food you bought not last and you didn't have the money to get more?: Never true Within the past 12 months, did you worry whether your food would run out before you got money to buy more?: Never true Do you have trouble paying for medicines?: No Do you have trouble getting transportation to medical appointments?: No Do you have trouble paying your heating and electricity bill?: No Do you have trouble taking care of your child, family member or friend?: No Do you have trouble with day-to-day activities such as bathing, preparing meals, shopping, managing finances, etc.?: No Are you currently unemployed and looking for a job?: No Are you interested in more education?: No Please select the resources that you would like help with: None Currently or been in a relationship where the following occur: I choose not to answer THRIVE Score: 0 AUDIT C Alcohol Use Questionnaire (AUDIT-C) 1. How often do you have a drink containing alcohol?: Never 3. How often do you have six or more drinks on one occasion?: Never Total Score: 0 EUGENIO-7 AMB Questionnaire EUGENIO-7 Date EUGENIO - 7 assessed: 01/01/25 Source: Developed by Drs. Phu Sanders, Darcy Langley, Jasson Ricardo and colleagues, with an educational letha from [employer]. Physical exam (Primary Care) Vital Signs: Last Vital Signs Temp 97.7 F 01/01/25 16:31 Pulse 103 H 01/01/25 16:31 Resp 16 01/01/25 16:31 BP 137/75 01/01/25 16:31 Pulse Ox 99 01/01/25 16:31 Oxygen Delivery Method Room Air 01/01/25 16:31 BMI result Body Mass Index 36.1 Tobacco/Smoking Status: Tobacco use Status Tobacco use date assessed 01/01/25 01/01/25 16:38 Patient Tobacco Use Status Current everyday Tobacco 01/01/25 16:38 Tobacco use type Cigarette 01/01/25 16:38 Thrive Assessment: Date of Thrive Assessment Date Thrive assessed 01/01/25 01/01/25 16:38 Currently or been in a relationship where the following occur: I choose not to answer Coding Level of Care Code Est Pt Level 3 (31981) Diagnoses Chronic pain syndrome G89.4 Lumbar disc herniation M51.26 Cervical disc disorder M50.90 Spondylolisthesis, lumbar region M43.16 Cervical vertebral fusion M43.22 History of back surgery Z98.890 Assessment & Plan Assessment & Plan (1) Chronic pain syndrome: Code(s): G89.4 - Chronic pain syndrome Category: Medical (2) Lumbar disc herniation: Code(s): M51.26 - Other intervertebral disc displacement, lumbar region Category: Medical (3) Cervical disc disorder: Code(s): M50.90 - Cervical disc disorder, unspecified, unspecified cervical region Category: Medical (4) Spondylolisthesis, lumbar region: Code(s): M43.16 - Spondylolisthesis, lumbar region Category: Medical (5) Cervical vertebral fusion: Code(s): M43.22 - Fusion of spine, cervical region Category: Medical (6) History of back surgery: Code(s): Z98.890 - Other specified postprocedural states Category: Medical Plan Medications: New tramadol 100 mg PO Q6H PRN 40 tabs 0RF pain G89.4 - Chronic pain syndrome, M43.16 - Spondylolisthesis, lumbar region, M51.26 - Other intervertebral disc displacement, lumbar region, Z98.890 - Other specified postprocedural states
--- OUTSIDE RECORDS SUMMARY | 2025-01-01 18:31 | XMS_ITS | Encounter Summary ---
Author Organization [facility] Address One [facility] [place] [address] Care Team Providers Care Char Filter Tank Tender Name Role Phone Grant Ac MD Primary Care Provider +1- [phone] Reason for Visit * Reason Comments Medication Refill Encounter Details Date Type Department Care Team ([facility] Contact Info) Description 2022 Refill Otolaryngology at [address] [phone] Ninfa Julian PA [address] [place] [address] [phone] Nasal obstruction; Chronic allergic rhinitis Social History [...] place to sleep or slept in a assisted (including now)? No 04/12/2022 Comments No Sex and Gender Information Value Date Recorded Sex Assigned at Not on file Legal Sex Female 2:32 PM EDT Gender Identity Not on file Sexual Orientation Not on file documented as of this encounter Plan of Treatment Upcoming Encounters Date Type Department Care Team ([facility] st Contact Info) Description 02/01/2025 3:30 PM EST Office Visit Ophthalmology at [address] [phone] Umair Chavez MD [address] [place] [address] [place] [address] documented as of this encounter Visit Diagnoses Diagnosis Nasal obstruction Other diseases of nasal cavity and sinuses Chronic allergic rhinitis Allergic rhinitis, cause unspecified documented in this encounter Additional Health Concerns Infection Onset Date Last Indicated Resolved Time Rule Out COVID-19 03/14/2024 03/14/2024 03/15/2024 12:01 AM EST documented as of this encounter Care Teams Char Filter Tank Tender Relationship Specialty Start Date End Date Grant Ac MD [address] [place] [address] PCP - General Family Medicine 07/02/17 documented as of this encounter
--- OUTSIDE RECORDS SUMMARY | 2025-01-01 18:31 | XMS_ITS | Encounter Summary ---
Author Organization [facility] [place] [address] Care Team Providers Care Dental Equipment Technician Name Role Phone Grant Ac MD Primary Care Provider +1- [phone] Encounter Details Date Type Department Care Team (Late Contact Info) Description 08/15/2021 Refill Primary Care at [address] [phone] Grant Ac MD [address] [place] [address] Social History Tobacco Use Types Packs/Day [...] 3:30 PM EST Office Visit Ophthalmology at [facility] [address] [place] [address] Umair Chavez MD 149 [facility] [place] [address] documented as of this encounter Visit Diagnoses Not on filedocumented in this encounter Additional Health Concerns Infection Onset Date Last Indicated Resolved Time Rule Out Respiratory 08/16/2021 08/16/20212 022 1:13 AM EDT Rule Out COVID-19 08/16/2021 08/16/2021 08/17/2021 1:13 AM EDT Rule Out COVID-19 03/14/2024 03/14/2024 03/15/2024 12:01 AM EST documented as of this encounter Care Teams Dental Equipment Technician Relationship Specialty Start Date End Date Grant Ac MD [address] [place] [address] PCP - General Family Medicine 07/02/17 documented as of this encounter
--- OUTSIDE RECORDS SUMMARY | 2025-01-01 18:31 | XMS_ITS | Encounter Summary ---
Author Organization [facility] [place] [address] Care Team Providers Care Employment Service Specialist Name Role Phone Grant Ac MD Primary Care Provider +1- [phone] Reason for Visit * Reason Onset Date Comments Medication Refill 02/10/2022 Encounter Details Date Type Department Care Team (Late Contact Info) Description 02/10/2022 Refill Primary Care at [address] [phone] Grant Ac MD [address] [place] [address] Social History Tobacco Use Types Packs/Day [...] EST Office Visit Ophthalmology at [facility] [address] [place] [address] Umair Chavez MD 149 [facility] [place] [address] documented as of this encounter Visit Diagnoses Not on filedocumented in this encounter Additional Health Concerns Infection Onset Date Last Indicated Resolved Time Rule Out COVID-19 03/14/2024 03/14/2024 03/15/2024 12:01 AM EST documented as of this encounter Care Teams Employment Service Specialist Relationship Specialty Start Date End Date Grant Ac MD [address] [place] [address] PCP - General Family Medicine 07/02/17 documented as of this encounter
--- OUTSIDE RECORDS SUMMARY | 2025-01-01 18:31 | XMS_ITS | Encounter Summary ---
Author Organization [facility] Address One [facility] [place] [address] Care Team Providers Care Daycare Teacher Name Role Phone Grant Ac MD Primary Care Provider +1- [phone] Reason for Visit * Reason Comments Medication Refill Encounter Details Date Type Department Care Team ([facility] Contact Info) Description 12/22/2022 Refill Primary Care at [address] [place] [phone] Grant Ac MD [address] [place] [address] [phone] Acute non-recurrent frontal sinusitis Social History Tobacco [...] in a custodial (including now)? No 04/12/2022 Comments No Sex and Gender Information Value Date Recorded Sex Assigned at Not on file Legal Sex Female 2:32 PM EDT Gender Identity Not on file Sexual Orientation Not on file documented as of this encounter Plan of Treatment Upcoming Encounters Date Type Department Care Team (Late st Contact Info) Description 02/01/2025 3:30 PM EST Office Visit Ophthalmology at [address] [phone] Umair hCavez MD [address] [place] [address] [place] [address] documented as of this encounter Visit Diagnoses Diagnosis Acute non-recurrent frontal sinusitis documented in this encounter Additional Health Concerns Infection Onset Date Last Indicated Resolved Time Rule Out COVID-19 03/14/2024 03/14/2024 03/15/2024 12:01 AM EST documented as of this encounter Care Teams Daycare Teacher Relationship Specialty Start Date End Date Grant Ac MD [address] [place] [address] [place] [address] PCP - General Family Medicine 07/02/17 documented as of this encounter
--- OUTSIDE RECORDS SUMMARY | 2025-01-01 18:31 | XMS_ITS | Encounter Summary ---
Author Organization [facility] Address One [facility] [place] [address] Care Team Providers Care Cognos Architect Name Role Phone Grant Ac MD Primary Care Provider +1- [phone] Reason for Visit * Reason Comments Medication Refill Encounter Details Date Type Department [facility] Description 04/09/2023 Refill Otolaryngology at [address] [phone] Ninfa Julian PA [address] [place] [address] [phone] Nasal obstruction; Chronic allergic rhinitis Social History [...] place to sleep or slept in a mcc (including now)? No 04/12/2022 Comments No Sex [...] PM EST Office Visit Ophthalmology at [address] [phone] Umair Chavez MD [address] [place] [address] [place] [address] documented as of this encounter Visit Diagnoses Diagnosis Nasal obstruction Other diseases of nasal cavity and sinuses Chronic allergic rhinitis Allergic rhinitis, cause unspecified documented in this encounter Additional Health Concerns Infection Onset Date Last Indicated Resolved Time Rule Out COVID-19 03/14/2024 03/14/2024 03/15/2024 12:01 AM EST documented as of this encounter Care Teams Cognos Architect Relationship Specialty Start Date End Date Grant Ac MD [address] [place] [address] PCP - General Family Medicine 07/02/17 documented as of this encounter
--- OUTSIDE RECORDS SUMMARY | 2025-01-01 18:31 | XMS_ITS | Encounter Summary ---
Author Organization [facility] Address One [facility] [place] [address] Care Team Providers Care Home School Teacher Name Role Phone Grant Ac MD Primary Care Provider +1- [phone] Reason for Visit * Reason Comments Medication Refill Encounter Details Date Type Department Care Team ([facility] Contact Info) Description 06/04/2023 Refill Otolaryngology at [address] [phone] Ninfa Julian PA [address] [place] [address] [phone] Nasal obstruction; Chronic allergic rhinitis Social History [...] PM EST Office Visit Ophthalmology at [address] [phone] Umair Chavez MD [address] [place] [address] [place] [address] documented as of this encounter Visit Diagnoses Diagnosis Nasal obstruction Other diseases of nasal cavity and sinuses Chronic allergic rhinitis Allergic rhinitis, cause unspecified documented in this encounter Additional Health Concerns Infection Onset Date Last Indicated Resolved Time Rule Out COVID-19 03/14/2024 03/14/2024 03/15/2024 12:01 AM EST documented as of this encounter Care Teams Home School Teacher Relationship Specialty Start Date End Date Grant Ac MD [address] [place] [address] PCP - General Family Medicine 07/02/17 documented as of this encounter
--- OUTSIDE RECORDS SUMMARY | 2025-01-01 18:31 | XMS_ITS | Encounter Summary ---
Author Organization Formerly [facility] [place] [address] Care Team Providers Care Professor Of Economics Name Role Phone Grant Ac MD Primary Care Provider +1- [phone] Reason for Visit * Reason Onset Date Comments Medication Refill 01/03/2021 Encounter Details Date Type Department Care Team (Late Contact Info) Description 01/03/2021 Refill Primary Care at [address] [phone] Grant Ac MD [address] [place] [address] Low back pain Social History Tobacco [...] PM EST Office Visit Ophthalmology at [address] [phone] Umair Chavez MD [address] [place] [address] [place] [address] documented as of this encounter Visit Diagnoses Diagnosis Low back pain Lumbago documented in this encounter Additional Health Concerns Infection Onset Date Last Indicated Resolved Time Rule Out Respiratory 08/16/2021 08/16/2021 022 1:13 AM EDT Rule Out COVID-19 08/16/2021 08/16/2021 08/17/2021 1:13 AM EDT Rule Out COVID-19 03/14/2024 03/14/2024 03/15/2024 12:01 AM EST documented as of this encounter Care Teams Professor Of Economics Relationship Specialty Start Date End Date Grant Ac MD [address] [place] [address] PCP - General Family Medicine 07/02/17 documented as of this encounter
--- OUTSIDE RECORDS SUMMARY | 2025-01-01 18:31 | XMS_ITS | Encounter Summary ---
Author Organization [facility] [place] [address] Care Team Providers Care Vending Machine Host/Hostess Name Role Phone Grant Ac MD Primary Care Provider +1- [phone] Reason for Visit * Reason Onset Date Comments Neck And Arm Pain 09/09/2024 Encounter Details Date Type Department Care Team (Late st Contact Info) Description 09/09/2024 Nurse Triage Primary Care at [address] [place] [phone] Seth Rodríguez RN Neck And Arm [...] place to sleep or slept in a alf (including now)? No 04/12/2022 DH IPV Inpatient [...] PM EDT Left message to call back. [facility] Please send message for Team B nursing response, advise patient to be near phone with ringer and we will attempt to call back as soon as possible. * Telephone Encounter - Seth Rodríguez RN - 09/10/2024 1:49 PM EDT Copied from [facility] #[id number]. Topic: Generic Non-Symptom Based - Generic Call [...] as possible. Message sent to patient via Mbite. * Telephone Encounter - Seth Rodríguez RN - 09/09/2024 5:22 PM EDT Appointment Request From: Ivonne Andrade With Provider: Grant Ac MD [[facility] at [facility]] Preferred Date Range: 09/10/2024 - 09/14/2024 Preferred [...] Upcoming Encounters Date Type Department Care Team ([facility] st Contact Info) Description 02/01/2025 3:30 PM EST Office Visit Ophthalmology at [address] [phone] Umair Chavez MD [address] [place] [address] [place] [address] documented as of this encounter Visit Diagnoses Not on filedocumented in this encounter Care Teams Vending Machine Host/Hostess Relationship Specialty Start Date End Date Grant Ac MD [address] [place] [address] PCP - General Family Medicine 07/02/17 documented as of this encounter
--- OUTSIDE RECORDS SUMMARY | 2025-01-01 18:31 | XMS_ITS | Encounter Summary ---
Author Organization Formerly [facility] Address One [facility] [place] [address] Care Team Providers Care Panel Lay Up Worker Name Role Phone Grant Ac MD Primary Care Provider +1- [phone] Reason for Visit * Reason Comments Medication Refill Encounter Details Date Type Department Care Team ([facility] Contact Info) Description 08/27/2023 Refill Otolaryngology at [address] [phone] Ninfa Julian PA [address] [place] [address] [phone] Nasal obstruction; Chronic allergic rhinitis Social History [...] 3:30 PM EST Office Visit Ophthalmology at [address] [phone] Umair Chavez MD [address] [place] [address] [place] [address] documented as of this encounter Visit Diagnoses Diagnosis Nasal obstruction Other diseases of nasal cavity and sinuses Chronic allergic rhinitis Allergic rhinitis, cause unspecified documented in this encounter Additional Health Concerns Infection Onset Date Last Indicated Resolved Time Rule Out COVID-19 03/14/2024 03/14/2024 03/15/2024 12:01 AM EST documented as of this encounter Care Teams Panel Lay Up Worker Relationship Specialty Start Date End Date Grant Ac MD [address] [place] [address] PCP - General Family Medicine 07/02/17 documented as of this encounter
--- OUTSIDE RECORDS SUMMARY | 2025-01-01 18:31 | XMS_ITS | Encounter Summary ---
Author Organization [facility] [place] [address] Care Team Providers Care Seismic Plotter Name Role Phone Grant Ac MD Primary Care Provider +1- [phone] Reason for Visit * Reason Onset Date Comments Medication Refill 06/23/2021 Encounter Details Date Type Department Care Team (Late Contact Info) Description 06/23/2021 Refill Primary Care at [address] [phone] Grant Ac MD [address] [place] [address] Social History Tobacco Use Types Packs/Day [...] 3:30 PM EST Office Visit Ophthalmology at [facility] [address] [place] [address] Umair Chavez MD [address] [facility] [place] [address] documented as of this encounter Visit Diagnoses Not on filedocumented in this encounter Additional Health Concerns Infection Onset Date Last Indicated Resolved Time Rule Out Respiratory 08/16/2021 08/16/202108/17/2 022 1:13 AM EDT Rule Out COVID-19 08/16/2021 08/16/2021 08/17/2021 1:13 AM EDT Rule Out COVID-19 03/14/2024 03/14/2024 03/15/2024 12:01 AM EST documented as of this encounter Care Teams Seismic Plotter Relationship Specialty Start Date End Date Grant Ac MD [address] [place] [address] [place] [address] PCP - General Family Medicine 07/02/17 documented as of this encounter
--- OUTSIDE RECORDS SUMMARY | 2025-01-01 18:31 | XMS_ITS | Clinical Summary ---
Author Organization [facility] Address One [facility] [place] [address] Care Team Providers Care Field Tech Name Role Phone Grant Ac MD Primary Care Provider +1- [phone] Allergies Active Allergy Reactions Criticality Noted Date Comments Lisinopril Other (See Comments) 02/28/2023 Cough Medications fluticasone propionate (Flonase) 50 mcg/actuation Van Lear, SuspensionIndica tions:Acute non-recurrent frontal sinusitis 2 sprays [...] - Signed DPR Vinicio Gunn () permenant [phone] Problem Noted Date Diagnosed Date Right arm numbness 11/19/2023 Depression 08/30/2023 Lumbar disc herniation 11/28/2022 Snoring 05/11/2022 Nasal obstruction 05/11/2022 Chronic allergic rhinitis 05/11/2022 Frontal headache 05/11/2022 Herniation of lumbar intervertebral disc with ra diculopathy 01/08/2022 Radiculopathy of cervical region 08/17/2021 Numbness 06/16/2021 Pain of left sacroiliac joint 06/16/2021 Tendinitis of right rotator cuff 06/30/2020 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 2019 Overview [...] Team Description 11/27/2024 Refill Primary Care at [address] [phone] Grant Ac MD Other chronic pain; Recurrent low back pain 11/16/2024 Refill Primary Care at [address] [phone] Grant Ac MD Other chronic pain; Recurrent low back pain 10/28/2024 Refill Primary Care at [address] [phone] Brian Horne PA Other chronic pain; Recurrent low back pain 10/23/2024 Telephone Primary Care at [address] [phone] Marcelle Lockhart LPN 10/19/2024 Refill Primary Care at [address] [phone] Grant Ac MD Other chronic pain; Recurrent low back pain; FPC 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 10/17/2024 1:54 PM EDT - 10/17/2024 11:59 PM EDT Hospital Encounter MRI at [address] [phone] Jeni Butler APRN Slurred speech; Generalized weakness Discharge Disposition: Home 10/16/2024 10:30 AM EDT Laboratory Appointment Lab at [address] [phone] Encounter for vitamin deficiency screening; Slurred speech; Generalized weakness; Vitamin D deficiency; Numbness; Facial twitching 10/16/2024 10:00 AM EDT - 10/16/2024 11:59 PM EDT Hospital Encounter CAT Scan at [address] [phone] Jeni Butler APRN Slurred speech; Generalized weakness Discharge Disposition: Home 10/16/2024 9:35 AM EDT Office Visit Primary Care at [address] [phone] Jeni Butler APRN Recurrent low back pain; Slurred speech; Facial twitching; Generalized weakness; Numbness; Encounter for vitamin deficiency screening 10/16/2024 Legacy Encounter Primary Care at [address] [phone] Jeni Butler APRN 10/16/2024 Results Follow-Up Primary Care at [address] [phone] Jeni Butler, MERINGUER CT Head wo Contrast (Standard), Vitamin D, 25-Hydroxy, Comprehensive metabolic panel Fasting required, MRI Brain wwo Contrast (Standard) 10/16/2024 Travel 10/05/2024 Telephone Primary Care at [address] [phone] Gali Carlson RN 10/04/2024 Refill Primary Care at [address] [phone] Grant Ac MD Other chronic pain; Recurrent low back pain from Last 3 Months Immunizations Immunization Administration Dates Next Due Covid-19 Monovalent (Pfizer Comirnaty purple cap) 12yrs+ (2112-1093) 05/17/2020 Influenza (Flucelvax) Trival ent Preservative Free, Egg Free Madin Liane Canine Kidney 12/04/2024 Influenza Quadrivalent, Preservative Free 2022,03/13/2019 Influenza Trivalent, Preservative Free ,12/26/2017 Pneumococcal 20-Valent Conjugate (Prevnar 20) Pneumococcal 23-Valent [...] Upcoming Encounters Date Type Department Care Team ([facility] st Contact Info) Description 02/01/2025 3:30 PM EST Office Visit Ophthalmology at [address] [phone] Umair Chavez MD [address] [facility] [place] [address] Health Maintenance Due Date Last Done Comments HIV screen 2004 Hepatitis C Screening 2004 Hepatitis B vaccine (0-59 yr s) and Risk (1) 2005 Covid-19 Vaccine ( - 2024-2 6 season) 2024 06/15/2020, 05/17/2020 HPV test 01/26/2026 01/26/2021 PAP Smear 01/26/2026 01/26/2021 Diabetes Screening (HgbA1C o r Glucose) 10/17/2027 10/16/2024, 03/14/2024, 03/13/2024, Additional history exists Lipid Screening 02/29/2028 02/28/2023 Tetanus/Diphtheria/Pertussis Vaccines (2 - Td or Tdap) 10/10/2030 10/10/2020, 12/30/2017 Pneumococcal Vaccine: At-Ris k 5-49yrs Completed 01/30/2023, 10/10/2020 Influenza (Flu) vaccine Completed 12/05/19, 01/30/2023, 01/16/2022, Additional history exists Medical Devices Implanted Type Area Fire Range Technician Device Identifier Shelf Expiration Date Model / Serial / Lot Seala,Dura,Spi ne,Ext,5ml ([id number]) - [id number] Implanted:Qty: 1 on 04/21/2019 by Kunal Cruz MD at [facility] IMPLANTS DO NOT USE Sovi - [id number] / / [id number] Procedures Procedure Name Priority Date/Time Associated Diagnosis [...] exam HPV Routine 01/26/2021 11:18 AM EST STAMPING MILL TENDER CYTOLOGY FINAL REPORT Routine 01/26/2021 11:18 AM EST from Last 3 Months or Most Recently Relevant to Health Maintenance Results * MRI Brain wwo Contrast (Standard) (10/17/2024 2:56 PM EDT) WORKSTATION ID [id number] DH RAD Anatomical Region Laterality Modality Head [...] who have questions please contact the health manager home healthcare that requested your imaging first. Electronically signed by: ISAI INGRAM MD, [facility] [place] ([phone]), at 10/17/2024 4:31 PM Narrative 10/17/2024 4:31 [...] patients who have questions please contactthe health manager home healthcare that requested your imaging first. Electronically signed by: ISAI INGRAM MD, [facility]([phone]), at 10/17/2024 4:31 PM Jeni Butler MERINGUER IM MRI ORDERABLES Final Result * CT Head wo Contrast (Standard) (10/16/2024 10:37 AM EDT) [employer] WORKSTATION ID [id number] DH RAD Anatomical Region Laterality Modality Head [...] who have questions please contact the health manager home healthcare that requested your imaging first. Electronically signed by: ISAI INGRAM MD, [facility] ([phone]), at 10/16/2024 10:39 AM Narrative 10/16/2024 10:39 [...] patients who have questions please contactthe health manager home healthcare that requested your imaging first. Electronically signed by: ISAI INGRAM MD, [facility] [place]([phone]), at 10/16/2024 10:39 AM Jeni Butler APRN IMG CT ORDERABLES Final R esult * Vitamin D, 25-Hydroxy (10/16/2024 10:18 AM EDT) Vitamin D Total 25 OH 23 21 - 100 ng/ml 10/16/2024 1:17 PM EDT [facility] Vitamin D Total 25 OH Interp Insufficient 10/16/2024 1:17 PM EDT [facility] Blood VENOUS BLOOD SPECIMEN / Unknown Venipuncture / Unknown 10/16/2024 10:18 AM EDT 10/16/2024 10:18 AM EDT us Jeni S Butler MERINGUER CHEMISTRY ORDERABLES Ivette l Result Performing Organization Address City/[facility]/ZIP Co de Phone Number [facility] [address] [place] [address] * Vitamin B12 (10/16/2024 10:18 AM EDT) Vitamin B12 746 232 - 1,245 pg/mL 10/16/2024 4:26 PM EDT [facility] Blood VENOUS BLOOD SPECIMEN / Unknown Venipuncture / Unknown 10/16/2024 10:18 AM EDT 10/16/2024 10:18 AM EDT us Jeni S Butler MERINGUER CHEMISTRY ORDERABLES Ivette l Result Performing Organization Address [facility] Co de Phone Number [facility] [address] [place] [address] * (ABNORMAL) Comprehensive metabolic panel Fasting required (10/16/2024 10:18 AM EDT) Glucose 91 65 - 99 mg/dL 10/16/2024 11:03 AM EDT [facility] Comment: Fasting Glucose Interpretive Criteria: Normal: 65-99 mg/dL Prediabetes: 100-125 mg/dL Consistent with Diabetes Mellitus: > or = 126 mg/dL Classification and Diagnosis of Diabetes: Standards of Care in Diabetes - 2022. Diabetes Care 202; 46:S19. Fasting is defined as no caloric intake for at least 8 hours. Blood Urea Nitrogen 7(L) 8 - 18 mg/dL 10/16/2024 11:03 AM EDT [facility] Creatinine 0.48(L) 0.70 - 1.20 mg/dL 10/16/2024 11:03 AM EDT [facility] Sodium 139 135 - 145 mMol/L 10/16/2024 11:03 AM EDT [facility] Potassium 4.4 3.5 - 5.0 mMol/L 10/16/2024 11:03 AM EDT [facility] Chloride 98 98 - 107 mMol/L 10/16/2024 11:03 AM [facility] Carbon Dioxide 27 22 - 31 mMol/L 10/16/2024 11:03 AM [facility] Anion Gap 14 5 - 15 mMol/L 10/16/2024 11:03 AM [facility] Calcium 9.5 8.5 - 10.5 mg/dL 10/16/2024 11:03 AM [facility] Protein, Total 6.9 6.1 - 8.0 g/dL 10/16/2024 11:03 AM [facility] Albumin 4.1 3.2 - 5.2 g/dL 10/16/2024 11:03 AM [facility] Aspartate Aminotransferase 21 <=30 unit/L 10/16/2024 11:03 AM [facility] Alanine Aminotransferase 20 0 - 30 unit/L 10/16/2024 11:03 AM [facility] Alkaline Phosphatase 125(H) 35 - 105 unit/L 10/16/2024 11:03 AM [facility] Bilirubin, Total 0.3 <=1.3 mg/dL 10/16/2024 11:03 AM [facility] Est Glomerular Filtration Rate - Female 125 >=90 mL/min/1. 73 m 10/16/2024 11:03 AM [facility] Comment: This patient's estimated GFR was [...] Foundation Fasting Status Yes 10/16/2024 11:03 AM [facility] Blood VENOUS BLOOD SPECIMEN / Unknown Venipuncture / Unknown 10/16/2024 10:18 AM EDT 10/16/2024 10:18 AM EDT us Jeni S Carrie WALTERS CHEMISTRY ORDERABLES Ivette higuera Result [facility] [address] [place] [address] * Lipid Panel (Reflex Direct LDL) (02/28/2023 10:19 AM EST) Cholesterol, Total 253 mg/dL [facility] Comment: Lower Risk: <200 mg/dL Average Risk: 200-239 mg/dL Higher Risk: >sg=284 mg/dL Triglyceride 194 mg/dL [facility] Comment: Average Risk/Lower Risk: <150 mg/dL Borderline High Risk: 150-199 mg/dL High Risk: 200-499 mg/dL Very High Risk: >yx=917 mg/dL HDL Cholesterol 48 mg/dL [facility] Comment: Males: Higher Risk: <40 mg/dL Females: Higher Risk: <50 mg/dL LDL Cholesterol 166 mg/dL [facility] Comment: Lowest Risk: <100 mg/dL Lower Risk: 100-129 mg/dL Borderline High Risk: 130-159 mg/dL High Risk: 160-189 mg/dL Very High Risk: >zm=595 mg/dL Cholesterol/HDL Ratio 5.3 ratio [facility] Lipid Interpretation See Note [facility] Comment: Lipid management should be guided by a patient s ASCVD risk, goals and preferences. ACC/AHA Guidelines recommend high intensity statin if clinical ASCVD or LDL greater than or equal to 190 mg/dL. http://Covercakeurl.com/ZEG-DVU-Vrqnpxcay Adults aged 40-75 with LDL 70-189 mg/dL should have their 10 year ASCVD risk estimated with the ACC/AHA ASCVD risk construction job cost estimator http://tools.acc.org/YUONY-Wlvs-Yvwhzibjn/ Statin should be discussed if risk greater [...] CHEMISTRY ORDERABLES Final Result Performing Organization Address City/[facility] Co de Phone Number [facility] [address] [place] [address] * HPV (01/26/2021 11:18 AM EST) HPV16 NEGATIVE NEGATIVE [facility] HPV 18 NEGATIVE NEGATIVE [facility] HPV Other HR NEGATIVE NEGATIVE [facility] HPV Interpretation See Comment [facility] Comment: NEGATIVE for high-risk HPV [...] Narrative Resulting Agency Comment Spec In Lab Candace Garcia APRN PATHOLOGY/CYTOLOGY ORDERAB LES Final Result Performing Organization Address [facility] Co de Phone Number [facility] [place] [address] * Data Systems Analyst Cytology Final Report (01/26/2021 11:18 AM EST) Data Systems Analyst Cytology Final Report [id number] Location: [facility] The signing pathologist has (i) examined the relevant preparation(s) for the specimen(s) and (ii) rendered or confirmed the diagnosis(es). . Data Systems Analyst Final DIAGNOSIS Normal Negative for intraepithelial lesion or malignancy (NILM). For consensus guidelines for the management of cervical cancer screening test results, please see: http://www.asccp. org . Electronically signed by: Ravindra RYAN(ASCP)Asuncion Verified: 02/10/2021 15:07 Ocean Freight Agent Performed at: -[facility] [place], [place], [place] HPV RESULTS HPV16 (Result) Negative HPV18 [...] Clinical Genomics and Advanced Technology (CGAT) at [facility] - Jose Carlos Bain, PhD, HCLD, Director-[facility] STATEMENT OF ADEQUACY Specimen submitted is satisfactory [...] Yes, history of previous abnormal Pap Prior STAMPING MILL TENDER Therapy: No Hist of HPV Vaccine: No ICD Diagnosis: Z12.4 Encounter for screening for malignant neoplasm of cervix . CLINICAL INFORMATION Clinical Data, Significant Therapy and Clinical Impression : _ This Pap Test has been evaluated with the assistance of the Vator.TVPrep Pap Test Imaging System. Note: The Pap test is a screening test for cervical cancer with an inherent false-negative rate dependent upon several variables. For further information please contact the [facility] [place]. Reference: Ruma MATT. Pediatrics Physician of Pap Smear Results. In: Cely BS, Conrad HH, ed. The Pap Smear. [place]: Jayson, 2002: 71-77. [facility] 01/26/2021 11:1 8 AM EST Candace Gacria APRN PATHOLOGY/CYTOLOGY ORDERAB LES Final Result [facility] [place] [address] from Last 3 Months or Most Recently Relevant to Health Maintenance Insurance [place] [employer] MEDICAID Advance Directives Documents on File Type Date Recorded Patient Rn Urology Expl anation Personal Rn Urology 12/03/2019 8:36 AM * Attempt Cardiopulmonary Resuscitation [...] capacity to make decision: Yes Care Teams Field Tech Relationship Specialty Start Date End Date Grant Ac MD [address] [place] [address] PCP - General Family Medicine 07/02/17
== END 2025-01-01 16:58 | disposition home or self-care (01) ==
LOC: HO.HMCFMS 16:29
PROVIDERS: PCP Student in an Organized Health Care Education/Training Program; Visit Provider Student in an Organized Health Care Education/Training Program
DX: G89.4 Chronic pain syndrome (principal); M51.26 Other intervertebral disc displacement, lumbar region; M50.90 Cervical disc disorder, unspecified, unspecified cervical region; M43.16 Spondylolisthesis, lumbar region; M43.22 Fusion of spine, cervical region; Z98.890 Other specified postprocedural states

== ENCOUNTER → 2025-01-01 16:28 | Outpatient (BNVA) | payer OTHER, SELFPAY | PROVIDERS: PCP Student in an Organized Health Care Education/Training Program; Visit Provider Student in an Organized Health Care Education/Training Program | DX: M51.26 Other intervertebral disc displacement, lumbar region (principal); M50.90 Cervical disc disorder, unspecified, unspecified cervical region; M43.16 Spondylolisthesis, lumbar region; M43.22 Fusion of spine, cervical region; G89.4 Chronic pain syndrome; Z98.890 Other specified postprocedural states | CPT/HCPCS: 99212 ==

== ENCOUNTER 2025-01-11 12:55 | Outpatient (AMB) | payer OTHER, SELFPAY ==
--- OUTSIDE RECORDS SUMMARY | 2008-02-25 08:04 | XMS_ITS | Continuity of Care Document ---
Author Organization [facility] Address [address] [place] [address] Phone Care Team Providers Care Wireless Manager Name Role Phone Jeanne Sow Unavailable Unavailable Advance Directives Directive Yes / No Effective Date File Name No Information Encounters Encounter Description Practice Location Reason(s) For Visit Diagnoses Date Provider [facility], [address] [place] [address], [facility], tel:[phone] [address] [place] [address] No Information 2007 Miesha Angel. 70 [facility], [id number] [address] [place] [address], [facility], . tel:[phone] Family History Family Member Type Diagnosis Age At Onset No Information Payers Payer name Insurance type Covered alliance party ID Authoriza tion(s) No Information Social History Type Description Quantity Date Captured Comments Sex Female Smoking Status No Information Chief Complaint And Reason For Visit No Information History Of Present Illness Encounter Date Complaint History Of Prese nt Illness No Information Instructions Date Instruction Additional Infor mation No Information Assessments Type Assessment Date No Information
--- OUTSIDE RECORDS SUMMARY | 2025-01-06 11:30 | XMS_ITS | Encounter Summary ---
Author Organization [employer] Address [address] [place] [address] Care Team Providers Care Pharmaceutical Salesperson Name Role Phone Unavailable Primary Care Provider Unavailabl e Reason for Visit * Reason Comments Dental Exam Lower left Encounter Details Date Type Department Care Team (Late st Contact Info) Description 01/06/2025 11:30 AM EDT Office Visit [facility] [address] [place] [address] Amanuel Bell DMD [address] [place] [address] Dental abscess (Primary Dx) Social History Tobacco Use Types Packs/Day Years Used Date Smoking Tobacco: Every Day Cigarettes Smokeless Tobacco: Never Alcohol Use Standard Drinks/Week Comments Never 0 (1 standard drink = 0.6 oz pur e alcohol) Comments Unknown Sex and Gender Information Value Date Recorded Sex Assigned at Female 01/06/2025 8:06 AM EDT Legal Sex Female 8:05 AM EDT Gender Identity Female 01/06/2025 8:06 AM EDT Sexual Orientation Straight 01/06/2025 8: 06 AM EDT documented as of this encounter Progress Notes * Amanuel Bell DMD - 01/06/2025 11:30 AM EDT Dental procedures in this visit D0140 - LIMITED ORAL EVALUATION - PROBLEM FOCUSED (Completed) Service provider: Amanuel Bell DMD Billing provider: Amanuel Bell DMD D0270 - BITEWING - SINGLE RADIOGRAPHIC IMAGE (Completed) Service provider: Amanuel Bell DMD Billing provider: Amanuel Bell DMD D0220 - INTRAORAL - PERIAPICAL FIRST RADIOGRAPHIC IMAGE (Completed) Service provider: Amanuel Bell DMD Billing provider: Amanuel Bell DMD D9450 - CASE PRESENTATION, DETAILED AND EXTENSIVE TREATMENT PLANNING (Completed) Service provider: Amanuel Bell DMD Billing provider: Amanuel Bell DMD Patient ID: Ivonne Andrade is a 39 y.o. female. Time Out: Timeout Date: 01/06/25, Timeout Time: 1144 Location: [facility] Tooth: #18 Procedure: Exam, X-rays, and Emergency Verified the above with patient, advertising assistant manager, and provider. Confirmed via patient's chart, intraorally and by radiographs. Telecom Assistant: not applicable Chief Complaint Patient presents with Dental Exam Lower left Medical Hx: Vitals: There were no vitals taken for this visit. Medical History[1] Medications: Encounter Medications[2] Subjective: Pt presents with 1 day history of significant pain in LL Pt cannot eat or sleep due to pain Feels pain is worsening and radiating to ear Objective: Tooth: #18 Radiographs Taken: BW(s) and PA(s) Radiographic Findings: Decay, Periapical Radiolucency, and Fractured/Broken Tooth Complete bone loss on mesial, furcal bone loss Caries extends to crest of bone on distal Very poor restorability prognosis Clinical Findings: No visible extraoral swelling Pt presents holding face and grimacing in discomfort #18 deep distal decay approximating pulp Tender to percussion and palpation Tooth mobile grade II No vestibular swelling, nothing drainable Other Findings: pt notes discomfort in maxillary teeth. Briefly examined clinically - no extensive decay. Informed pt and discussed likelihood of referred pain from #18. Also advise comp exam to truly evaluate teeth. Pt understood Diagnosis: #18 acute apical abscess due to dental caries Informed pt of findings and recommendation of EXT. Offered to complete this PM if pt can come back after lunch. Pt agreed Reviewed med history with pt - no history of head/neck radiation, no history of bisphosphonate therapy, not taking blood thinners Assessment/Plan: EXT #18 Prescriptions: none at this time Pt tolerated procedure well, all questions answered. Dismissed in good condition. NV: EXT #18 Rehabilitation Supervisor: Mireya Carmichael Dentist: Amanuel Bell DMD [1] Past Medical History: Diagnosis Date Known health problems: none [2] No outpatient encounter medications on file as of 01/06/2025. No facility-administered encounter medications on file as of 01/06/2025. documented in this encounter Plan of Treatment Not on file documented as of this encounter Procedures Procedure Name Priority Date/Time Associated Diagnosis Comments LIMITED ORAL EVALUATION - PROBLEM FOCUSED Routine 01/06/2025 11:30 AM EDT Dental abscess INTRAORAL - PERIAPICAL FIRST RADIOGRAPHIC IMAGE Routine 01/06/2025 11:30 AM EDT Dental abscess CASE PRESENTATION, DETAILED AND EXTENSIVE TREATMENT PLANNING Routine 01/06/2025 11:30 AM EDT Dental abscess BITEWING - SINGLE RADIOGRAPHIC IMAGE Routine 01/06/2025 11:30 AM EDT Dental abscess 18 MO AMALGAM FILLING Routine 01/06/2025 12:00 AM EDT documented in this encounter Visit Diagnoses Diagnosis Dental abscess- Primary Periapical abscess without sinus documented in this encounter
--- OUTSIDE RECORDS SUMMARY | 2025-01-06 13:00 | XMS_ITS | Encounter Summary ---
Author Organization [email or web address] Address [address] [facility] [address] [place] [address] Care Team Providers Care Mold Shop Supervisor Name Role Phone Unavailable Primary Care Provider Unavailabl e Reason for Visit * Reason Comments Extraction Encounter Details Date Type Department Care Team ([facility] st Contact Info) Description 01/06/2025 1:00 PM EDT Office Visit [facility] [address] [place], [place] [phone] Amanuel Bell DMD [address] [place] [address] Dental abscess (Primary Dx) Social History Tobacco Use Types Packs/Day Years Used Date Smoking Tobacco: Every Day Cigarettes Smokeless Tobacco: Never Tobacco Cessation:Ready to Q uit: Not Asked; Counseling Given: Not Answered Alcohol Use Standard Drinks/Week Comments Never 0 (1 standard drink = 0.6 oz pur e alcohol) Comments Unknown Sex and Gender Information Value Date Recorded Sex Assigned at Female 01/06/2025 8:06 AM EDT Legal Sex Female 8:05 AM EDT Gender Identity Female 01/06/2025 8:06 AM EDT Sexual Orientation Straight 01/06/2025 8: 06 AM EDT documented as of this encounter Last Filed Vital Signs Vital Sign Reading Time Taken Comments Blood Pressure 160/100 01/06/2025 1:07 PM EDT Pulse - - Temperature - - Respiratory Rate - - Oxygen Saturation - - Inhaled Oxygen Concentration - - Weight - - Height - - Body Mass Index - - documented in this encounter Progress Notes * Amanuel Bell DMD - 01/06/2025 1:00 PM EDT Patient ID: Ivonne Andrade is a 39 y.o. female. Time Out: Timeout Date: 01/06/25, Timeout Time: 1307 (extraction) Location: [facility] Tooth: #18 Procedure: Extraction Verified the above with patient, digital sales assistant, and provider. Confirmed via patient's chart, intraorally and by radiographs. Access Tech: not applicable Chief Complaint Patient presents with Extraction Medical Hx: Vitals: Blood pressure (!) 160/100. Medical History[1] Medications: Encounter Medications[2] Consent Obtained: The risks, benefits, indications, potential complications, and alternatives were explained to the patient and informed consent was obtained with good understanding. Treatment Provided: Dental procedures in this visit D7140 - EXTRACTION, ERUPTED TOOTH OR EXPOSED ROOT (ELEVATION/FORCEPS REMOVAL) 18 (Completed) Service provider: Amanuel Bell DMD Billing provider: Amanuel Bell DMD Diagnosis: acute apical abscess #18 Topical: 20% Benzocaine Anesthesia: 2% Lidocaine (Xylocaine) w/ 1:100,000 epinephrine and 4% Septocaine (Articaine) w/ 1:200,000 epinephrine Number of Cartridges: 1 of each Injection Type: Buccal infiltration and Inferior alveolar nerve block Confirmed profound anesthesia. Pharyngeal curtain and bite block placed. Removed tooth with elevators and forceps. Apices intact. Surgical Extraction: N/A Socket curetted & irrigated with sterile water. Compressed alveolar bone. Sutures: None Needed All adjacent teeth intact. Hemostasis achieved. Complications: None Written and verbal post-op instructions given. Patient discharged in stable condition; ambulatory, alert, and oriented. NV: D0150 Industrial Trainer: Mireya Carmichael Dentist: Amanuel Bell DMD [1] Past Medical History: Diagnosis Date Known health problems: none [2] No outpatient encounter medications on file as of 01/06/2025. No facility-administered encounter medications on file as of 01/06/2025. documented in this encounter Plan of Treatment Scheduled Orders Name Type Priority Associated Diagnoses Orde r Schedule COMPREHENSIVE ORAL EVALUATION - NEW OR ESTABLISHED PATIENT Dental Routine 1 Occurrence s starting 01/06/2025 documented as of this encounter Procedures Procedure Name Priority Date/Time Associated Diagnosis Comments 18 EXTRACTION, ERUPTED TOOTH OR EXPOSED ROOT (ELEVATION/FORCEPS REMOVAL) Routine 01/06/2025 1:00 PM EDT Dental abscess documented in this encounter Visit Diagnoses Diagnosis Dental abscess- Primary Periapical abscess without sinus documented in this encounter
--- NOTE | 2025-01-11 13:08 | MHC.OFFVIS ---
Vital Signs 01/11/25 13:09 Height 5 ft 2.6 in Weight 198 lb BMI 35.5 BP 140/78 H Blood Pressure Location Lt brachial Position Sitting Respiration 16 Pulse 85 Pulse Source Pulse Oximeter Pulse Oximetry (%) 99 Oxygen Delivery Method Room Air Intake Visit Reasons: Spondylolisthesis, lumbar region Landscape Artist Required: No Allergies No Known Allergies Allergy (Verified 01/11/25 13:11) Medication List - Last Reconciled 01/11/25 by Tootie Cole LPN ascorbic acid (vitamin C) 500 mg PO DAILY cyclobenzaprine 10 mg PO BEDTIME ferrous sulfate (iron) 325 mg PO DAILY ibuprofen 600 mg PO Q6H PRN losartan 25 mg PO DAILY omeprazole 20 mg PO DAILY tramadol 100 mg PO Q6H PRN HPI HPI Spondylolisthesis, lumbar region: Details: History of Present Illness The patient is a 39-year-old female presenting with chronic neck and back pain. The neck pain has persisted for five years, with a severity of 8/10, radiating towards the shoulders, elbows, and hands. The pain is exacerbated by movement and is worse in the morning and late at night, with some relief during midday. The back pain, rated at 7/10, radiates towards the inner thighs and is associated with burning, pins and needles, and numbness sensations. The patient has undergone three back surgeries and one neck surgery, with limited relief from these interventions. She has tried various treatments including chiropractic manipulation, acupuncture, herbal medications, nerve blocks, ibuprofen, tramadol, muscle relaxers, and epidural injections, all with limited benefit. The patient reports that cortisone injections provided temporary relief. In 2019, she was diagnosed with cauda equina syndrome due to a disc herniation at L4-5, which required [id number] surgeries five days apart. The surgeries included a discectomy without fusion. Pain Description - Onset: 5 years ago - Quality: Burning, pins and needles, numbness - Location: Neck and back, radiating to shoulders, elbows, hands, and inner thighs - Severity: Neck pain 8/10, back pain 7/10 - Exacerbating factors: Movement, morning, late night - Relieving factors: Midday Physical Exam - Musculoskeletal: Spine is straight with loss of normal curvature, indicating muscle tightness - Musculoskeletal: Pain on forward bending, no pain on backward bending Results - MRI: Recent lumbar spine MRI conducted, cervical spine MRI pending. MRI shows vertebral endplate Modic changes with active inflammation at the L4-5 endplates due to severe DDD secondary to prior disc herniation and diskectomy. Pain Management - Affect: Pain impacts daily activities and care for her son - Analgesia: Current pain levels are neck 8/10, back 7/10; temporary relief from cortisone injections - Adverse Effects: Limited benefit from previous medications and treatments - Activities of Daily Living: Pain interferes with ability to care for her son - Aberrant Drug Related Behaviors: None reported [facility] Medical History (Updated 01/12/25 @ 17:05 by Maged Cage MD) History of fall snf prescription opiate use Chronic pain syndrome Lumbar disc herniation Cervical vertebral fusion Surgical History History of back surgery Family History Father Prostate cancer Mother Breast cancer Social History Housing: Condominium Alcohol intake: current Alcohol intake frequency: does not drink Patient Tobacco Use Status: Current everyday Tobacco user Tobacco use type: Cigarette Cigarettes Per Day: 3 service: No Current occupational status: employed Cognitive needs: Yes (walker) Hearing needs: No Vision needs: No Physical Exam Vital Signs: Last Vital Signs Pulse 85 01/11/25 13:09 Resp 16 01/11/25 13:09 BP 140/78 H 01/11/25 13:09 Pulse Ox 99 01/11/25 13:09 Oxygen Delivery Method Room Air 01/11/25 13:09 BMI result Body Mass Index 35.5 Assessment & Plan Assessment & Plan (1) Cervical disc disorder: Code(s): M50.90 - Cervical disc disorder, unspecified, unspecified cervical region Category: Medical (2) Vertebrogenic low back pain: Code(s): M54.51 - Vertebrogenic low back pain Category: Medical Plan Plan Patient was informed and verbally consented to the use of an ambient scribe for clinic note documentation during this visit. 1. Chronic Neck Pain - Plan includes physical therapy and cortisone injections, with emphasis on exercises and stretching to strengthen neck muscles. 2. Chronic Back Pain - Plan includes physical therapy and consideration of basivertebral nerve ablation for L4-L5, pending insurance authorization. 3. Cervical Radiculopathy - Plan involves MRI of the cervical spine followed by potential epidural steroid injections. Discussion Notes I discussed with the patient the potential benefits and risks of basivertebral nerve ablation for her lumbar spine, emphasizing that it targets the nerves transmitting pain signals from the L4-5 region. We also reviewed the importance of physical therapy for both neck and back pain management, highlighting the need for consistent exercises to strengthen the spine-supporting muscles. The patient was informed about the process of obtaining insurance authorization for the procedure and the expected timeline for scheduling. Patient Instructions - Continue with physical therapy as prescribed to strengthen neck and back muscles. - Await insurance authorization for basivertebral nerve ablation and follow up for scheduling. - Schedule and complete MRI of the cervical spine as soon as possible. - Consider swimming or other low-impact exercises to support back health. Coding Level of Care Code New Pt Level 4 (42609) Diagnoses Cervical disc disorder M50.90 Vertebrogenic low back pain M54.51
[2025-01-11 13:09] VITALS: BP 140/78; PULSE 85; RESP 16; O2SAT 99; BMI 35.5
--- OUTSIDE RECORDS SUMMARY | 2025-01-11 16:25 | XMS_ITS | Encounter Summary ---
Author Organization [facility] Address [facility] [place] [address] Care Team Providers Care Head Butler Name Role Phone Grant Ac MD Primary Care Provider +1- [phone] Reason for Visit * Reason Comments Medication Refill Encounter Details Date Type Department Care Team ([facility] Contact Info) Description 12/22/2022 Refill Primary Care at [address] [place] [phone] Grant Ac MD [address] [place] [phone] Acute non-recurrent frontal sinusitis Social History Tobacco [...] PM EST Office Visit Ophthalmology at [address] [phone] Umair Chavez MD [address] [place] [address] [place] [address] documented as of this encounter Visit Diagnoses Diagnosis Acute non-recurrent frontal sinusitis documented in this encounter Additional Health Concerns Infection Onset Date Last Indicated Resolved Time Rule Out COVID-19 03/14/2024 03/14/2024 03/15/2024 12:01 AM EST documented as of this encounter Care Teams Head Butler Relationship Specialty Start Date End Date Grant Ac MD [address] [place] [address] [place] [address] PCP - General Family Medicine 07/02/17 documented as of this encounter
--- OUTSIDE RECORDS SUMMARY | 2025-01-11 16:25 | XMS_ITS | Encounter Summary ---
Author Organization [facility] [place] [address] Care Team Providers Care Airline Manager Name Role Phone Grant Ac MD Primary Care Provider +1- [phone] Reason for Visit * Reason Onset Date Comments Medication Refill 02/10/2022 Encounter Details Date Type Department Care Team (Late Contact Info) Description 02/10/2022 Refill Primary Care at [address] [phone] Grant Ac MD [address] [place] [address] Social History Tobacco Use Types Packs/Day [...] 3:30 PM EST Office Visit Ophthalmology at [facility] [address] [place] [address] Umair Chavez MD [address] [facility] [place] [address] documented as of this encounter Visit Diagnoses Not on filedocumented in this encounter Additional Health Concerns Infection Onset Date Last Indicated Resolved Time Rule Out COVID-19 03/14/2024 03/14/2024 03/15/2024 12:01 AM EST documented as of this encounter Care Teams Airline Manager Relationship Specialty Start Date End Date Grant Ac MD [address] [place] [address] PCP - General Family Medicine 07/02/17 documented as of this encounter
--- OUTSIDE RECORDS SUMMARY | 2025-01-11 16:25 | XMS_ITS | Encounter Summary ---
Author Organization [facility] [place] [address] Care Team Providers Care Product Ambassador Name Role Phone Grant Ac MD Primary Care Provider +1- [phone] Reason for Visit * Reason Onset Date Comments Medication Refill 01/03/2021 Encounter Details Date Type Department Care Team (Late Contact Info) Description 01/03/2021 Refill Primary Care at [address] [phone] Grant Ac MD [address] [place] [address] Low back pain Social History Tobacco [...] PM EST Office Visit Ophthalmology at [address] [phone] Umair Chavez MD [address] [place] [address] [place] [address] documented as of this encounter Visit Diagnoses Diagnosis Low back pain Lumbago documented in this encounter Additional Health Concerns Infection Onset Date Last Indicated Resolved Time Rule Out Respiratory 08/16/2021 08/16/2021 022 1:13 AM EDT Rule Out COVID-19 08/16/2021 08/16/2021 08/17/2021 1:13 AM EDT Rule Out COVID-19 03/14/2024 03/14/2024 03/15/2024 12:01 AM EST documented as of this encounter Care Teams Product Ambassador Relationship Specialty Start Date End Date Grant Ac MD [address] [place] [address] PCP - General Family Medicine 07/02/17 documented as of this encounter
--- OUTSIDE RECORDS SUMMARY | 2025-01-11 16:25 | XMS_ITS | Clinical Summary ---
Author Organization [facility] Address [facility] [place] [address] Care Team Providers Care Insurance Defense Attorney Name Role Phone Grant Ac MD Primary Care Provider +1- [phone] Allergies Active Allergy Reactions Criticality Noted Date Comments Lisinopril Other (See Comments) 02/28/2023 Cough Medications fluticasone propionate (Flonase) 50 mcg/actuation [place], SuspensionIndica tions:Acute non-recurrent frontal sinusitis 2 sprays [...] - Signed DPR Vinicio Gunn () permenant [phone] Problem Noted Date Diagnosed Date Right arm numbness 11/19/2023 Depression 08/30/2023 Lumbar disc herniation 11/28/2022 Snoring 05/11/2022 Nasal obstruction 05/11/2022 Chronic allergic rhinitis 05/11/2022 Frontal headache 05/11/2022 Herniation of lumbar intervertebral disc with ra diculopathy 01/08/2022 Radiculopathy of cervical region 08/17/2021 Numbness 06/16/2021 Pain of left sacroiliac joint 06/16/2021 Tendinitis of right rotator cuff 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 [...] Team Description 11/27/2024 Refill Primary Care at [address] [phone] Grant Ac MD Other chronic pain; Recurrent low back pain 11/16/2024 Refill Primary Care at [address] [phone] Grant Ac MD Other chronic pain; Recurrent low back pain 10/28/2024 Refill Primary Care at [address] [phone] Brian Horne PA Other chronic pain; Recurrent low back pain 10/23/2024 Telephone Primary Care at [address] [address] Marcelle Lockhart LPN 10/19/2024 Refill Primary Care at [address] [phone] Grant Ac MD Other chronic pain; Recurrent low back pain; intermediate 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 10/17/2024 1:54 PM EDT - 10/17/2024 11:59 PM EDT Hospital Encounter MRI at [address] [phone] Jeni Butler APRN Slurred speech; Generalized weakness Discharge Disposition: Home 10/16/2024 10:30 AM EDT Laboratory Appointment Lab at [address] [address] Encounter for vitamin deficiency screening; Slurred speech; Generalized weakness; Vitamin D deficiency; Numbness; Facial twitching 10/16/2024 10:00 AM EDT - 10/16/2024 11:59 PM EDT Hospital Encounter CAT Scan at [address] [phone] Jeni Butler APRN Slurred speech; Generalized weakness Discharge Disposition: Home 10/16/2024 9:35 AM EDT Office Visit Primary Care at [address] [phone] Jeni Butler APRN Recurrent low back pain; Slurred speech; Facial twitching; Generalized weakness; Numbness; Encounter for vitamin deficiency screening 10/16/2024 Legacy Encounter Primary Care at [address] [phone] Jeni Butler APRN 10/16/2024 Results Follow-Up Primary Care at [address] [phone] Jeni Butler, SELE[place] CT Head wo Contrast (Standard), Vitamin D, 25-Hydroxy, Comprehensive metabolic panel Fasting required, MRI Brain wwo Contrast (Standard) 10/16/2024 Travel from Last 3 Months Immunizations Immunization Administration Dates Next Due Covid-19 Monovalent (Pfizer Comirnaty purple cap) 12yrs+ (0782-1927) 05/17/2020 Influenza (Flucelvax) Trival ent Preservative Free, [...] place to sleep or slept in a skilled nursing (including now)? No 04/12/2022 DH IPV Inpatient [...] Upcoming Encounters Date Type Department Care Team ([facility] st Contact Info) Description 02/01/2025 3:30 PM EST Office Visit Ophthalmology at [facility] [address] [place] [address] Umair Chavez MD [address] [facility] [place] [address] Health Maintenance Due Date Last Done [...] history exists Medical Devices Implanted Type Area Engineering Programmer Device Identifier Shelf Expiration Date Model / Serial / Lot Seala,Dura,Spi ne,Ext,5ml ([id number]) - [id number] Implanted:Qty: 1 on 04/21/2019 by Kunal Cruz MD at [facility] IMPLANTS DO NOT USE Shyp - [employer] LI [id number] / / [id number] Procedures Procedure Name Priority Date/Time Associated Diagnosis [...] exam HPV Routine 01/26/2021 11:18 AM EST PROPOSAL MANAGER WRITER CYTOLOGY FINAL REPORT Routine 01/26/2021 11:18 AM EST from Last 3 Months or Most Recently Relevant to Health Maintenance Results * MRI Brain wwo Contrast (Standard) (10/17/2024 2:56 PM EDT) WORKSTATION ID [id number] DH RAD Anatomical Region Laterality Modality Head [...] who have questions please contact the health lpn care manager that requested your imaging first. Electronically signed by: ISAI INGRAM MD, [facility] ([phone]), at 10/17/2024 4:31 PM Narrative 10/17/2024 4:31 [...] patients who have questions please contactthe health lpn care manager that requested your imaging first. Electronically signed by: ISAI INGRAM MD, [facility]([phone]), at 10/17/2024 4:31 PM Jeni Butler MARINE FARMER IMG MRI ORDERABLES Final Result * CT Head wo Contrast (Standard) (10/16/2024 10:37 AM EDT) WORKSTATION ID [id number] RAD Anatomical Region Laterality Modality Head Computed [...] who have questions please contact the health lpn care manager that requested your imaging first. Electronically signed by: ISAI INGRAM MD, [facility] ([phone]), at 10/16/2024 10:39 AM Narrative 10/16/2024 10:39 [...] patients who have questions please contactthe health lpn care manager that requested your imaging first. Electronically signed by: ISAI INGRAM MD, [facility]([phone]), at 10/16/2024 10:39 AM us Jeni Butler APRN IMG CT ORDERABLES Final R esult * Vitamin D, 25-Hydroxy (10/16/2024 10:18 AM EDT) Vitamin D Total 25 OH 23 21 - 100 ng/ml 10/16/2024 1:17 PM EDT [facility] Vitamin D Total 25 OH Interp Insufficient 10/16/2024 1:17 PM EDT [facility] Blood VENOUS BLOOD SPECIMEN / Unknown Venipuncture / Unknown 10/16/2024 10:18 AM EDT 10/16/2024 10:18 AM EDT us Jeni Butler APRN CHEMISTRY ORDERABLES Ivette l Result [facility] [address] [place] [address] * Vitamin B12 (10/16/2024 10:18 AM EDT) Vitamin B12 746 232 - 1,245 pg/mL 10/16/2024 4:26 PM EDT [facility] Blood VENOUS BLOOD SPECIMEN / Unknown Venipuncture / Unknown 10/16/2024 10:18 AM EDT 10/16/2024 10:18 AM EDT us Jeni Butler MARINE FARMER CHEMISTRY ORDERABLES Ivette l Result [facility] [address] [phone] * (ABNORMAL) Comprehensive metabolic panel Fasting required (10/16/2024 10:18 AM EDT) Glucose 91 65 - 99 mg/dL 10/16/2024 11:03 AM EDT [facility] Comment: Fasting Glucose Interpretive Criteria: Normal: 65-99 mg/dL Prediabetes: 100-125 mg/dL Consistent with Diabetes Mellitus: > or = 126 mg/dL Classification and Diagnosis of Diabetes: Standards of Care in Diabetes - 2022. Diabetes Care 2022; 46:S19. Fasting is defined as no caloric intake for at least 8 hours. Blood Urea Nitrogen 7(L) 8 - 18 mg/dL 10/16/2024 11:03 AM T [facility] Creatinine 0.48(L) 0.70 - 1.20 mg/dL 10/16/2024 11:03 AM T [facility] Sodium 139 135 - 145 mMol/L 10/16/2024 11:03 AM T [facility] Potassium 4.4 3.5 - 5.0 mMol/L 10/16/2024 11:03 AM [facility] Chloride 98 98 - 107 mMol/L 10/16/2024 11:03 AM [facility] Carbon Dioxide 27 22 - 31 mMol/L 10/16/2024 11:03 AM [facility] Anion Gap 14 5 - 15 mMol/L 10/16/2024 11:03 AM [facility] Calcium 9.5 8.5 - 10.5 mg/dL 10/16/2024 11:03 AM T [facility] Protein, Total 6.9 6.1 - 8.0 g/dL 10/16/2024 11:03 AM EDT [facility] Albumin 4.1 3.2 - 5.2 g/dL 10/16/2024 11:03 AM T [facility] Aspartate Aminotransferase 21 <=30 unit/L 10/16/2024 11:03 AM EDT [facility] Alanine Aminotransferase 20 0 - 30 unit/L 10/16/2024 11:03 AM [facility] Alkaline Phosphatase 125(H) 35 - 105 unit/L 10/16/2024 11:03 AM T [facility] Bilirubin, Total 0.3 <=1.3 mg/dL 10/16/2024 11:03 AM [facility] Est Glomerular Filtration Rate - Female 125 >=90 mL/min/1. 73 m 10/16/2024 11:03 AM [facility] Comment: This patient's estimated GFR [...] Foundation Fasting Status Yes 10/16/2024 11:03 AM T [facility] Blood VENOUS BLOOD SPECIMEN / Unknown Venipuncture / Unknown 10/16/2024 10:18 AM EDT 10/16/2024 10:18 AM EDT us Jeni Butler MARINE FARMER CHEMISTRY ORDERABLES Ivette davida Result [facility] [address] [place] [address] * Lipid Panel (Reflex Direct LDL) (02/28/2023 10:19 AM EST) Cholesterol, Total 253 mg/dL [facility] Comment: Lower Risk: <200 mg/dL Average Risk: 200-239 mg/dL Higher Risk: >wj=287 mg/dL Triglyceride 194 mg/dL [facility] Comment: Average Risk/Lower Risk: <150 mg/dL Borderline High Risk: 150-199 mg/dL High Risk: 200-499 mg/dL Very High Risk: >cg=772 mg/dL HDL Cholesterol 48 mg/dL [facility] Comment: Males: Higher Risk: <40 mg/dL Females: Higher Risk: <50 mg/dL LDL Cholesterol 166 mg/dL [facility] Comment: Lowest Risk: <100 mg/dL Lower Risk: 100-129 mg/dL Borderline High Risk: 130-159 mg/dL High Risk: 160-189 mg/dL Very High Risk: >ab=899 mg/dL Cholesterol/HDL Ratio 5.3 ratio [facility] Lipid Interpretation See Note [facility] Comment: Lipid management should be guided by a patient s ASCVD risk, goals and preferences. ACC/AHA Guidelines recommend high intensity statin if clinical ASCVD or LDL greater than or equal to 190 mg/dL. http://[employer] Products.com/ZOJ-TIY-Ukuhgdtbd Adults aged 40-75 with LDL 70-189 mg/dL should have their 10 year ASCVD risk estimated with the ACC/AHA ASCVD risk speech language pathology assistant http://tools.acc.org/CEBXE-Cjem-Atsoqolcd/ Statin should be discussed if risk greater [...] Grant Ac MD CHEMISTRY ORDERABLES Final Result [facility] [address] [place] [address] * HPV (01/26/2021 11:18 AM EST) HPV16 NEGATIVE NEGATIVE [facility] HPV 18 NEGATIVE NEGATIVE [facility] HPV Other HR NEGATIVE NEGATIVE [facility] HPV Interpretation See Comment [facility] Comment: NEGATIVE for [...] Resulting Agency Comment Spec In Lab Candace Gacria MARINE FARMER PATHOLOGY/CYTOLOGY ORDERAB LES Final Result Performing Organization Address [facility] Co de Phone Number [facility] [place] [address] * Crime Investigator Special Agent Cytology Final Report (01/26/2021 11:18 AM EST) Crime Investigator Special Agent Cytology Final Report [id number] Location: [facility] The signing pathologist has (i) examined the relevant preparation(s) for the specimen(s) and (ii) rendered or confirmed the diagnosis(es). . Crime Investigator Special Agent Final DIAGNOSIS Normal Negative for intraepithelial lesion or malignancy (NILM). For consensus guidelines for the management of cervical cancer screening test results, please see: http://www.asccp. org . Electronically signed by: Ravindra RYAN(ASCP)Asuncion Verified: 02/10/2021 15:07 Email Producer Performed at: [place] [place], [place], [place] HPV RESULTS HPV16 (Result) Negative HPV18 [...] Clinical Genomics and Advanced Technology (CGAT) at [facility] - Jose Carlos Bain, PhD, [facility], Director-[facility] STATEMENT OF ADEQUACY Specimen submitted is satisfactory [...] Yes, history of previous abnormal Pap Prior PROPOSAL MANAGER WRITER Therapy: No Hist of HPV Vaccine: No [...] variables. For further information please contact the [facility]. Reference: Ruma MATT. Supervisor Shed Workers of Pap Smear Results. In: Cely BS, Conrad HH, ed. The Pap Smear. [place]: Jayson, 2002: 71-77. [facility] 01/26/2021 11:1 8 AM EST us Candace Garcia APRN PATHOLOGY/CYTOLOGY ORDERAB LES Final Result [facility] [place] [address] from Last 3 Months or Most Recently Relevant to Health Maintenance Insurance [id number] (Home) [address] [facility], [place] [address] [place] [employer] [place]ICAID Advance Directives Documents on File Type Date Recorded Patient Wincher Expl anation Personal Wincher 12/03/2019 8:36 AM * Attempt Cardiopulmonary Resuscitation [...] capacity to make decision: Yes Care Teams Insurance Defense Attorney Relationship Specialty Start Date End Date Grant Ac MD [address] [facility] FAMILY [facility] [place] [place] [address] PCP - General Family Medicine 07/02/17
--- OUTSIDE RECORDS SUMMARY | 2025-01-11 16:25 | XMS_ITS | Encounter Summary ---
Author Organization [facility] Address One [facility] [place] [address] Care Team Providers Care Receiving Manager Name Role Phone Grant Ac MD Primary Care Provider +1- [phone] Reason for Visit * Reason Comments Medication Refill Encounter Details Date Type Department Care Team ([facility] Contact Info) Description 08/27/2023 Refill Otolaryngology at [address] [phone] Ninfa Julian PA [address] [place] [address] [phone] Nasal obstruction; Chronic allergic rhinitis Social History [...] place to sleep or slept in a snf (including now)? No 04/12/2022 DH IPV Inpatient [...] 3:30 PM EST Office Visit Ophthalmology at [address] [phone] Umair Chavez MD [address] [place] [address] [place] [address] documented as of this encounter Visit Diagnoses Diagnosis Nasal obstruction Other diseases of nasal cavity and sinuses Chronic allergic rhinitis Allergic rhinitis, cause unspecified documented in this encounter Additional Health Concerns Infection Onset Date Last Indicated Resolved Time Rule Out COVID-19 03/14/2024 03/14/2024 03/15/2024 12:01 AM EST documented as of this encounter Care Teams Receiving Manager Relationship Specialty Start Date End Date Grant Ac MD [address] [place] [address] PCP - General Family Medicine 07/02/17 documented as of this encounter
--- OUTSIDE RECORDS SUMMARY | 2025-01-11 16:25 | XMS_ITS | Encounter Summary ---
Author Organization [facility] Address [facility] [place] [address] Care Team Providers Care Cloth Examiner Name Role Phone Grant Ac MD Primary Care Provider +1- [phone] Reason for Visit * Reason Comments Medication Refill Encounter Details Date Type Department Care Team ([facility] Contact Info) Description 2022 Refill Otolaryngology at [address] [phone] Ninfa Julian PA [address] [place] [address] [phone] Nasal obstruction; Chronic allergic rhinitis Social History [...] in a chcf (including now)? No 04/12/2022 Comments No Sex and Gender Information Value Date Recorded Sex Assigned at Not on file Legal Sex Female 2:32 PM EDT Gender Identity Not on file Sexual Orientation Not on file documented as of this encounter Plan of Treatment Upcoming Encounters Date Type Department Care Team ([facility] st Contact Info) Description 02/01/2025 3:30 PM EST Office Visit Ophthalmology at [address] [address] Umair Chavez MD [address] [place] [address] [place] [address] documented as of this encounter Visit Diagnoses Diagnosis Nasal obstruction Other diseases of nasal cavity and sinuses Chronic allergic rhinitis Allergic rhinitis, cause unspecified documented in this encounter Additional Health Concerns Infection Onset Date Last Indicated Resolved Time Rule Out COVID-19 03/14/2024 03/14/2024 03/15/2024 12:01 AM EST documented as of this encounter Care Teams Cloth Examiner Relationship Specialty Start Date End Date Grant Ac MD [address] [place] [address] PCP - General Family Medicine 07/02/17 documented as of this encounter
--- OUTSIDE RECORDS SUMMARY | 2025-01-11 16:25 | XMS_ITS | Encounter Summary ---
Author Organization [facility] [place] [address] Care Team Providers Care Recruiting Associate Name Role Phone Grant Ac MD Primary Care Provider +1- [phone] Encounter Details Date Type Department Care Team (Late Contact Info) Description 08/15/2021 Refill Primary Care at [address] [phone] Grant Ac MD [address] [place] [address] Social History Tobacco Use Types Packs/Day [...] 3:30 PM EST Office Visit Ophthalmology at [facility] [address] [place] [address] Umair Chavez MD [address] [facility] [place] [address] documented as of this encounter Visit Diagnoses Not on filedocumented in this encounter Additional Health Concerns Infection Onset Date Last Indicated Resolved Time Rule Out Respiratory 08/16/2021 08/16/20212 022 1:13 AM EDT Rule Out COVID-19 08/16/2021 08/16/2021 08/17/2021 1:13 AM EDT Rule Out COVID-19 03/14/2024 03/14/2024 03/15/2024 12:01 AM EST documented as of this encounter Care Teams Recruiting Associate Relationship Specialty Start Date End Date Grant Ac MD [address] [place] [address] PCP - General Family Medicine 07/02/17 documented as of this encounter
--- OUTSIDE RECORDS SUMMARY | 2025-01-11 16:25 | XMS_ITS | Encounter Summary ---
Author Organization [facility] Address One [facility] [place] [address] Care Team Providers Care Transit Survey Worker Name Role Phone Grant Ac MD Primary Care Provider +1- [phone] Reason for Visit * Reason Comments Medication Refill Encounter Details Date Type Department Care Team ([facility] Contact Info) Description 06/04/2023 Refill Otolaryngology at [address] [phone] Ninfa Julian PA [address] [place] [address] [phone] Nasal obstruction; Chronic allergic rhinitis Social History [...] 3:30 PM EST Office Visit Ophthalmology at [address] [phone] Umair Chavez MD [address] [place] [address] [place] [address] documented as of this encounter Visit Diagnoses Diagnosis Nasal obstruction Other diseases of nasal cavity and sinuses Chronic allergic rhinitis Allergic rhinitis, cause unspecified documented in this encounter Additional Health Concerns Infection Onset Date Last Indicated Resolved Time Rule Out COVID-19 03/14/2024 03/14/2024 03/15/2024 12:01 AM EST documented as of this encounter Care Teams Transit Survey Worker Relationship Specialty Start Date End Date Grant Ac MD [address] [place] [address] PCP - General Family Medicine 07/02/17 documented as of this encounter
--- OUTSIDE RECORDS SUMMARY | 2025-01-11 16:25 | XMS_ITS | Encounter Summary ---
Author Organization [facility] One [facility] [place] [address] Care Team Providers Care Supreme Court Judge Name Role Phone Grant Ac MD Primary Care Provider +1- [phone] Reason for Visit * Reason Onset Date Comments Neck And Arm Pain 09/09/2024 Encounter Details Date Type Department Care Team (Late st Contact Info) Description 09/09/2024 Nurse Triage Primary Care at [address] [place] [address] Seth Rodríguez RN Neck And Arm [...] PM EDT Left message to call back. [facility] Please send message for Team B nursing response, advise patient to be near phone with ringer and we will attempt to call back as soon as possible. * Telephone Encounter - Seth Rodríguez RN - 09/10/2024 1:49 PM EDT Copied from [facility] #[id number]. Topic: Generic Non-Symptom Based - Generic Call [...] as possible. Message sent to patient via Vdancer. * Telephone Encounter - Seth Rodríguez RN - 09/09/2024 5:22 PM EDT Appointment Request From: Ivonne Andrade With Provider: Grant Ac MD [Primary Care at [place]] Preferred Date Range: 09/10/2024 - 09/14/2024 Preferred [...] Upcoming Encounters Date Type Department Care Team ([facility] st Contact Info) Description 02/01/2025 3:30 PM EST Office Visit Ophthalmology at [address] [phone] Umair Chavez MD [address] [place] [address] [place] [address] documented as of this encounter Visit Diagnoses Not on filedocumented in this encounter Care Teams Supreme Court Judge Relationship Specialty Start Date End Date Grant Ac MD [address] [place] [address] PCP - General Family Medicine 07/02/17 documented as of this encounter
--- OUTSIDE RECORDS SUMMARY | 2025-01-11 16:25 | XMS_ITS | Encounter Summary ---
Author Organization [facility] [place] [address] Care Team Providers Care Latin American Studies Professor Name Role Phone Grant Ac MD Primary Care Provider +1- [phone] Reason for Visit * Reason Onset Date Comments Medication Refill 06/23/2021 Encounter Details Date Type Department Care Team (Late Contact Info) Description 06/23/2021 Refill Primary Care at [address] [phone] Grant Ac MD [address] [place] [address] Social History Tobacco Use Types Packs/Day [...] 3:30 PM EST Office Visit Ophthalmology at [facility] [address] [place] [address] Umair Chavez MD [address] [facility] [place] [address] documented as of this encounter Visit Diagnoses Not on filedocumented in this encounter Additional Health Concerns Infection Onset Date Last Indicated Resolved Time Rule Out Respiratory 08/16/2021 08/16/202108/17/2 022 1:13 AM EDT Rule Out COVID-19 08/16/2021 08/16/2021 08/17/2021 1:13 AM EDT Rule Out COVID-19 03/14/2024 03/14/2024 03/15/2024 12:01 AM EST documented as of this encounter Care Teams Latin American Studies Professor Relationship Specialty Start Date End Date Grant Ac MD [address] [place] [address] [place] [address] PCP - General Family Medicine 07/02/17 documented as of this encounter
--- OUTSIDE RECORDS SUMMARY | 2025-01-11 16:25 | XMS_ITS | Clinical Summary ---
Author Organization [email or web address] [facility] Address [address] [facility] [place] [address] [place] [address] Care Team Providers Care Plant Accountant Name Role Phone Unavailable Primary Care Provider Unavailabl e Allergies No known active allergies Medications No known medications Active Problems No known active problems Encounters Date Type Department Care Team Description 01/06/2025 1:00 PM EDT [facility] [address] [place] [address] Amanuel Bell DMD Dental abscess (Primary Dx) 01/06/2025 11:30 AM EDT Office Visit [facility] [address] [place] [address] Amanuel Bell DMD Dental abscess (Primary Dx) from Last 3 Months Social History Tobacco Use Types Packs/Day Years [...] Orientation Straight 01/06/2025 8: 06 AM EDT Last Filed Vital Signs Vital Sign Reading Time Taken Comments Blood Pressure 160/100 01/06/2025 1:07 PM EDT Pulse - - Temperature - - Respiratory Rate - - Oxygen Saturation - - Inhaled Oxygen Concentration - - Weight - - Height - - Body Mass Index - - Plan of Treatment Health Maintenance Due Date Last Done Comments Dental Oral Exam 1986 Dental Prophylaxis 1986 Dental X-Ray: Full Mouth 1986 Depression Screening 1986 HIV Screening 1986 Lipid Panel 1986 SDOH Screening 1986 Disability Screening 1986 Alcohol/Substance Use Screening 1998 Family Planning (PISQ) 2001 HPV Vaccines (1 - 3-dose series) 2001 Hepatitis C Screening 2004 DTaP/Tdap/Td Vaccines (1 - Tdap) 2005 Hepatitis B Vaccines (1 of 3 - 19+ 3-dose series) 2005 Pneumococcal Vaccine: Pediat rics (0 to 5 Years) and At-Risk Patients (6 to 49) Years (1 of 2 - PCV) 2005 Pap Smear 10/23/2007 Cervical Cancer Screening 2016 HPV/Cotest 2016 COVID-19 Vaccine (1 - 2023-2 5 season) 2024 Influenza Vaccine (#1) 2024 Tobacco Screening 01/06/2026 01/06/2025 Dental X-Ray: Bitewings 01/07/2026 01/06/2025 Zoster Vaccines (1 of 2) 2036 RSV Patients and Pa tients Aged 60 years or older (1 - 1-dose 75+ series) 2061 HIB Vaccines Aged Out No longer eligi ble based on patient's age to complete this topic Hepatitis A Vaccines Aged Out No long er eligible based on patient's age to complete this topic IPV Vaccines Aged Out No longer eligi ble based on patient's age to complete this topic Meningococcal B Vaccine Aged Out No l onger eligible based on patient's age to complete this topic Meningococcal Vaccine Aged Out No kelsi peter eligible based on patient's age to complete this topic RSV under 20 months Aged Out No longe r eligible based on patient's age to complete this topic Rotavirus Vaccines Aged Out No longer eligible based on patient's age to complete this topic Procedures Procedure Name Priority Date/Time Associated Diagnosis Comments 18 EXTRACTION, ERUPTED TOOTH OR EXPOSED ROOT (ELEVATION/FORCEPS REMOVAL) Routine 01/06/2025 1:00 PM EDT Dental abscess CASE PRESENTATION, DETAILED AND EXTENSIVE TREATMENT PLANNING Routine 01/06/2025 11:30 AM EDT Dental abscess INTRAORAL - PERIAPICAL FIRST RADIOGRAPHIC IMAGE Routine 01/06/2025 11:30 AM EDT Dental abscess BITEWING - SINGLE RADIOGRAPHIC IMAGE Routine 01/06/2025 11:30 AM EDT Dental abscess LIMITED ORAL EVALUATION - PROBLEM FOCUSED Routine 01/06/2025 11:30 AM EDT Dental abscess 18 MO AMALGAM FILLING Routine 01/06/2025 12:00 AM EDT from Last 3 Months Insurance [place] AD[place]
--- OUTSIDE RECORDS SUMMARY | 2025-01-11 16:25 | XMS_ITS | Encounter Summary ---
Author Organization [facility] Address [facility] [place] [address] Care Team Providers Care Storage Worker Name Role Phone Grant Ac MD Primary Care Provider [phone]- [phone] Reason for Visit * Reason Comments Medication Refill Encounter Details Date Type Department Care Team ([facility] Contact Info) Description 04/09/2023 Refill Otolaryngology at [address] [phone] Ninfa Julian PA [address] [place] [address] [phone] Nasal obstruction; Chronic allergic rhinitis Social History [...] 3:30 PM EST Office Visit Ophthalmology at [address] [phone] Umair Chavez MD [address] [place] [address] [place] [address] documented as of this encounter Visit Diagnoses Diagnosis Nasal obstruction Other diseases of nasal cavity and sinuses Chronic allergic rhinitis Allergic rhinitis, cause unspecified documented in this encounter Additional Health Concerns Infection Onset Date Last Indicated Resolved Time Rule Out COVID-19 03/14/2024 03/14/2024 03/15/2024 12:01 AM EST documented as of this encounter Care Teams Storage Worker Relationship Specialty Start Date End Date Grant Ac MD [address] [place] [phone] PCP - General Family Medicine 07/02/17 documented as of this encounter
== END 2025-01-11 13:51 | disposition home or self-care (01) ==
LOC: HO.PMC 12:55
PROVIDERS: PCP Student in an Organized Health Care Education/Training Program; Referring Provider Student in an Organized Health Care Education/Training Program; Visit Provider Internal Medicine
DX: M54.12 Radiculopathy, cervical region (principal); M54.51 Vertebrogenic low back pain
CPT/HCPCS: 99204

== ENCOUNTER → 2025-01-11 12:55 | Outpatient (BNVA) | payer OTHER, SELFPAY | PROVIDERS: PCP Student in an Organized Health Care Education/Training Program; Referring Provider Student in an Organized Health Care Education/Training Program; Visit Provider Internal Medicine | DX: M54.51 Vertebrogenic low back pain (principal); M50.90 Cervical disc disorder, unspecified, unspecified cervical region | CPT/HCPCS: 99202 ==

== ENCOUNTER 2025-01-13 09:55 | Outpatient (AMB) | payer OTHER, SELFPAY ==
--- OUTSIDE RECORDS SUMMARY | 2008-02-25 08:04 | XMS_ITS | Continuity of Care Document ---
Author Organization [facility] Address [address] [place] [address] Phone Care Team Providers Care Rivet Sticker Name Role Phone Jeanne Sow Unavailable Unavailable Advance Directives Directive Yes / No Effective Date File Name No Information Encounters Encounter Description Practice Location Reason(s) For Visit Diagnoses Date Provider [facility], [address] [place] [address], [facility], tel:[phone] [address] [place] [address] No Information 2007 Miesha Angel. 70 [facility], [id number] [address] [place] [address], [facility], . tel:[phone] Family History Family Member Type Diagnosis Age At Onset No Information Payers Payer name Insurance type Covered green party ID Authoriza tion(s) No Information Social History Type Description Quantity Date Captured Comments Sex Female Smoking Status No Information Chief Complaint And Reason For Visit No Information History Of Present Illness Encounter Date Complaint History Of Prese nt Illness No Information Instructions Date Instruction Additional Infor mation No Information Assessments Type Assessment Date No Information
--- OUTSIDE RECORDS SUMMARY | 2025-01-12 15:30 | XMS_ITS | Encounter Summary ---
Author Organization [employer] Address [address] [place] [address] Care Team Providers Care Catalytic Converter Operator Helper Name Role Phone Unavailable Primary Care Provider Unavailabl e Reason for Visit * Reason Comments Dental Pain Pain on upper left m olar area and lower left molar area still sore from ext last week Encounter Details Date Type Department Care Team (Late st Contact Info) Description 01/12/2025 3:30 PM EDT Office Visit [facility] [address] [place] [address] Amanuel Bell DMD [address] [place] [address] Dental abscess (Primary Dx) Social History Tobacco [...] Progress Notes * Amanuel Bell DMD - 01/12/2025 3:30 PM EDT Dental procedures in this visit D9110 - PALLIATIVE (EMERGENCY) TREATMENT OF DENTAL PAIN - MINOR PROCEDURE (Completed) Service provider: Amanuel Bell DMD Billing provider: Amanuel Bell DMD D0270 - BITEWING - SINGLE RADIOGRAPHIC IMAGE (Completed) Service provider: Amanuel Bell DMD Billing provider: Amanuel Bell DMD [id number] - INTRAORAL - PERIAPICAL FIRST RADIOGRAPHIC IMAGE (Completed) Service provider: Amanuel Bell DMD Billing provider: Amanuel Bell DMD Patient ID: Ivonne Andrade is a 39 y.o. female. Time Out: Timeout Date: 01/12/25 (exam), Timeout Time: 1540 Location: [facility] Tooth: UL and LL Procedure: Exam and X-rays Verified the above with patient, accounting assistant, and provider. Confirmed via patient's chart, intraorally and by radiographs. Detail Sergeant: not applicable Chief Complaint Patient presents with Dental Pain Pain on upper left molar area and lower left molar area still sore from ext last week Medical Hx: Vitals: There were no vitals taken for this visit. Medical History[1] Medications: Encounter Medications[2] HPI: Pt presented 1 wk ago with LL pain and #18 was extracted uneventfully Pt states she has been having pain since then, and that it has spread to left maxillary posterior teeth Pt concerned she has infection in LL Pt confirms she has smoked since extraction Objective: Tooth: #14, #15, and #18 Radiographs Taken: BW(s) and PA(s) Radiographic Findings: No abnormal findings - existing restorations not close to pulp Clinical Findings: #14,15 existing amalgam restorations, moderate plaque and calculus buildup, no gingival or vestibular swelling #18 extraction site with secondary closure nearly complete Gingival swelling present just anterior to socket, tender to palpation Able to express purulence with manual manipulation Other Findings: #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 Stressed importance of not smoking to prevent further complications with healing Strongly advise comp exam to formulate treatment plan Pt set up for prophy/exam Pt expressed understanding, all questions answered. Assessment/Plan: D0150/Prophy #14 rachell Prescriptions: amox/peridex details in EHR Pt tolerated procedure well, all questions answered. Dismissed in good condition. NV: D0150/Prophy Fisher Diving: Leonie Catherine Dentist: Amanuel Bell DMD [1] Past Medical History: Diagnosis Date Known health problems: none [2] Outpatient Encounter Medications as of 01/12/2025 Medication Sig Dispense Refill amoxicillin (Amoxil) 500 MG capsule Take 1 capsule (500 mg) by mouth every 8 (eight) hours for 7 days. 21 capsule 0 chlorhexidine (Peridex) 0.12 % solution Swish 15 mL morning and night for 1 minute. Spit, do not swallow. Do not eat or drink for 30 minutes following use. 473 mL 0 No facility-administered encounter medications on file as of 01/12/2025. documented in this encounter Plan of Treatment Upcoming Encounters Date Type Department Care Team (Late st Contact Info) Description 01/14/2025 9:00 AM EDT Office Visit [facility] [address] [place] [address] Abbi Murrieta [address] [place], [place] [phone] Scheduled Orders Name Type Priority Associated Diagnoses Orde r Schedule 14 MOL 14 MOL RESIN-BASED COMPOSITE - 3 SURF, POSTERIOR Dental Routine [address] arting 01/12/2025 INTRAORAL - COMPLETE SERIES OF RADIOGRAPHIC IMAGES Dental Routine [address] arting 01/12/2025 PROPHYLAXIS - ADULT Dental Routine 1 Occ urrences starting 01/12/2025 documented as of this encounter Procedures Procedure Name Priority Date/Time Associated Diagnosis Comments PALLIATIVE (EMERGENCY) TREATMENT OF DENTAL PAIN - MINOR PROCEDURE Routine 01/12/2025 3:30 PM EDT Dental abscess INTRAORAL - PERIAPICAL FIRST RADIOGRAPHIC IMAGE Routine 01/12/2025 3:30 PM EDT Dental abscess BITEWING - SINGLE RADIOGRAPHIC IMAGE Routine 01/12/2025 3:30 PM EDT Dental abscess 15 O AMALGAM FILLING Routine 01/12/2025 12:00 AM EDT 14 MOL AMALGAM FILLING Routine 12:00 AM EDT 13 EXTRACTION Routine 01/12/2025 12:00 AM EDT 16 EXTRACTION Routine 01/12/2025 12:00 AM EDT documented in this encounter Visit Diagnoses Diagnosis Dental abscess- Primary Periapical abscess without sinus documented in this encounter
--- NOTE | 2025-01-13 10:00 | MHC.PC.OV ---
Vital Signs 01/13/25 10:05 Height 5 ft 2.6 in Weight 202 lb 2 oz BMI 36.3 BP 122/57 L Blood Pressure Location Rt brachial Position Sitting Respiration 20 Pulse 95 Pulse Source Monitor Temp 97.8 F Temp Source Oral Pulse Oximetry (%) 97 Oxygen Delivery Method Room Air Intake Visit Reasons: follow up pain management Intake Note: follow up from pain managment Records Section Supervisor Required: No Accompanied by: Self / Same As Patient Allergies No Known Allergies Allergy (Verified 01/13/25 10:03) Medication List - Last Reconciled 01/13/25 by Elier Borrero MD ascorbic acid (vitamin C) 500 mg PO DAILY cyclobenzaprine 10 mg PO BEDTIME ferrous sulfate (iron) 325 mg PO DAILY ibuprofen 600 mg PO Q6H PRN losartan 25 mg PO DAILY omeprazole 20 mg PO DAILY tramadol 50 mg PO Q8H PRN Tobacco use date assessed: 01/13/25 Dental Screening Dental Screen Date: 01/13/25 Did you have a dental visit in the last 12 months?: Yes Did you have a dental problem in the last 6 months where you did not have access to dental care?: Yes Was dental information given to patient?: Patient has dentist HPI HPI Comments History of Present Illness Details History of Present Illness The patient is a 39-year-old female presenting for follow-up on chronic pain management and medication management. Chronic Pain & Degenerative Disc Disease: The patient reports chronic pain related to her neck and back. Recent MRI reports reviewed by a rail car painter/sandblaster revealed that her cervical spine is straight and her lumbar discs at L4 and L5 are flat. The specialist commented that her spine resembles that of an 80-year-old and was surprised she had not been in a severe car crash. Her rail car painter/sandblaster has recommended cortisone injections for her neck, avoiding wound care physician as it worsens her condition, and pursuing a nerve block procedure pending insurance approval. Obesity: The patient's rail car painter/sandblaster recommended weight loss as a crucial part of her treatment plan, which she acknowledged would help tremendously. She has also been advised to swim three times a week, though she notes that finding time is a challenge due to her business and family responsibilities. Chronic Opioid Therapy: The patient is currently taking tramadol every six hours for pain management. Dental Abscess: The patient reports a recent tooth extraction after which she developed a gum infection with significant pus formation. She states her dentist indicated there may not have been enough antibiotic used during the procedure and has a surgery scheduled for tomorrow to address the infection. Surgical History: - Tooth extraction, recent Medications: - Tramadol: taken every six hours for pain. 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 - Family Status: She is and has children, including a son on the autism spectrum. - Exercise: Her rail car painter/sandblaster recommended swimming three times a week, but the patient reports difficulty finding time due to her busy schedule. - Nutritional Intake: Patient reports that she does not eat excessively but that her eating schedule is irregular. Diagnostic Results: - MRI: Reports show a straight cervical spine and flat discs at L4 and L5. Past Medical History - Chronic back pain - Chronic neck pain - Degenerative disc disease of the cervical and lumbar spine - Denies history of major trauma such as a car crash. Health Maintenance - Weight management discussed, with a referral to the medical weight management clinic. - Discussed and initiating GLP-1 agonist therapy (tirzepatide/Zepbound) for weight loss. - Recommended swimming three times a week for exercise. - Recommended starting physical therapy as soon as possible. [facility] Medical History (Updated 01/13/25 @ 10:13 by Elier Borrero MD) Class 2 obesity History of fall [employer] prescription opiate use Chronic pain syndrome Lumbar disc herniation Cervical vertebral fusion Surgical History History of back surgery Family History Father Prostate cancer Mother Breast cancer Social History (Updated 01/13/25 @ 10:04 by Ray Perkins MA) Housing: Condominium Alcohol intake: current Alcohol intake frequency: does not drink Patient Tobacco Use Status: Current everyday Tobacco user Tobacco use type: Cigarette Cigarettes Per Day: 3 service: No Current occupational status: employed Cognitive needs: Yes (walker) Hearing needs: No Vision needs: No Questionnaire Thrive Questionnaire Date Thrive assessed: 01/01/25 I am a: Patient What is your living situation today?: I have a steady place to live Within the past 12 months, did the food you bought not last and you didn't have the money to get more?: Never true Within the past 12 months, did you worry whether your food would run out before you got money to buy more?: Never true Do you have trouble paying for medicines?: No Do you have trouble getting transportation to medical appointments?: No Do you have trouble paying your heating and electricity bill?: No Do you have trouble taking care of your child, family member or friend?: No Do you have trouble with day-to-day activities such as bathing, preparing meals, shopping, managing finances, etc.?: No Are you currently unemployed and looking for a job?: No Are you interested in more education?: No Please select the resources that you would like help with: None Currently or been in a relationship where the following occur: I choose not to answer THRIVE Score: 0 EUGENIO-7 AMB Questionnaire EUGENIO-7 Date EUGENIO - 7 assessed: 01/01/25 Source: Developed by Drs. Phu Sanders, Darcy Langley, Jasson Ricardo and colleagues, with an educational letha from [employer]. Review of Systems Narrative Review of Systems - Constitutional: Denies diabetes. - Musculoskeletal: Reports chronic neck and back pain. - Neurological: Reports pain that affects her leg. - Dental: Reports gum infection with pus formation following a recent tooth extraction. 10-point ROS reviewed and negative except as noted in HPI Physical exam (Primary Care) Vital Signs: Last Vital Signs Temp 97.8 F 01/13/25 10:05 Pulse 95 01/13/25 10:05 Resp 20 01/13/25 10:05 BP 122/57 L 01/13/25 10:05 Pulse Ox 97 01/13/25 10:05 Oxygen Delivery Method Room Air 01/13/25 10:05 BMI result Body Mass Index 36.3 Tobacco/Smoking Status: Tobacco use Status Tobacco use date assessed 01/13/25 01/13/25 10:07 Patient Tobacco Use Status Current everyday Tobacco 01/13/25 10:07 Tobacco use type Cigarette 01/13/25 10:07 Thrive Assessment: Date of Thrive Assessment Date Thrive assessed 01/01/25 01/13/25 10:07 Currently or been in a relationship where the following occur: I choose not to answer Narrative Physical Exam General: Well-appearing, in no acute distress. Vital signs: Within normal limits. HEENT: Normocephalic, atraumatic. PERRLA, EOMI. Conjunctiva clear, sclera anicteric. Oropharynx clear, mucous membranes moist. TMs intact bilaterally. Neck: Supple, no lymphadenopathy, no thyromegaly, no JVD or carotid bruits. Patient reports neck issues, advised against chiropractic visits, and recommended cortisone injections. Cardiovascular: RRR, normal S1/S2, no murmurs, rubs, or gallops. Peripheral pulses 2+ and symmetric. No edema. Respiratory: Lungs clear to auscultation bilaterally, no wheezes, rales, or rhonchi. Normal effort. Abdomen: Soft, non-tender, non-distended. Normoactive bowel sounds. No hepatosplenomegaly, no masses. MSK: Full range of motion, no joint swelling or deformity. Normal gait. Patient advised to start physical therapy and swimming for spine issues. Skin: Warm, dry, intact. No rashes, lesions, or pallor. Neuro: Alert and oriented x3. Cranial nerves II-XII intact. Strength 5/5 throughout. Sensation intact. Reflexes 2+ symmetric. Normal coordination and gait. Psych: Appropriate mood and affect. Normal judgment and insight. Coding Level of Care Code Est Pt Level 4 (38358) Diagnoses [employer] prescription opiate use Z79.891 Class 2 obesity E66.9 Spondylolisthesis, lumbar region M43.16 Cervical vertebral fusion M43.22 Vertebrogenic low back pain M54.51 Cervical disc disorder M50.90 Lumbar disc herniation M51.26 Chronic pain syndrome G89.4 Assessment & Plan Assessment & Plan (1) shelter prescription opiate use: Code(s): Z79.891 - shelter (current) use of opiate analgesic Category: Medical (2) Class 2 obesity: Code(s): E66.9 - Obesity, unspecified Category: Medical (3) Spondylolisthesis, lumbar region: Code(s): M43.16 - Spondylolisthesis, lumbar region Category: Medical (4) Cervical vertebral fusion: Code(s): M43.22 - Fusion of spine, cervical region Category: Medical (5) Vertebrogenic low back pain: Code(s): M54.51 - Vertebrogenic low back pain Category: Medical (6) Cervical disc disorder: Code(s): M50.90 - Cervical disc disorder, unspecified, unspecified cervical region Category: Medical (7) Lumbar disc herniation: Code(s): M51.26 - Other intervertebral disc displacement, lumbar region Category: Medical (8) Chronic pain syndrome: Code(s): G89.4 - Chronic pain syndrome Category: Medical Plan Consent The plan to taper Tramadol by reducing the frequency to every 8 hours, with the goal of assessing her underlying pain while minimizing withdrawal, was discussed. The patient was asked how the plan sounded and she provided verbal agreement. An extensive discussion was held regarding GLP-1 agonists for weight loss, specifically tirzepatide (Zepbound). The risks, benefits, alternatives (semaglutide), and costs of self-pay were reviewed. The patient provided verbal consent to proceed with a prescription for Zepbound. Patient was informed and verbally consented to the use of an ambient scribe for clinic note documentation during this visit. Plan 1. Chronic Pain & Degenerative Disc Disease - The patient will continue to follow the plan from her rail car painter/sandblaster, which includes a nerve block/ablation for her back, pending insurance approval, and cortisone injections for her neck. - The patient was advised to start physical therapy as soon as possible, and assistance was offered to schedule it with the in-house PT department. - Recommended swimming three times a week as advised by her pain specialist. 2. Chronic Opioid Therapy - A plan was initiated to start tapering the patient off tramadol to better assess her baseline pain. - The dosage will be reduced from every 6 hours to every 8 hours. - A 2-week supply of tramadol will be prescribed at the new frequency. - The patient will follow up in 2 weeks to reassess and continue the tapering process. 3. Obesity - A referral will be sent to the medical weight management clinic for a comprehensive approach. - After discussion, the patient elected to start tirzepatide (Zepbound) for weight loss via a self-pay option. - An order will be placed for Zepbound 2.5 mg subcutaneous injection weekly. - The patient was educated on the ordering process through a text link from the casting coordinator, the self-pay cost, the titration schedule, and the need to maintain adequate nutrition while on the medication. 4. Dental Abscess - The patient is scheduled for a surgical procedure with her dentist tomorrow to address the abscess; no further action is required at this visit. Discussion Notes I reviewed the patient's recent consultation with her rail car painter/sandblaster and his recommendations, which include a nerve block/ablation for her back, cortisone injections for her neck, and lifestyle changes like swimming. I explained the rationale for tapering her off tramadol, starting with a frequency reduction to every 8 hours, to better assess her baseline pain as she undergoes these other treatments while minimizing withdrawal symptoms. She agreed to this plan and will follow-up in two weeks. We had an extensive discussion about the importance of weight loss for her spinal condition. I am referring her to a medical weight management clinic for a comprehensive approach. We discussed GLP-1 agonist options, including the differences between semaglutide (Wegovy) and tirzepatide (Zepbound), the self-pay cost, titration schedule, and side effect profile. The patient consented to start Zepbound, and I will place the order for her, counseling her that she will receive a text link to complete the purchase and that she must make an effort to eat to avoid muscle loss. Patient Instructions - Take your tramadol every 8 hours instead of every 6 hours. - Return to the clinic in 2 weeks to check on your pain and talk about the next step in lowering your tramadol dose. - We are referring you to the medical weight management clinic for extra help with weight loss. - You have decided to start a new weight loss medicine called Zepbound. - You will get a text message with a link to order the medication; you will need to click the link and pay for it yourself. - When you receive the medicine, inject the starting dose of 2.5mg once a week. - It is important to remember to eat your meals, even if you don't feel hungry, to stay healthy. - Continue with your appointments with the pain management doctor for the procedures on your neck and back. - Try to swim three times a week as your specialist recommended. - Make sure to go to your dental surgery appointment tomorrow for your gum infection. Medical Decision Making The patient is a 39-year-old female with severe, debilitating chronic pain from advanced degenerative disc disease in her cervical and lumbar spine, with MRI findings disproportionate to her age. Her care is complex, involving coordination with her rail car painter/sandblaster. My decision to initiate a tramadol taper, starting with a decrease in frequency to Q8H, is based on the need to assess her underlying pain as she receives definitive treatments like nerve blocks and injections, while also addressing the risks of long-term opioid therapy. This gradual reduction will help minimize withdrawal symptoms. Obesity is a major contributing factor to her spinal load and pain. Given the critical need for weight loss, I am referring her to the medical weight management clinic and have also prescribed tirzepatide (Zepbound) at her request via a self-pay pathway. The potential benefits of significant weight loss on her pain, function, and long-term health outcome justify this approach, especially since tirzepatide has a more favorable side-effect profile. The overall goal is a multimodal strategy to improve quality of life, reduce pain, and increase function through coordinated care, medication optimization, and aggressive weight management. Total time spent caring for the patient today was 30 minutes. This includes time spent before the visit reviewing the chart, time spent documenting, and time spent reviewing laboratory results, diagnostic imaging, medications, performing a medically necessary evaluation, counseling on diagnoses, care coordination. Orders: Referrals Medical Weight Management Referral E66.9 - Obesity, unspecified Medications: New tramadol 50 mg PO Q8H PRN 42 tabs 0RF pain Discontinued tramadol Discontinued Reason: Duplicate 100 mg PO Q6H PRN 40 tabs 0RF pain G89.4 - Chronic pain syndrome, M43.16 - Spondylolisthesis, lumbar region, M51.26 - Other intervertebral disc displacement, lumbar region, Z98.890 - Other specified postprocedural states
[2025-01-13 10:05] VITALS: BP 122/57; PULSE 95; RESP 20; TEMP 36.6; O2SAT 97; BMI 36.3
--- OUTSIDE RECORDS SUMMARY | 2025-01-13 11:58 | XMS_ITS | Encounter Summary ---
Author Organization [facility] Address [facility] [place] [address] Care Team Providers Care Solar Installation Manager Name Role Phone Grant Ac MD Primary Care Provider [phone]- [phone] Reason for Visit * Reason Comments Medication Refill Encounter Details Date Type Department Care Team ([facility] Contact Info) Description 06/04/2023 Refill Otolaryngology at [address] [phone] Ninfa Julian PA [address] [place] [address] [phone] Nasal obstruction; Chronic allergic rhinitis Social History [...] 3:30 PM EST Office Visit Ophthalmology at [address] [phone] Umair Chavez MD [address] [place] [address] [place] [address] documented as of this encounter Visit Diagnoses Diagnosis Nasal obstruction Other diseases of nasal cavity and sinuses Chronic allergic rhinitis Allergic rhinitis, cause unspecified documented in this encounter Additional Health Concerns Infection Onset Date Last Indicated Resolved Time Rule Out COVID-19 03/14/2024 03/14/2024 03/15/2024 12:01 AM EST documented as of this encounter Care Teams Solar Installation Manager Relationship Specialty Start Date End Date Grant Ac MD [address] [place] [address] PCP - General Family Medicine 07/02/17 documented as of this encounter
--- OUTSIDE RECORDS SUMMARY | 2025-01-13 11:58 | XMS_ITS | Encounter Summary ---
Author Organization [facility] [place] [address] Care Team Providers Care Retail Performance Coach Name Role Phone Grant Ac MD Primary Care Provider [phone]- [phone] Reason for Visit * Reason Onset Date Comments Medication Refill 02/10/2022 Encounter Details Date Type Department Care Team (Late Contact Info) Description 02/10/2022 Refill Primary Care at [address] [phone] Grant Ac MD [address] [place] [id number] Social History Tobacco Use Types Packs/Day [...] 3:30 PM EST Office Visit Ophthalmology at [facility] [address] [place] [address] Umair Chavez MD [address] [facility] [address] documented as of this encounter Visit Diagnoses Not on filedocumented in this encounter Additional Health Concerns Infection Onset Date Last Indicated Resolved Time Rule Out COVID-19 03/14/2024 03/14/2024 03/15/2024 12:01 AM EST documented as of this encounter Care Teams Retail Performance Coach Relationship Specialty Start Date End Date Grant Ac MD [address] [place] [address] PCP - General Family Medicine 07/02/17 documented as of this encounter
--- OUTSIDE RECORDS SUMMARY | 2025-01-13 11:58 | XMS_ITS | Encounter Summary ---
Author Organization [facility] Address [facility] [place] [address] Care Team Providers Care Service Line Coordinator Name Role Phone Grant Ac MD Primary Care Provider [phone]- [phone] Reason for Visit * Reason Comments Medication Refill Encounter Details Date Type Department Care Team ([facility] Contact Info) Description 04/09/2023 Refill Otolaryngology at [address] [phone] Ninfa Julian PA [address] [place] [address] [phone] Nasal obstruction; Chronic allergic rhinitis Social History [...] in a fci (including now)? No 04/12/2022 Comments No Sex [...] 3:30 PM EST Office Visit Ophthalmology at [address] [phone] Umair Chavez MD [address] [place] [address] [place] [address] documented as of this encounter Visit Diagnoses Diagnosis Nasal obstruction Other diseases of nasal cavity and sinuses Chronic allergic rhinitis Allergic rhinitis, cause unspecified documented in this encounter Additional Health Concerns Infection Onset Date Last Indicated Resolved Time Rule Out COVID-19 03/14/2024 03/14/2024 03/15/2024 12:01 AM EST documented as of this encounter Care Teams Service Line Coordinator Relationship Specialty Start Date End Date Grant Ac MD [address] [place] [id number] PCP - General Family Medicine 07/02/17 documented as of this encounter
--- OUTSIDE RECORDS SUMMARY | 2025-01-13 11:58 | XMS_ITS | Clinical Summary ---
Author Organization Formerly [facility] Address One [facility] [place] [address] Care Team Providers Care Professor Of Latin American Studies Name Role Phone Grant Ac MD Primary Care Provider +1- [phone] Allergies Active Allergy Reactions Criticality Noted Date Comments Lisinopril Other (See Comments) 02/28/2023 Cough Medications fluticasone propionate (Flonase) 50 mcg/actuation [place], SuspensionIndica tions:Acute non-recurrent frontal sinusitis 2 sprays [...] - Signed DPR Vinicio Gunn () permenant [phone] Problem Noted Date Diagnosed Date Right arm numbness 11/19/2023 Depression 08/30/2023 Lumbar disc herniation 11/28/2022 Snoring 05/11/2022 Nasal obstruction 05/11/2022 Chronic allergic rhinitis 05/11/2022 Frontal headache 05/11/2022 Herniation of lumbar intervertebral disc with ra diculopathy 01/08/2022 Radiculopathy of cervical region 08/17/2021 Numbness 06/16/2021 Pain of left sacroiliac joint 06/16/2021 Tendinitis of right rotator cuff 06/30/2020 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 2019 Overview [...] Team Description 11/27/2024 Refill Primary Care at [address] [phone] Grant Ac MD Other chronic pain; Recurrent low back pain 11/16/2024 Refill Primary Care at [address] [phone] Grant Ac MD Other chronic pain; Recurrent low back pain 10/28/2024 Refill Primary Care at [address] [address] Brian Horne PA Other chronic pain; Recurrent low back pain 10/23/2024 Telephone Primary Care at [address] [address] Marcelle Lockhart LPN 10/19/2024 Refill Primary Care at [address] [phone] Grant Ac MD Other chronic pain; Recurrent low back pain; custodial 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 10/17/2024 1:54 PM EDT - 10/17/2024 11:59 PM EDT Hospital Encounter MRI at [address] [address] Jeni Butler APRN Slurred speech; Generalized weakness Discharge Disposition: Home 10/16/2024 10:30 AM EDT Laboratory Appointment Lab at [address] [address] Encounter for vitamin deficiency screening; Slurred speech; Generalized weakness; Vitamin D deficiency; Numbness; Facial twitching 10/16/2024 10:00 AM EDT - 10/16/2024 11:59 PM EDT Hospital Encounter CAT Scan at [address] [phone] Jeni Butler APRN Slurred speech; Generalized weakness Discharge Disposition: Home 10/16/2024 9:35 AM EDT Office Visit Primary Care at [address] [address] Jeni Butler APRN Recurrent low back pain; Slurred speech; Facial twitching; Generalized weakness; Numbness; Encounter for vitamin deficiency screening 10/16/2024 Legacy Encounter Primary Care at [address] [phone] Jeni Butler APRN 10/16/2024 Results Follow-Up Primary Care at [address] [address] Jeni Butler, SELENA CT Head wo Contrast (Standard), Vitamin D, 25-Hydroxy, Comprehensive metabolic panel Fasting required, MRI Brain wwo Contrast (Standard) 10/16/2024 Travel from Last 3 Months Immunizations Immunization Administration Dates Next Due Covid-19 Monovalent (Pfizer Comirnaty purple cap) 12yrs+ (5400-5769) 05/17/2020 Influenza (Flucelvax) Trival ent Preservative Free, [...] place to sleep or slept in a [facility] (including now)? No 04/12/2022 DH IPV Inpatient [...] Upcoming Encounters Date Type Department Care Team ([facility] st Contact Info) Description 02/01/2025 3:30 PM EST Office Visit Ophthalmology at [facility] [address] [place] [address] Umair Chavez MD [address] [facility] [place] [address] Health Maintenance Due Date Last Done [...] history exists Medical Devices Implanted Type Area Product Representative Device Identifier Shelf Expiration Date Model / Serial / Lot Seala,Dura,Spi ne,Ext,5ml ([id number]) - [id number] Implanted:Qty: 1 on 04/21/2019 by Kunal Cruz MD at [facility] IMPLANTS DO NOT USE Applauze - [employer]TE[employer] LI [id number] / / [id number] Procedures Procedure Name Priority Date/Time Associated Diagnosis [...] exam HPV Routine 01/26/2021 11:18 AM EST POT SANDER CYTOLOGY FINAL REPORT Routine 01/26/2021 11:18 AM EST from Last 3 Months or Most Recently Relevant to Health Maintenance Results * MRI Brain wwo Contrast (Standard) (10/17/2024 2:56 PM EDT) WORKSTATION ID [id number] DH RAD Anatomical Region Laterality Modality Head [...] who have questions please contact the health day care teacher that requested your imaging first. Electronically signed by: ISAI INGRAM MD, [facility] ([phone]), at 10/17/2024 4:31 PM Narrative 10/17/2024 4:31 [...] patients who have questions please contactthe health day care teacher that requested your imaging first. Electronically signed by: ISAI INGRAM MD, [facility]([phone]), at 10/17/2024 4:31 PM Jeni Butler GENERAL EDUCATION INSTRUCTOR IMG MRI ORDERABLES Final Result * CT Head wo Contrast (Standard) (10/16/2024 10:37 AM EDT) WORKSTATION ID [id number] RAD Anatomical Region Laterality Modality Head Computed [...] who have questions please contact the health day care teacher that requested your imaging first. Electronically signed by: ISAI INGRAM MD, [facility] ([phone]), at 10/16/2024 10:39 AM Narrative 10/16/2024 10:39 [...] patients who have questions please contactthe health day care teacher that requested your imaging first. Electronically signed by: ISAI INGRAM MD, [facility]([phone]), at 10/16/2024 10:39 AM us Jeni Butler APRN IMG CT ORDERABLES Final R esult * Vitamin D, 25-Hydroxy (10/16/2024 10:18 AM EDT) Vitamin D Total 25 OH 23 21 - 100 ng/ml 10/16/2024 1:17 PM EDT [facility] Vitamin D Total 25 OH Interp Insufficient 10/16/2024 1:17 PM EDT [facility] Blood VENOUS BLOOD SPECIMEN / Unknown Venipuncture / Unknown 10/16/2024 10:18 AM EDT 10/16/2024 10:18 AM EDT us Jeni Butler APRN CHEMISTRY ORDERABLES Ivette l Result [facility] [address] [place] [address] * Vitamin B12 (10/16/2024 10:18 AM EDT) Vitamin B12 746 232 - 1,245 pg/mL 10/16/2024 4:26 PM EDT [facility] Blood VENOUS BLOOD SPECIMEN / Unknown Venipuncture / Unknown 10/16/2024 10:18 AM EDT 10/16/2024 10:18 AM EDT us Jeni Butler GENERAL EDUCATION INSTRUCTOR CHEMISTRY ORDERABLES Ivette l Result [facility] [address] [phone] * (ABNORMAL) Comprehensive metabolic panel Fasting required (10/16/2024 10:18 AM EDT) Glucose 91 65 - 99 mg/dL 10/16/2024 11:03 AM EDT [facility] Comment: Fasting Glucose Interpretive Criteria: Normal: 65-99 mg/dL Prediabetes: 100-125 mg/dL Consistent with Diabetes Mellitus: > or = 126 mg/dL Classification and Diagnosis of Diabetes: Standards of Care in Diabetes - 2022. Diabetes Care 2022; 46:S19. Fasting is defined as no caloric intake for at least 8 hours. Blood Urea Nitrogen 7(L) 8 - 18 mg/dL 10/16/2024 11:03 AM T [facility] Creatinine 0.48(L) 0.70 - 1.20 mg/dL 10/16/2024 11:03 AM T [facility] Sodium 139 135 - 145 mMol/L 10/16/2024 11:03 AM T [facility] Potassium 4.4 3.5 - 5.0 mMol/L 10/16/2024 11:03 AM [facility] Chloride 98 98 - 107 mMol/L 10/16/2024 11:03 AM [facility] Carbon Dioxide 27 22 - 31 mMol/L 10/16/2024 11:03 AM [facility] Anion Gap 14 5 - 15 mMol/L 10/16/2024 11:03 AM [facility] Calcium 9.5 8.5 - 10.5 mg/dL 10/16/2024 11:03 AM T [facility] Protein, Total 6.9 6.1 - 8.0 g/dL 10/16/2024 11:03 AM EDT [facility] Albumin 4.1 3.2 - 5.2 g/dL 10/16/2024 11:03 AM T [facility] Aspartate Aminotransferase 21 <=30 unit/L 10/16/2024 11:03 AM EDT [facility] Alanine Aminotransferase 20 0 - 30 unit/L 10/16/2024 11:03 AM [facility] Alkaline Phosphatase 125(H) 35 - 105 unit/L 10/16/2024 11:03 AM T [facility] Bilirubin, Total 0.3 <=1.3 mg/dL 10/16/2024 11:03 AM [facility] Est Glomerular Filtration Rate - Female 125 >=90 mL/min/1. 73 m 10/16/2024 11:03 AM [facility] Comment: This patient's estimated GFR [...] Fasting Status Yes 10/16/2024 11:03 AM T [facility] Blood VENOUS BLOOD SPECIMEN / Unknown Venipuncture / Unknown 10/16/2024 10:18 AM EDT 10/16/2024 10:18 AM EDT us Jeni Butler GENERAL EDUCATION INSTRUCTOR CHEMISTRY ORDERABLES Ivette davida Result [facility] [address] [place] [address] * Lipid Panel (Reflex Direct LDL) (02/28/2023 10:19 AM EST) Cholesterol, Total 253 mg/dL [facility] Comment: Lower Risk: <200 mg/dL Average Risk: 200-239 mg/dL Higher Risk: >ir=453 mg/dL Triglyceride 194 mg/dL [facility] Comment: Average Risk/Lower Risk: <150 mg/dL Borderline High Risk: 150-199 mg/dL High Risk: 200-499 mg/dL Very High Risk: >tk=631 mg/dL HDL Cholesterol 48 mg/dL [facility] Comment: Males: Higher Risk: <40 mg/dL Females: Higher Risk: <50 mg/dL LDL Cholesterol 166 mg/dL [facility] Comment: Lowest Risk: <100 mg/dL Lower Risk: 100-129 mg/dL Borderline High Risk: 130-159 mg/dL High Risk: 160-189 mg/dL Very High Risk: >ot=154 mg/dL Cholesterol/HDL Ratio 5.3 ratio [facility] Lipid Interpretation See Note [facility] Comment: Lipid management should be guided by a patient s ASCVD risk, goals and preferences. ACC/AHA Guidelines recommend high intensity statin if clinical ASCVD or LDL greater than or equal to 190 mg/dL. http://[employer].com/BYT-CKV-Iguayjjgv Adults aged 40-75 with LDL 70-189 mg/dL should have their 10 year ASCVD risk estimated with the ACC/AHA ASCVD risk hourly sign language interpreter http://tools.acc.org/ZTQNH-Fdni-Muahqkddu/ Statin should be discussed if risk greater [...] Grant Ac MD CHEMISTRY ORDERABLES Final Result [facility] [address] [place] [address] * HPV (01/26/2021 11:18 AM EST) HPV16 NEGATIVE NEGATIVE [facility] HPV 18 NEGATIVE NEGATIVE [facility] HPV Other HR NEGATIVE NEGATIVE [facility] HPV Interpretation See Comment [facility] Comment: NEGATIVE for high-risk HPV [...] Agency Comment Spec In Lab Candace Garcia GENERAL EDUCATION INSTRUCTOR PATHOLOGY/CYTOLOGY ORDERAB LES Final Result Performing Organization Address [facility] Co de Phone Number [facility] [place] [address] * Pharmacy Technician Per Diem Cytology Final Report (01/26/2021 11:18 AM EST) Pharmacy Technician Per Diem Cytology Final Report [id number] Location: [facility] The signing pathologist has (i) examined the relevant preparation(s) for the specimen(s) and (ii) rendered or confirmed the diagnosis(es). . Pharmacy Technician Per Diem Final DIAGNOSIS Normal Negative for intraepithelial lesion or malignancy (NILM). For consensus guidelines for the management of cervical cancer screening test results, please see: http://www.asccp. org . Electronically signed by: Ravindra RYAN(ASCP)Asuncion Verified: 02/10/2021 15:07 Retail Sales Associate Bilingual Performed at: [place] [place], [place], [place] HPV RESULTS HPV16 (Result) Negative HPV18 [...] Clinical Genomics and Advanced Technology (CGAT) at [facility] [place] - Jose Carlos Bain, PhD, [facility], Director-[facility] STATEMENT OF ADEQUACY Specimen submitted is [...] Yes, history of previous abnormal Pap Prior POT SANDER Therapy: No Hist of HPV Vaccine: No [...] variables. For further information please contact the [facility] [place]. Reference: Ruma MATT. Rocket Motor Mechanic of Pap Smear Results. In: Cely BS, Conrad HH, ed. The Pap Smear. [place]: Jayson, 2002: 71-77. [facility] 01/26/2021 11:1 8 AM EST us Candace Garcia APRN PATHOLOGY/CYTOLOGY ORDERAB LES Final Result [facility] [place] [address] from Last 3 Months or Most Recently Relevant to Health Maintenance Insurance [id number] (Home) [address] [facility] [place] [address] [place] [employer] MED[place]ID Advance Directives Documents on File Type Date Recorded Patient Public Relations Representative Expl anation Personal Public Relations Representative 12/03/2019 8:36 AM * Attempt Cardiopulmonary Resuscitation [...] capacity to make decision: Yes Care Teams Professor Of Latin American Studies Relationship Specialty Start Date End Date Grant Ac MD [address] [facility] FAMILY [place] [address] PCP - General Family Medicine 07/02/17
--- OUTSIDE RECORDS SUMMARY | 2025-01-13 11:58 | XMS_ITS | Encounter Summary ---
Author Organization Formerly [facility] Address One [facility] [place] [address] Care Team Providers Care Marine Services Technician Name Role Phone Grant Ac MD Primary Care Provider +1- [phone] Reason for Visit * Reason Comments Medication Refill Encounter Details Date Type Department Care Team ([facility] Contact Info) Description 12/22/2022 Refill Primary Care at [address] [place] [phone] Grant Ac MD [address] [place] [address] [phone] Acute non-recurrent frontal sinusitis Social History Tobacco [...] place to sleep or slept in a half-way (including now)? No 04/12/2022 Comments No Sex and Gender Information Value Date Recorded Sex Assigned at Not on file Legal Sex Female 2:32 PM EDT Gender Identity Not on file Sexual Orientation Not on file documented as of this encounter Plan of Treatment Upcoming Encounters Date Type Department Care Team (Late st Contact Info) Description 02/01/2025 3:30 PM EST Office Visit Ophthalmology at [address] [phone] Umair Chavez MD [address] [place] [address] [place] [address] documented as of this encounter Visit Diagnoses Diagnosis Acute non-recurrent frontal sinusitis documented in this encounter Additional Health Concerns Infection Onset Date Last Indicated Resolved Time Rule Out COVID-19 03/14/2024 03/14/2024 03/15/2024 12:01 AM EST documented as of this encounter Care Teams Marine Services Technician Relationship Specialty Start Date End Date Grant Ac MD [address] [place] [address] [place] [address] PCP - General Family Medicine 07/02/17 documented as of this encounter
--- OUTSIDE RECORDS SUMMARY | 2025-01-13 11:58 | XMS_ITS | Encounter Summary ---
Author Organization [employer] Address [address] [place] [address] Care Team Providers Care Biodiesel Product Manager Name Role Phone Unavailable Primary Care Provider Unavailabl e Reason for Visit * Reason Onset Date Comments Dr[facility] 01/13/2025 Encounter Details Date Type Department Care Team (Late Contact Info) Description 01/13/2025 Telephone [facility] [address] [place] [address] Amanuel Bell, DMD [address] [place] [address] Dr[facility] Social History Tobacco Use Types Packs/Day Years [...] AM EDT documented as of this encounter Miscellaneous Notes * Telephone Encounter - Lula Barreto - 01/13/2025 11:18 AM EDT Patient had [facility] as pharmacy for medication to be sent in. However, they do not have the antibiotic that was sent over for patient and it will be 4 days before they have it. [facility] added [facility] [address] [facility] request and she is requesting for script to be sent there documented in this encounter Plan of Treatment Upcoming Encounters Date Type Department Care Team ([facility] Contact Info) Description 01/14/2025 9:00 AM EDT Office Visit [facility] [address] [place] [address] Abbi Murrieta [address] [place] [address] documented as of this encounter Visit Diagnoses Not on filedocumented in this encounter
--- OUTSIDE RECORDS SUMMARY | 2025-01-13 11:58 | XMS_ITS | Encounter Summary ---
Author Organization [facility]ly [facility] [place] [address] Care Team Providers Care Animal Laboratory Helper Name Role Phone Grant Ac MD Primary Care Provider +1- [phone] Reason for Visit * Reason Onset Date Comments Medication Refill 06/23/2021 Encounter Details Date Type Department Care Team (Late Contact Info) Description 06/23/2021 Refill Primary Care at [address] [phone] Garnt Ac MD [address] [place] [address] Social History Tobacco Use Types Packs/Day [...] 3:30 PM EST Office Visit Ophthalmology at [facility] [address] [place] [address] Umair Chavez MD [address] [facility] [place] [address] documented as of this encounter Visit Diagnoses Not on filedocumented in this encounter Additional Health Concerns Infection Onset Date Last Indicated Resolved Time Rule Out Respiratory 08/16/2021 08/16/202108/17/2 022 1:13 AM EDT Rule Out COVID-19 08/16/2021 08/16/2021 08/17/2021 1:13 AM EDT Rule Out COVID-19 03/14/2024 03/14/2024 03/15/2024 12:01 AM EST documented as of this encounter Care Teams Animal Laboratory Helper Relationship Specialty Start Date End Date Grant Ac MD [address] [place] [address] [place] [address] PCP - General Family Medicine 07/02/17 documented as of this encounter
--- OUTSIDE RECORDS SUMMARY | 2025-01-13 11:58 | XMS_ITS | Clinical Summary ---
Author Organization [employer] [facility] Address [address] [place] [address] Care Team Providers Care Community Health Outreach Worker Name Role Phone Unavailable Primary Care Provider Unavailabl e Allergies No known active allergies Medications amoxicillin (Amoxil) 500 MG capsule Take 1 capsule (500 mg) by mouth every 8 (eight) hours for 7 days. 21 capsule 01/20/20 25 Active chlorhexidine (Peridex) 0.12 % solution Swish 15 mL morning and night for 1 minute. Spit, do not swallow. Do not eat or drink for 30 minutes following use. 473 mL 5 Active Active Problems No known active problems Encounters Date Type Department Care Team Description 01/13/2025 Telephone [facility] ADULT DENTAL [address] [place] [address] [facility] change pharmacy 01/12/2025 3:30 PM EDT Office Visit [facility] ADULT DENTAL [address] [place] [address] Amanuel Bell DMD Dental abscess (Primary Dx) 01/06/2025 1:00 PM EDT Office Visit [facility] ADULT DENTAL [address] [place] [address] Amanuel Bell DMD Dental abscess (Primary Dx) 01/06/2025 11:30 AM EDT Office Visit [facility] ADULT DENTAL [address] [place] [address] Amanuel Bell DMD Dental abscess (Primary Dx) [...] Mass Index - - Plan of Treatment Upcoming Encounters Date Type Department Care Team (Late st Contact Info) Description 01/14/2025 9:00 AM EDT Office Visit [facility] ADULT DENTAL [address] [place] [address] Abbi Murrieta [address] [place] [address] [phone] Health Maintenance Due Date Last Done Comments [...] - 19+ 3-dose series) 2005 Pneumococcal Vaccine: Pediatrics (0 to 5 Years) and At-Risk Patients (6 to 49) Years (1 of 2 - PCV) 2005 Pap Smear 10/23/2007 Cervical Cancer Screening 2016 HPV/Cotest 2016 COVID-19 Vaccine (1 - 2023-2 5 season) 2024 Influenza Vaccine (#1) 2024 Tobacco Screening 01/12/2026 01/12/2025 Dental X-Ray: Bitewings 01/13/2026 01/13/20 25, 01/06/2025 Zoster Vaccines (1 of 2) 2036 RSV Patients and Patients Aged 60 years or older (1 - [...] Procedure Name Priority Date/Time Associated Diagnosis Comments INTRAORAL - PERIAPICAL FIRST RADIOGRAPHIC IMAGE Routine 01/12/2025 3:30 PM EDT Dental abscess BITEWING - SINGLE RADIOGRAPHIC IMAGE Routine 01/12/2025 3:30 PM EDT Dental abscess PALLIATIVE (EMERGENCY) TREATMENT OF DENTAL PAIN - MINOR PROCEDURE Routine 01/12/2025 3:30 PM EDT Dental abscess 13 EXTRACTION Routine 01/12/2025 12:00 AM EDT 16 EXTRACTION Routine 01/12/2025 12:00 AM EDT 15 O AMALGAM FILLING Routine 01/12/2025 12:00 AM EDT 14 MOL AMALGAM FILLING Routine 12:00 AM EDT 18 EXTRACTION, ERUPTED TOOTH OR EXPOSED ROOT [...] AM EDT from Last [address] [place] [id number] [place] ST[place] AD[place]
--- OUTSIDE RECORDS SUMMARY | 2025-01-13 11:58 | XMS_ITS | Encounter Summary ---
Author Organization [facility] Address One [facility] [place] [address] Care Team Providers Care Search Marketing Analyst Name Role Phone Grant Ac MD Primary Care Provider +1- [phone] Reason for Visit * Reason Comments Medication Refill Encounter Details Date Type Department Care Team ([facility] Contact Info) Description 2022 Refill Otolaryngology at [address] [phone] Ninfa Julian PA [address] [place] [address] [phone] Nasal obstruction; Chronic allergic rhinitis Social History [...] in a jail (including now)? No 04/12/2022 Comments No Sex and Gender Information Value Date Recorded Sex Assigned at Not on file Legal Sex Female 2:32 PM EDT Gender Identity Not on file Sexual Orientation Not on file documented as of this encounter Plan of Treatment Upcoming Encounters Date Type Department Care Team ([facility] st Contact Info) Description 02/01/2025 3:30 PM EST Office Visit Ophthalmology at [address] [phone] Umair Chavez MD [address] [place] [address] [place] [address] documented as of this encounter Visit Diagnoses Diagnosis Nasal obstruction Other diseases of nasal cavity and sinuses Chronic allergic rhinitis Allergic rhinitis, cause unspecified documented in this encounter Additional Health Concerns Infection Onset Date Last Indicated Resolved Time Rule Out COVID-19 03/14/2024 03/14/2024 03/15/2024 12:01 AM EST documented as of this encounter Care Teams Search Marketing Analyst Relationship Specialty Start Date End Date Grant Ac MD [address] [place] [address] PCP - General Family Medicine 07/02/17 documented as of this encounter
--- OUTSIDE RECORDS SUMMARY | 2025-01-13 11:58 | XMS_ITS | Encounter Summary ---
Author Organization [facility] [place] [address] Care Team Providers Care Clay Shop Supervisor Name Role Phone Grant Ac MD Primary Care Provider +1- [phone] Encounter Details Date Type Department Care Team (Late Contact Info) Description 08/15/2021 Refill Primary Care at [address] [phone] Grant Ac MD [address] [place] [address] Social History Tobacco Use Types Packs/Day [...] 3:30 PM EST Office Visit Ophthalmology at [facility] [address] [place] [address] Umair Chavez MD [address] [facility] [place] [address] documented as of this encounter Visit Diagnoses Not on filedocumented in this encounter Additional Health Concerns Infection Onset Date Last Indicated Resolved Time Rule Out Respiratory 08/16/2021 08/16/20212 022 1:13 AM EDT Rule Out COVID-19 08/16/2021 08/16/2021 08/17/2021 1:13 AM EDT Rule Out COVID-19 03/14/2024 03/14/2024 03/15/2024 12:01 AM EST documented as of this encounter Care Teams Clay Shop Supervisor Relationship Specialty Start Date End Date Grant Ac MD [address] [place] [id number] PCP - General Family Medicine 07/02/17 documented as of this encounter
--- OUTSIDE RECORDS SUMMARY | 2025-01-13 11:58 | XMS_ITS | Encounter Summary ---
Author Organization Counts Include [facility] Address [facility] [place] [address] Care Team Providers Care Filler And Trimmer Name Role Phone Grant Ac MD Primary Care Provider +1- [phone] Reason for Visit * Reason Comments Medication Refill Encounter Details Date Type Department Care Team ([facility] Contact Info) Description 08/27/2023 Refill Otolaryngology at [address] [phone] Ninfa Julian PA [address] [place] [address] [phone] Nasal obstruction; Chronic allergic rhinitis Social History [...] PM EST Office Visit Ophthalmology at [address] [phone] Umair Chavez MD [address] [place] [address] [place] [address] documented as of this encounter Visit Diagnoses Diagnosis Nasal obstruction Other diseases of nasal cavity and sinuses Chronic allergic rhinitis Allergic rhinitis, cause unspecified documented in this encounter Additional Health Concerns Infection Onset Date Last Indicated Resolved Time Rule Out COVID-19 03/14/2024 03/14/2024 03/15/2024 12:01 AM EST documented as of this encounter Care Teams Filler And Trimmer Relationship Specialty Start Date End Date Grant Ac MD [address] [place] [address] PCP - General Family Medicine 07/02/17 documented as of this encounter
--- OUTSIDE RECORDS SUMMARY | 2025-01-13 11:58 | XMS_ITS | Encounter Summary ---
Author Organization [facility] [place] [address] Care Team Providers Care Pharmacist Manager Name Role Phone Grant Ac MD Primary Care Provider +1- [phone] Reason for Visit * Reason Onset Date Comments Neck And Arm Pain 09/09/2024 Encounter Details Date Type Department Care Team (Late st Contact Info) Description 09/09/2024 Nurse Triage Primary Care at [address] [place] [address] Seth Rodríguez RN Neck And Arm [...] place to sleep or slept in a fdc (including now)? No 04/12/2022 DH IPV Inpatient [...] PM EDT Left message to call back. [facility] Please send message for Team B nursing response, advise patient to be near phone with ringer and we will attempt to call back as soon as possible. * Telephone Encounter - Seth Rodríguez RN - 09/10/2024 1:49 PM EDT Copied from [facility] #[id number]. Topic: Generic Non-Symptom Based - Generic Call [...] as possible. Message sent to patient via [employer]. * Telephone Encounter - Seth Rodríguez RN - 09/09/2024 5:22 PM EDT Appointment Request From: Ivonne Andrade With Provider: Grant Ac MD [Primary Care at [place]] Preferred Date Range: 09/10/2024 - 09/14/2024 Preferred [...] Upcoming Encounters Date Type Department Care Team ([facility] st Contact Info) Description 02/01/2025 3:30 PM EST Office Visit Ophthalmology at [address] [phone] Umair Chavez MD [address] [place] [address] [place] [address] documented as of this encounter Visit Diagnoses Not on filedocumented in this encounter Care Teams Pharmacist Manager Relationship Specialty Start Date End Date Grant Ac MD [address] [place] [address] PCP - General Family Medicine 07/02/17 documented as of this encounter
--- OUTSIDE RECORDS SUMMARY | 2025-01-13 11:58 | XMS_ITS | Encounter Summary ---
Author Organization [facility] [place] [address] Care Team Providers Care Lining Machine Tender Name Role Phone Grant Ac MD Primary Care Provider +1- [phone] Reason for Visit * Reason Onset Date Comments Medication Refill 01/03/2021 Encounter Details Date Type Department Care Team (Late Contact Info) Description 01/03/2021 Refill Primary Care at [address] [phone] Grant Ac MD [address] [place] [address] Low back pain Social History Tobacco [...] 3:30 PM EST Office Visit Ophthalmology at [address] [phone] Umair Chavez MD [address] [place] [address] [place] [address] documented as of this encounter Visit Diagnoses Diagnosis Low back pain Lumbago documented in this encounter Additional Health Concerns Infection Onset Date Last Indicated Resolved Time Rule Out Respiratory 08/16/2021 08/16/2021 022 1:13 AM EDT Rule Out COVID-19 08/16/2021 08/16/2021 08/17/2021 1:13 AM EDT Rule Out COVID-19 03/14/2024 03/14/2024 03/15/2024 12:01 AM EST documented as of this encounter Care Teams Lining Machine Tender Relationship Specialty Start Date End Date Grant Ac MD [address] [place] [address] PCP - General Family Medicine 07/02/17 documented as of this encounter
== END 2025-01-13 10:29 | disposition home or self-care (01) ==
LOC: HO.HMCFMS 09:56
PROVIDERS: PCP Student in an Organized Health Care Education/Training Program; Visit Provider Student in an Organized Health Care Education/Training Program
DX: Z79.891 Long term (current) use of opiate analgesic (principal); E66.9 Obesity, unspecified; M43.16 Spondylolisthesis, lumbar region; M43.22 Fusion of spine, cervical region; M54.51 Vertebrogenic low back pain; M50.90 Cervical disc disorder, unspecified, unspecified cervical region; M51.26 Other intervertebral disc displacement, lumbar region; G89.4 Chronic pain syndrome

== ENCOUNTER → 2025-01-13 09:55 | Outpatient (BNVA) | payer OTHER, SELFPAY | PROVIDERS: PCP Student in an Organized Health Care Education/Training Program; Visit Provider Student in an Organized Health Care Education/Training Program | DX: M43.16 Spondylolisthesis, lumbar region (principal); M43.22 Fusion of spine, cervical region; M54.51 Vertebrogenic low back pain; M51.26 Other intervertebral disc displacement, lumbar region; M50.90 Cervical disc disorder, unspecified, unspecified cervical region; E66.9 Obesity, unspecified; Z79.891 Long term (current) use of opiate analgesic; G89.4 Chronic pain syndrome; Z68.36 Body mass index [BMI] 36.0-36.9, adult | CPT/HCPCS: 99212 ==